=== PATIENT | female | born 1940 | race Caucasian/White ===

== ENCOUNTER 2020-01-31 17:51 | Outpatient (CLI) | payer MEDICARE, MEDICAID, SELFPAY ==
[2020-01-31 18:25] LABS: Basophils % 0.4 %; Eosinophils # 0.1 10^3/uL (0.0-0.8); Eosinophils % 1.1 %; Hematocrit 34.4 % (37.0-47.0); Hemoglobin 10.5 g/dL (11.5-15.3); Lymphocytes # 0.8 10^3/uL (0.8-4.8); Lymphocytes % 15.4 %; Mean Corpuscular HGB Conc 30.5 g/dL (30.0-36.0); Mean Corpuscular Hemoglobin 33.2 pg (28.0-34.0); Mean Corpuscular Volume 108.9 fL (81-99); Mean Platelet Volume 10.6 fL (7.4-10.4); Monocytes # 0.9 10^3/uL (0.2-0.9); Monocytes % 16.1 %; Neutrophils # 3.49 10^3/uL (1.8-7.7); Neutrophils % 66.2 %; Nucleated Red Blood Cells % 0 %; Platelet Count 209 10^3/cmm (130-400); Red Blood Count 3.16 10^6/uL (4.1-5.3); Red Cell Distribution Width 13.1 % (12.1-15.1); White Blood Count 5.3 10^3/uL (4.0-10.0)
[2020-01-31 18:48] LABS: Alanine Aminotransferase 17 U/L (0-33); Albumin Level 4.1 g/dL (3.5-5.2); Alkaline Phosphatase 104 IU/L (35-105); Anion Gap 18.9 (5-19); Aspartate Amino Transferase 21 U/L (0-32); Blood Urea Nitrogen 69 mg/dL (8-23); Carbon Dioxide 23 mmol/L (22-29); Chloride 103 mmol/L (98-107); Globulin 2.7 g/dL (1.3-4.6); Glucose 166 mg/dL (65-115); Osmolality Calculated 293 mOsm/kg (285-295); Potassium 4.9 mmol/L (3.5-5.1); Sodium 140 mmol/L (136-145); Total Bilirubin 0.2 mg/dL (0.15-1.2); Total Protein 6.8 g/dL (6.6-8.7)
== END 2020-01-31 17:52 | disposition home or self-care (01) ==
LOC: LAB 17:58
PROVIDERS: Visit Provider Internal Medicine
DX: N18.9 Chronic kidney disease, unspecified (principal)
CPT/HCPCS: 80053; 85025

== ENCOUNTER 2020-08-19 06:00 | Outpatient (RCR) | payer MEDICARE, MEDICAID, SELFPAY | END 2020-08-27 23:59 | disposition home or self-care (01) | LOC: SOT 06:00 | PROVIDERS: Referring Provider Family Medicine; Visit Provider Family Medicine | DX: R53.1 Weakness (principal); W19.XXXD Unspecified fall, subsequent encounter | CPT/HCPCS: 97167; 97530 ==

== ENCOUNTER → 2020-09-19 10:50 | Outpatient (BNVA) | payer MEDICARE, MEDICAID, SELFPAY | PROVIDERS: Visit Provider Surgery | DX: Z01.812 Encounter for preprocedural laboratory examination (principal); Z20.822 Contact with and (suspected) exposure to COVID-19 | CPT/HCPCS: 87635 ==

== ENCOUNTER 2020-09-24 09:23 | Day surgery (SDC) | payer MEDICARE, MEDICAID, SELFPAY ==
[2020-09-24] VITALS (12 sets, daily range): BP systolic 132–171; BP diastolic 63–98; PULSE 79–88; RESP 12–88; TEMP 36.1–36.5; O2SAT 93–99; BMI 31.6
--- NOTE | 2020-09-24 10:03 | W.PM.OPSUD ---
Surgery/Procedure H&P Update DATE OF PROCEDURE: September 24, 2020 DATE H&P PERFORMED: 09/09/20 H&P UPDATE INFORMATION: I have reviewed H&P completed within last 30 days, I have examined patient prior to procedure and No changes to prior documentation PREOP DIAGNOSIS: ckd PLANNED PROCEDURE: Operation Date: 09/24/20 11:10 Proposed Procedures p Lap Possible Open Peritoneal Dialysis Catheter Placement 78020 n18.9(Not Applicable) - Jad Rausch MD
--- NOTE | 2020-09-24 10:06 | ANES.PREANE2 ---
Pre-Anesthetic Assessment Pre-Anesthetic Assessment: Height/Weight: Height 1.65 m Weight 86.183 kg Temp Pulse Resp BP Pulse Ox 96.9 F L 79 18 171/98 99 09/24/20 09:40 09/24/20 09:40 09/24/20 09:40 09/24/20 09:40 09/24/20 09:40 Preop Diagnosis: ckd Proposed Procedure: Operation Date: 09/24/20 11:10 Proposed Procedures p Lap Possible Open Peritoneal Dialysis Catheter Placement 52810 n18.9(Not Applicable) - Jad Rausch MD Familial anesthetic complications: None Was Beta Susy taken within 24 hours: Yes Was Clonidine taken within 24 hours: N/A Last intake: Intake Last Liquid Date 09/23/20 Last Liquid Time 22:30 Last Solid Date 09/23/20 Last Solid Time 22:30 Social: Social History: No alcohol and No tobacco Exam: Pre-Anes Outpt Exam: alert, oriented x 3, clear to auscultation bilaterally and regular rate & rhythm Airway: Cervical ROM: WNL MP: 4 Dentition: Chipped Pulmonary: Comments: Hx pneumonia now requires breathing treatments CV/HEM: CV/HEM: CAD (CABG and 2 stents (> 1 year ago)) and HTN : : Chronic renal Insufficiency GI: GI: GERD Metabolic: Metabolic: DM and Hyperlipidemia Musc/skel: Comments: unable to walk - uses wheelchair, denies any neurologic issues or injuries. States she became weak after her open heart surgery and was unable to bear her weight Anesthetic Plan: ASA status: 4 Anesthesia: General Risk of > 500 ml blood loss (7ml/kg in children): No PFSH Anesthesia PFSH: Medical History (Updated 09/09/20 @ 15:28 by Jad Rausch MD) Anemia Atrial fibrillation CAD (coronary artery disease) Chronic kidney disease Diabetes mellitus Hyperlipidemia Surgical History (Updated 09/09/20 @ 15:26 by Jad Rausch MD) Hx of tonsillectomy S/P CABG x 4 S/P coronary artery stent placement Status post colonoscopy Status post right breast lumpectomy Social History Smoking and tobacco status: former smoker Data Anesthesia Cardiac Studies: No Data to Display
[2020-09-24] MEDS: sodium chloride 0.9% 1,000 ML 30 ML IV (10:13)
[2020-09-24 10:19] LABS: Glucose Point of Care 143 mg/dL (70-110)
[2020-09-24] MEDS: heparin, porcine 1,000 unit/mL INJ 10 mL 10000 UNIT IRRIGATION (10:50)
--- NOTE | 2020-09-24 11:15 | PM.OP ---
Operative Report Date of procedure: September 24, 2020 Pre-op Diagnosis: CKD requiring dialysis Post-op diagnosis: same Procedure Done: Laparoscopic placement of peritoneal dialysis catheter Pathology: none sent Surgeon: Jad Rausch Anesthesia: General Condition: stable Disposition: PACU Procedure: The patient was taken to the operating room and intubated under general anesthesia after IV antibiotic had been administered. The abdomen was prepped and draped in a sterile manner. Using 15 blade a 1 cm incision was made in the left upper quadrant and a Veress needle introduced to create 15 mm of pneumoperitoneum. Using Optiview technique, a 5 mm port was placed and a 5 mm 30? scope was introduced. Another 5 mm port was placed in the left lower quadrant at the level of the umbilicus in the midclavicular line. The pigtail peritoneal dialysis catheter was placed on the abdominal wall and the position marked, an introducer needle was passed through the abdominal wall to the right of the midline inferior to the umbilicus, guidewire passed through the introducer needle, the needle was removed and a dilator sheath was placed over the guidewire and inner dilator and guidewire was removed. The pigtail catheter was introduced as the peel-away sheath was removed with the tip of the catheter in the pelvis and the cuff within the rectus muscle. The catheter was tunneled proximally to exit in the right upper quadrant. A subcutaneous pocket was created. The catheter was attached to a saline bag and there was good inflow and outflow noted. 20 mL of 1:10,000 heparin was injected into the tube. The ports were removed under direct visualization and there was no bleeding from the port sites. The skin at the 5 mm port sites were closed using 4-0 Monocryl and Dermabond. Sterile dressings were applied at the catheter site. The patient was extubated and transferred to recovery room in stable condition.
[2020-09-24] MEDS: ondansetron 2 mg/ML SDV 2 mL 4 MG IVP ×2 (11:19→11:24)
[2020-09-24] MEDS: fentaNYL 50 mcg/mL INJ 2mL IVP ×2 (11:22→11:27)
[2020-09-24] MEDS: HYDROcodone-acetaminophen 5-325 mg Tablet 1 TAB PO (12:36)
--- NOTE | 2020-09-24 13:23 | ANE.PACU2 ---
Inpatient post-anesthesia follow up: Airway intact: Yes Vital signs: Temperature 97.7 F Pulse Rate 86 Respiratory Rate 18 Blood Pressure 167/75 Pulse Oximetry 96 Oxygen Delivery Me thod Room Air Oxygen Flow Rate Fraction of Inspir ed Oxygen Hydration adequate: Yes Nausea and vomiting: No Pain level: 1 Mental status: Baseline
== END 2020-09-24 13:43 | disposition home or self-care (01) ==
PROVIDERS: Visit Provider Surgery
PROC: 0WHG43Z Insertion of Infusion Device into Peritoneal Cavity, Percutaneous Endoscopic Approach (ICD-10-PCS; CPT 49324; principal; 2020-09-24 11:10)
DX: E11.22 Type 2 diabetes mellitus with diabetic chronic kidney disease (principal); I12.0 Hypertensive chronic kidney disease with stage 5 chronic kidney disease or end stage renal disease; N18.6 End stage renal disease; Z99.2 Dependence on renal dialysis; I25.10 Atherosclerotic heart disease of native coronary artery without angina pectoris; Z95.1 Presence of aortocoronary bypass graft; Z95.5 Presence of coronary angioplasty implant and graft; K21.9 Gastro-esophageal reflux disease without esophagitis; E78.5 Hyperlipidemia, unspecified; Z87.891 Personal history of nicotine dependence
CPT/HCPCS: 49324; 36416; 82962; C1750; J0690; J1644; J2405; J2704; J2710; J3010; J3490; J7030

== ENCOUNTER 2020-10-24 22:49 | Emergency (ER) | payer MEDICARE, MEDICAID, SELFPAY ==
[2020-10-24 22:52] VITALS: BP 115/56; PULSE 108; RESP 22; TEMP 37.2; O2SAT 98; BMI 31.8
[2020-10-24 22:56] VITALS: BP 129/63; PULSE 70; RESP 17; TEMP 36.8; O2SAT 99
--- NOTE | 2020-10-24 23:01 | ED_ITS ---
HPI - General Adult General: Chief complaint: Fever Stated complaint: abd pain Time Seen by Provider: 10/24/20 22:58 History of Present Illness: HPI narrative: Patient presents via ambulance with complaint of possible infection to skin the lower abdomen. Patient states that she was seen here by family because they said her skin was infected. Patient recently had dialysis catheter placed Associated symptoms: Deny chest pain, dyspnea, headache(s), nausea, rash or vomiting Review of Systems Const: Denies: fever(s), chills or body aches Eyes: Denies: change in vision or blurry vision ENMT: Denies: throat pain or nasal congestion Card: Denies: chest pain or dyspnea on exertion Resp: Denies: dyspnea, productive cough or non-productive cough GI: Denies: abdominal pain, nausea or vomiting Musc: Denies: extremity pain Skin/Breast: Reports: erythema (Lower abdomen area) and skin tenderness; Denies: rash Neuro: Denies: headache(s) Psych: Denies: anxiety or depression Chito/Lymph: Denies: easy bruising PFSH ED PFSH: Medical History Anemia Atrial fibrillation CAD (coronary artery disease) Chronic kidney disease Diabetes mellitus Hyperlipidemia Surgical History Hx of tonsillectomy Peritoneal dialysis catheter in situ (09/24/20) S/P CABG x 4 S/P coronary artery stent placement Status post colonoscopy Status post right breast lumpectomy Social History Smoking and tobacco status: former smoker Physical Exam Const: COMMON NORMALS: no acute distress Chest: COMMONS NORMALS: normal inspection of the chest Resp: COMMON NORMALS: normal respiratory effort and clear to auscultation bilaterally AUSCULTATION: clear to auscultation bilaterally Cardio: COMMON NORMALS: regular rate RATE: regular rate Skin: WOUNDS: Yes surgical site (Appears normal. Below the wound there is superficial redness to the skin) Details: other (Redness extends across lower abdomen probably 4 to 5 inches and 3 inches vertically) Course Vital Signs: Vital signs: Vital Signs Temperature 98.2 F 10/24/20 22:56 Pulse Rate 70 10/24/20 22:56 Respiratory Rate 17 10/24/20 22:56 Blood Pressure 129/63 10/24/20 22:56 Pulse Oximetry 99 10/24/20 22:56 MDM - General Adult MDM Narrative: Medical decision making narrative: Discussed presentation patient signs symptoms with Dr. Cortez- went over the labs. Patient is not started peritoneal dialysis get that scheduled in 2 weeks. Gregg seems to have a mild cellulitis to the upper fat layer that extends out both sides of the abdomen nontender very superficial. Lines been drawn to marked major how the redness is extended. Patient family member will observe and watch that. Lab Data: Labs: Lab Results 10/24/20 10/24/20 10/24/20 Range/Units 22:56 22:56 23:52 WBC 18.0 H (4.0-10.0) 10^3/ uL RBC 2.94 L (4.1-5.3) 10^6/u L Hgb 9.6 L (11.5-15.3) g/dL Hct 29.7 L (37.0-47.0) % MCV 101.0 H (81-99) fL MCH 32.7 (28.0-34.0) pg MCHC 32.3 (30.0-36.0) g/dL RDW 13.2 (12.1-15.1) % Plt Count 177 (130-400) 10^3/c mm MPV 10.5 H (7.4-10.4) fL Neut % (Auto) 96.0 % Lymph % (Auto) 1.0 % Meade % (Auto) 2.0 % Eos % (Auto) 0.0 % Baso % (Auto) 0.2 % Neut # (Auto) 17.28 H (1.8-7.7) 10^3/u L Lymph # (Auto) 0.2 L (0.8-4.8) 10^3/u L Meade # (Auto) 0.4 (0.2-0.9) 10^3/u L Eos # (Auto) 0.0 (0.0-0.8) 10^3/u L Baso # (Auto) 0.0 (0.0-0.1) 10^3/u L Nucleated RBC % (a uto) 0 % Nucleated RBCs # 0.0 /100WBC Sodium 135 L (136-145) mmol/L Potassium 4.0 (3.5-5.1) mmol/L Chloride 96 L (98-107) mmol/L Carbon Dioxide 20 L (22-29) mmol/L Anion Gap 23.0 H (5-19) BUN 87 H* (8-23) mg/dL Creatinine 3.8 H (0.5-0.9) mg/dL GFR Calculation Not Reportable Glucose 160 H (65-115) mg/dL Calculated Osmolal ity 310 H (285-295) mOsm/k g Lactic Acid 1.1 (0.5-2.2) mmol/L Calcium 9.8 (8.5-10.5) mg/dL Urine Color (Yellow) Urine Appearance (CLEAR) Urine pH (5-7) Ur Specific Gravit y (1.005-1.030) Urine Protein (Negative) Urine Glucose (UA) (Normal) Urine Ketones (Negative) Urine Blood (Negative) Urine Nitrate (Negative) Urine Bilirubin (Negative) Urine Urobilinogen (Negative) mg/dL Ur Leukocyte Bernadette ase (Negative) Urine RBC (0-2) /hpf Urine WBC (0-5) /hpf Ur Squamous Epith Cells (0-5) /hpf Amorphous Sediment Urine Bacteria (NONE) /hpf 10/24/20 Range/Units 23:52 WBC (4.0-10.0) 10^3/ uL RBC (4.1-5.3) 10^6/u L Hgb (11.5-15.3) g/dL Hct (37.0-47.0) % MCV (81-99) fL MCH (28.0-34.0) pg MCHC (30.0-36.0) g/dL RDW (12.1-15.1) % Plt Count (130-400) 10^3/c mm MPV (7.4-10.4) fL Neut % (Auto) % Lymph % (Auto) % Meade % (Auto) % Eos % (Auto) % Baso % (Auto) % Neut # (Auto) (1.8-7.7) 10^3/u L Lymph # (Auto) (0.8-4.8) 10^3/u L Meade # (Auto) (0.2-0.9) 10^3/u L Eos # (Auto) (0.0-0.8) 10^3/u L Baso # (Auto) (0.0-0.1) 10^3/u L Nucleated RBC % (a uto) % Nucleated RBCs # /100WBC Sodium (136-145) mmol/L Potassium (3.5-5.1) mmol/L Chloride (98-107) mmol/L Carbon Dioxide (22-29) mmol/L Anion Gap (5-19) BUN (8-23) mg/dL Creatinine (0.5-0.9) mg/dL GFR Calculation Glucose (65-115) mg/dL Calculated Osmolal ity (285-295) mOsm/k g Lactic Acid (0.5-2.2) mmol/L Calcium (8.5-10.5) mg/dL Urine Color Yellow (Yellow) Urine Appearance Clear (CLEAR) Urine pH 5 (5-7) Ur Specific Gravit y 1.010 (1.005-1.030) Urine Protein 1+ H (Negative) Urine Glucose (UA) Norm (Normal) Urine Ketones Negative (Negative) Urine Blood Neg (Negative) Urine Nitrate Negative (Negative) Urine Bilirubin Neg (Negative) Urine Urobilinogen Norm (Negative) mg/dL Ur Leukocyte Bernadette ase Negative (Negative) Urine RBC 0-4 H (0-2) /hpf Urine WBC 0-4 H (0-5) /hpf Ur Squamous Epith Cells 0-4 H (0-5) /hpf Amorphous Sediment Not Reportable Urine Bacteria Trace (NONE) /hpf Discharge Plan Discharge Patient Disposition: Home Clinical Impression: Cellulitis Qualifiers: Site of cellulitis: other site Qualified Code(s): L03.818 - Cellulitis of other sites Chronic kidney disease Qualifiers: Chronic kidney disease stage: stage 4 (severe) Qualified Code(s): N18.4 - Chronic kidney disease, stage 4 (severe) Condition: Stable Prescriptions: New cephalexin 250 mg capsule 250 mg PO TID 7 Days Qty: 21 RF: 0 No Action albuterol sulfate 0.63 mg/3 mL solution for nebulization 0.63 mg inhalation Q6H RF: 0 amiodarone 200 mg tablet 200 mg PO DAILY RF: 0 apixaban 2.5 mg tablet 2.5 mg PO BID RF: 0 Hold Instructions: Resume on 09/27/20. cholecalciferol (vitamin D3) 25 mcg (1,000 unit) capsule 25 mcg PO DAILY RF: 0 docusate sodium 50 mg/5 mL liquid 50 mg PO DAILY RF: 0 ferrous sulfate 325 mg (65 mg iron) tablet 325 mg PO DAILY RF: 0 furosemide 40 mg tablet 80 mg PO BID RF: 0 insulin lispro 100 unit/mL insulin pen 3 unit SUBCUT TID RF: 0 metoprolol succinate 25 mg tablet extended release 24 hr 12.5 mg PO DAILY RF: 0 mirtazapine 30 mg tablet 30 mg PO DAILY RF: 0 pantoprazole 20 mg tablet,delayed release (DR/EC) 20 mg PO DAILY RF: 0 potassium chloride 10 mEq capsule, extended release 10 meq PO DAILY RF: 0 sertraline 25 mg tablet 12.5 mg PO DAILY RF: 0 tramadol 50 mg tablet 50 mg PO Q6H PRN (Reason: Pain) RF: 0 simvastatin 20 mg tablet 20 mg PO DAILY RF: 0 calcium acetate 667 mg Tablet 667 mg PO TID RF: 0 Discharge Orders: Discharge ED (Routine); Ordered 10/25/20 Ordered By: Amado Church Discharge Diet: Usual diet Discharge Activity: Resume usual activity Patient Instructions: Cellulitis (ED) Activity Restrictions/Additional Instructions: Follow-up with medical provider as directed. Take medications as prescribed. Return to the ER or your medical provider if condition worsens. Please read and understand discharge instructions. If any questions ask please. Discussed patient's condition with Dr. Aburto's nurse tomorrow. Coding Level of Care Code ED Instructional Support Technician for Yulia Fwd Exam Detailed
[2020-10-24 23:11] LABS: Basophils % 0.2 %; Hematocrit 29.7 % (37.0-47.0); Hemoglobin 9.6 g/dL (11.5-15.3); Lymphocytes # 0.2 10^3/uL (0.8-4.8); Mean Corpuscular HGB Conc 32.3 g/dL (30.0-36.0); Mean Corpuscular Hemoglobin 32.7 pg (28.0-34.0); Mean Platelet Volume 10.5 fL (7.4-10.4); Monocytes # 0.4 10^3/uL (0.2-0.9); Neutrophils # 17.28 10^3/uL (1.8-7.7); Nucleated Red Blood Cells % 0 %; Platelet Count 177 10^3/cmm (130-400); Red Blood Count 2.94 10^6/uL (4.1-5.3); Red Cell Distribution Width 13.2 % (12.1-15.1)
[2020-10-24 23:25] LABS: Calcium 9.8 mg/dL (8.5-10.5); Carbon Dioxide 20 mmol/L (22-29); Chloride 96 mmol/L (98-107); Glucose 160 mg/dL (65-115); Osmolality Calculated 310 mOsm/kg (285-295); Sodium 135 mmol/L (136-145)
[2020-10-24 23:26] VITALS: BP 134/72; PULSE 72; RESP 16; TEMP 36.6; O2SAT 98
[2020-10-24 23:30] LABS: Blood Urea Nitrogen 87 mg/dL (8-23)
--- NOTE | 2020-10-24 23:32 | ECG_ITS ---
[facility] Test Date: 2020-10-24 Pat Name: Marie Bryant Department: Room: Gender: Female [employer] Operator: : 1940 Requested By: Amado Church Order Number: [id number] Daljit MD: Eusebio Rojo M.D. Measurements Intervals [place] Rate: 86 P: DC: QRS: -19 QRSD: 121 T: -4 QT: 289 QTc: 346 Interpretive Statements ATRIAL FIBRILLATION MODERATE VOLTAGE CRITERIA FOR LVH, CONSIDER NORMAL VARIANT [MEETS CRITERIA IN ONE OF: R(aVL), S(V1), R(V5), R(V5/V6)+S(V1)] POSSIBLE ANTERIOR MYOCARDIAL INFARCTION , OF INDETERMINATE AGE [30 ms Q WAVE IN V3/V4, OR R < 0.2 mV IN V4] INFERIOR MYOCARDIAL INFARCTION , OF INDETERMINATE AGE [40+ ms Q WAVE AND/OR ST/T ABNORMALITY IN II/aVF] Compared to ECG 10/04/2017 15:04:16 Indeterminate axis now present Myocardial infarct finding now present Sinus rhythm no longer present Electronically Signed On 10-26-2020 16:03:48 CDT by Eusebio Rojo M.D. [email or web address]
--- NOTE | 2020-10-24 23:33 | XRR_ITS ---
PROCEDURE INFORMATION: Exam: XR Chest Exam date and time: 10/24/2020 11:34 PM Age: 79 years old Clinical indication: Fever; Prior surgery TECHNIQUE: Imaging protocol: XR of the chest. Views: 1 view. COMPARISON: CR Chest 1 view [id number] 10/06/2017 5:05 AM FINDINGS: Lungs: Unremarkable. No consolidation. Pleural spaces: Unremarkable. No pleural effusion. No pneumothorax. Heart/Mediastinum: Changes of coronary artery bypass are noted. Bones/joints: No acute findings. XR/XR chest 1V portable [id number] IMPRESSION: No acute findings.
[2020-10-25 00:18] LABS: Lactic Sepsis W/Reflex 1.1 mmol/L (0.5-2.2)
[2020-10-25 00:23] LABS: Add Urine Microscopic? YES; Bilirubin Urine Neg (Negative); Blood Urine Neg (Negative); Glucose Urine UA Norm (Normal); Ketones Urine Negative (Negative); Leukocyte Esterase Urine Negative (Negative); Nitrate Urine Negative (Negative); Protein Urine 1+ (Negative); Urine Appearance Clear (CLEAR); Urine Color Yellow (Yellow); Urobilinogen Urine Norm (Negative); pH Urine 5 (5-7)
[2020-10-25 00:24] LABS: Bacteria Urine TRACE /hpf; RBC Urine 0-4 /hpf (0-2); Squamous Epithelial Cell Urine 0-4 /hpf (0-5); WBC Urine 0-4 /hpf (0-5)
[2020-10-25] MEDS: acetaminophen 500 mg Tablet PO (00:43)
== END 2020-10-25 01:26 | disposition home or self-care (01) ==
PROVIDERS: Emergency Provider Nurse Practitioner Family
DX: L03.818 Cellulitis of other sites (principal); E11.22 Type 2 diabetes mellitus with diabetic chronic kidney disease; N18.4 Chronic kidney disease, stage 4 (severe); Z79.4 Long term (current) use of insulin; I48.91 Unspecified atrial fibrillation; I25.10 Atherosclerotic heart disease of native coronary artery without angina pectoris; E78.5 Hyperlipidemia, unspecified; Z95.1 Presence of aortocoronary bypass graft; Z87.891 Personal history of nicotine dependence
CPT/HCPCS: 71045; 80048; 81001; 83605; 85025; 87040; 87077; 87186; 93005; 96365; 99284; J0696

== ENCOUNTER 2021-03-23 10:51 | Outpatient (CLI) | payer MEDICARE, MEDICAID, SELFPAY ==
--- NOTE | 2021-03-23 11:01 | XR_ITS ---
WS: [id number] Exam: XR cervical spine 3V* [id number] Date/Time of Exam: 03/23/2021 11:01 AM Reason For Exam: ACUTE TORTICOLLIS No acute fracture or dislocation. The odontoid is intact. Degenerative disc changes and facet DJD at all levels. Paraspinal soft tissues are unremarkable. XR/XR cervical spine 3V* [id number] IMPRESSION: 1. Degenerative changes. No fracture or malalignment.
== END 2021-03-23 10:52 | disposition home or self-care (01) ==
LOC: RAD 10:56
PROVIDERS: PCP Family Medicine; Visit Provider Family Medicine
DX: M43.6 Torticollis (principal)
CPT/HCPCS: 72040

== ENCOUNTER 2021-05-29 12:49 | Inpatient (IN) | payer MEDICARE, MEDICAID, SELFPAY ==
[2021-05-29] VITALS (16 sets, daily range): BP systolic 74–113; BP diastolic 39–57; PULSE 66–105; RESP 15–27; TEMP 36.6; O2SAT 88–100; BMI 33.3; BMI 31.3
--- NOTE | 2021-05-29 12:54 | XR_ITS ---
WS: [id number] CHEST XRAY TECHNIQUE: Portable chest. CLINICAL INFORMATION: dyspnea/cough COMPARISON: October 24, 2020 FINDINGS: Heart: Cardiomegaly. Sternotomy. CABG. Aortic calcification. Lungs:Shallow inspiration. Moderate to advanced chronic emphysematous changes. Fibrosis in the lung a pices. No acute-appearing pulmonary infiltrates. Bones: Osteopenia. XR/XR chest 1V portable [id number] IMPRESSION: 1. Cardiomegaly with prior CABG. 2. Moderate to advanced chronic emphysematous changes. No acute pulmonary infi ltrates.
--- NOTE | 2021-05-29 12:54 | CT_ITS ---
WS: [id number] CT HEAD TECHNIQUE: Noncontrast CT of the head obtained from the skullbase to the vertex. CLINICAL INFORMATION: AMS COMPARISON: CT 4 DLP: 1022.[address] scans at [facility] use at least one of these dose optimization techniques: automated e xposure control; mA and/or kV adjustment per patient size (includes targeted exams where dose is matc hed to clinical indication); or iterative reconstruction. FINDINGS: Low-attenuation change in the right posterior temporal lobe extending to the cortex in the right DOG TRAINER territory measuring 3.5 x 3.5 cm compatible with subacute DOG TRAINER territory infarct. No evidence of intr acranial hemorrhage. Incidental dystrophic calcification left frontal white matter unchanged. Intracr anial vascular calcification. Mild small vessel changes. Moderate parenchymal volume loss. A few tiny chronic lacunar infarcts in the left basal ganglia. Tiny chronic lacunar infarct right cerebellum. M astoid air cells and paranasal sinuses are well aerated. CT/CT head wo con* [id number] IMPRESSION: 1. No evidence of intracranial hemorrhage 2. Low-attenuation change in the right DOG TRAINER territory extending to the cortex i nvolves the posterior right temporal lobe measuring 3.5 x 3.5 cm compatible wit h subacute DOG TRAINER territory infarct. 3. Mild small vessel changes with moderate parenchymal volume loss. Notified Tera Lemons DO at 05/29/2021 1:41 PM.
--- NOTE | 2021-05-29 12:54 | W.ED.GENADLT ---
HPI - General Adult General: Chief complaint: Weakness Stated complaint: DECREASED RESPONSIVENESS/ DECREASED BP Time Seen by Provider: 05/29/21 12:54 History of Present Illness: HPI narrative: 80-year-old female presents emergency room via EMS with complaints of generalized weakness and decreased responsiveness. She barely speaks both whisper but she does answer all questions appropriately she just seems very lethargic. Extremely weak. Her only complaint seems to have some mild abdominal discomfort denies any chest pain. Patient is on peritoneal dialysis. Currently she does have a little treatment of peritoneal dialysis fluid in her abdomen. She has not had any fever sweats or chills. She denies any shortness of breath. No vomiting or diarrhea. Abdominally this began through the night and progressively worsened through the day. She has history of diabetes mellitus atrial fibrillation is on Eliquis she also has a history of hypertension. She is on amlodipine amiodarone diuretics and metoprolol. Onset (ago): hour(s) Location: abdomen Radiation: non-radiation Severity: mild Quality: aching Pain Consistency: constant Relieving factors: none Exacerbating factors: other (Palpation) Associated symptoms: Reports malaise and weakness; Deny chest pain, confusion, cough, diaphoresis, decreased appetite, dyspnea, fevers/chills, headache(s), nausea, rash, palpitations, seizures, short of breath, syncope or vomiting Treatments prior to arrival: none Review of Systems Const: Reports: malaise; Denies: diaphoresis ENMT: Denies: throat pain, ear or mastoid pain, nasal discharge or nasal congestion Card: Denies: chest pain, palpitations or syncope Resp: Denies: dyspnea GI: Denies: nausea or vomiting : Denies: flank pain, difficulty voiding, dysuria, urinary frequency or urinary urgency Skin/Breast: Denies: rash Neuro: Denies: headache(s) or confusion PFS ED PFSH: Medical History (Updated 05/30/21 @ 14:18 by Tera Lemons DO) Anemia Atrial fibrillation CAD (coronary artery disease) Chronic kidney disease Diabetes mellitus GERD (gastroesophageal reflux disease) HTN (hypertension) Hyperlipidemia Sepsis Surgical History Hx of tonsillectomy Peritoneal dialysis catheter in situ (09/24/20) S/P CABG x 4 S/P coronary artery stent placement Status post colonoscopy Status post right breast lumpectomy Family History (Updated 05/30/21 @ 12:20 by Nancy Malave MD) Other Medical history non-contributory Social History Smoking and tobacco status: former smoker Physical Exam Const: COMMON NORMALS: no acute distress GENERAL APPEARANCE: cooperative and comfortable HENMT: COMMON NORMALS: normocephalic, atraumatic and hearing grossly normal bilaterally HEAD & SCALP: normocephalic and atraumatic Neck/C-Spine: COMMON NORMALS: no JVD Resp: COMMON NORMALS: normal respiratory effort, No retractions, No use of accessory muscles and clear to auscultation bilaterally AUSCULTATION: clear to auscultation bilaterally Cardio: COMMON NORMALS: no JVD, regular rate, regular rhythm and No murmurs present (Cardio) RATE: regular rate RHYTHM: regular rhythm GI: COMMON NORMALS: Soft to palpation and No hepatosplenomegaly present AUSCULTATION: Yes normoactive bowel sounds PALPATION: Yes Soft to palpation, No Tenderness to palpation present (GI), No Guarding due to palpation present (GI) and Yes No hepatosplenomegaly present Extremity: COMMON NORMALS: normal to inspection, capillary refill normal, no clubbing, cyanosis or edema, no calf tenderness and no pedal edema Skin: COMMON NORMALS: no rashes or lesions noted GENERAL SKIN EXAM: no rashes or lesions noted Course Vital Signs: Vital signs: Vital Signs Temperature 97.8 F 05/29/21 19:09 Pulse Rate 82 05/30/21 11:00 Respiratory Rate 24 H 05/30/21 11:00 Blood Pressure 97/50 05/30/21 11:00 Pulse Oximetry 96 05/30/21 11:00 MDM - General Adult MDM Narrative: Medical decision making narrative: Patient significantly hypokalemic. She also has a new subacute stroke on plain CT. Her last known well time is well outside of the frame of treatment. In addition to that she is on anticoagulation. Her stroke score is 4. I drilled down to the family it would seem that her last known well time was sometime around 530 or 6:00 last evening nearing 24 hours. I did contact Dr. Richards presented the case to her she agreed that she really is not a candidate for any kind of intervention. Will admit for stroke as well as severe hypokalemia discussed with hospitalist orders written Lab Data: Labs: Lab Results 05/29/21 05/29/21 05/29/21 12:22 12:22 12:22 WBC 16.7 10^3/uL H 10 ^3/uL (4.0-10.0) RBC 3.42 10^6/uL L 10 ^6/uL (4.1-5.3) Hgb 12.0 g/dL g/dL (11.5-15.3) Hct 35.8 % L % (37.0-47.0) MCV 104.7 fl H fl (81-99) MCH 35.1 pg H pg (28.0-34.0) MCHC 33.5 g/dL g/dL (30.0-36.0) RDW 21.1 % H % (12.1-15.1) Plt Count 160 10^3/cmm 10^3 /cmm (130-400) MPV 11.5 fL H fL (7.4-10.4) Lymph % (Auto) Not Reportable [place] % (Auto) Not Reportable Lymph # (Auto) Not Reportable [place] # (Auto) Not Reportable Total Counted Atypical Lymphs % Segmented Neutroph ils Band Neutrophils Lymphocytes (Manua l) Monocytes (Manual) Eosinophils (Manua l) Basophils (Manual) Nucleated RBCs Platelet Estimate Polychromasia Poikilocytosis Anisocytosis Ovalocytes Specimen Type Sample Site ABG pH ABG pCO2 ABG pO2 ABG HCO3 ABG O2 Saturation ABG Base Excess Dayne Test A-a O2 Gradient Hematocrit Hgb O2 Saturation Carboxyhemoglobin Methemoglobin Total Hemoglobin Ionized Calcium O2 Delivery Device O2 Liters/Min FiO2 Core Blower Operator ID Sodium 133 mmol/L L mmol /L (136-145) Potassium 1.5 mmol/L L* mmo l/L (3.5-5.1) Chloride 89 mmol/L L mmol/ L (98-107) Carbon Dioxide 25 mmol/L mmol/L (22-29) Anion Gap 20.5 H (5-19) BUN 36 mg/dL H mg/dL (8-23) Creatinine 4.2 mg/dL H mg/dL (0.5-0.9) GFR Calculation Not Reportable Glucose 111 mg/dL mg/dL (65-115) Calculated Osmolal ity 285 mOsm/kg mOsm/ kg (285-295) Lactic Acid Calcium 9.8 mg/dL mg/dL (8.5-10.5) Magnesium 1.5 mg/dL L mg/dL (1.7-2.3) Total Bilirubin 0.4 mg/dL mg/dL (0.15-1.2) AST 20 U/L U/L (0-32) ALT 21 U/L U/L (0-33) Alkaline Phosphata se 143 IU/L H IU/L (35-105) Creatine Kinase 50 U/L U/L (26-192) Troponin T Baselin e Troponin T 120 Min [place] Troponin T C-Reactive Protein 50.8 mg/L H mg/L (0.0-4.9) Total Protein 5.5 g/dL L g/dL (6.6-8.7) Albumin 2.9 g/dL L g/dL (3.5-5.2) Globulin 2.6 g/dL g/dL (1.3-4.6) Triglycerides Cholesterol LDL Cholesterol, C alc Total VLDL Cholest golden HDL Cholesterol Cholesterol/HDL Ra rob Lipase 24 U/L U/L (13-60) Procalcitonin 1.22 ng/mL H ng/m L (0-0.5) Serum Ketones Negative (Negative) 05/29/21 05/29/21 05/29/21 12:22 12:22 12:22 WBC RBC Hgb Hct MCV MCH MCHC RDW Plt Count MPV Lymph % (Auto) [place] % (Auto) Lymph # (Auto) [place] # (Auto) Total Counted 100 (0-100) Atypical Lymphs % 1.0 % % (0-5) Segmented Neutroph ils 89 % % Band Neutrophils 2.0 % % Lymphocytes (Manua l) 3 % % Monocytes (Manual) 5.0 % % Eosinophils (Manua l) 0 % % Basophils (Manual) 0.0 % % Nucleated RBCs 6.0 /100WBC H /10 0WBC (0-1) Platelet Estimate Normal (Normal) Polychromasia 1+ H Poikilocytosis Trace Anisocytosis Trace Ovalocytes Trace Specimen Type Sample Site ABG pH ABG pCO2 ABG pO2 ABG HCO3 ABG O2 Saturation ABG Base Excess Dayne Test A-a O2 Gradient Hematocrit Hgb O2 Saturation Carboxyhemoglobin Methemoglobin Total Hemoglobin Ionized Calcium O2 Delivery Device O2 Liters/Min FiO2 Core Blower Operator ID Sodium Potassium Chloride Carbon Dioxide Anion Gap BUN Creatinine GFR Calculation Glucose Calculated Osmolal ity Lactic Acid Calcium Magnesium Total Bilirubin AST ALT Alkaline Phosphata se Creatine Kinase Troponin T Baselin e 257 ng/L H* ng/L (0-10) Troponin T 120 Min [place] Troponin T C-Reactive Protein Total Protein Albumin Globulin Triglycerides 155 mg/dL H mg/dL (0-150) Cholesterol 126 mg/dL mg/dL (0-200) LDL Cholesterol, C alc 45 mg/dL L mg/dL (50-129) Total VLDL Cholest golden 31 mg/dL H mg/dL (0-30) HDL Cholesterol 50 mg/dL L mg/dL (60-100) Cholesterol/HDL Ra rob 2.52 mg/dL mg/dL (0.0-4.40) Lipase Procalcitonin Serum Ketones 05/29/21 05/29/21 05/29/21 13:12 14:00 14:32 WBC RBC Hgb Hct MCV MCH MCHC RDW Plt Count MPV Lymph % (Auto) [place] % (Auto) Lymph # (Auto) [place] # (Auto) Total Counted Atypical Lymphs % Segmented Neutroph ils Band Neutrophils Lymphocytes (Manua l) Monocytes (Manual) Eosinophils (Manua l) Basophils (Manual) Nucleated RBCs Platelet Estimate Polychromasia Poikilocytosis Anisocytosis Ovalocytes Specimen Type Arterial Sample Site Brachial, left ABG pH 7.49 H (7.35-7.45) ABG pCO2 36.5 mmHg mmHg (35-45) ABG pO2 59.5 mmHg L mmHg (80.0-100.0) ABG HCO3 27.5 mmol/L H mmo l/L (22-26) ABG O2 Saturation 93.1 ABG Base Excess 4.0 mmol/L H mmol /L (-2.0-2.0) Dayne Test N/a A-a O2 Gradient 15.6 mmHg H mmHg (5-10) Hematocrit 34.3 % L % (37-47) Hgb O2 Saturation 91.9 % L % (95-100) Carboxyhemoglobin 0.6 %THgb %THgb (0.4-20.1) Methemoglobin 0.7 % % (0.4-1.5) Total Hemoglobin 11.2 g/dL L g/dL (12-16) Ionized Calcium 1.4 mmol/L mmol/L (1.1-1.4) O2 Delivery Device Nc O2 Liters/Min 3.0 % % FiO2 32.0 % % Core Blower Operator ID Gd Sodium 132.0 mmol/L mmol /L (131-143) Potassium 1.7 mmol/L L mmol /L (3.5-5.0) Chloride Carbon Dioxide Anion Gap BUN Creatinine GFR Calculation Glucose 84.0 mg/dL mg/dL (70-115) Calculated Osmolal ity Lactic Acid 4.2 mmol/L H* mmo l/L (0.5-2.2) Calcium Magnesium Total Bilirubin AST ALT Alkaline Phosphata se Creatine Kinase Troponin T Baselin e Troponin T 120 Min [place] 238.2 ng/L H ng/L (0-10) Delta Troponin T -18.8 ABS# L ABS# (0-10) C-Reactive Protein Total Protein Albumin Globulin Triglycerides Cholesterol LDL Cholesterol, C alc Total VLDL Cholest golden HDL Cholesterol Cholesterol/HDL Ra rob Lipase Procalcitonin Serum Ketones Discharge Plan Discharge Patient Disposition: Admitted As Inpatient Admit Provider: Nancy Malave Clinical Impression: CVA (cerebral vascular accident), Chronic anticoagulation, End stage renal failure on dialysis, GERD (gastroesophageal reflux disease), HTN (hypertension), Acute hypokalemia Condition: Stable Coding Level of Care Code ED Hydro Mechanic for g Fwd Exam Comprehensive NIH stroke score NIHSS Level Of Consciousness - 1a: 1 Level Of Consciousness Questions - 1b: Both Correct Level Of Consciousness Commands - 1c: Both Correct Best Gaze - 2: Normal Visual Espinoza - 3: No Visual Loss Facial Palsy - 4: Normal Motor Arm Right - 5: No Drift Motor Arm Left - 5: Drift Motor Leg Right - 6: No Drift Motor Leg Left - 6: Drift Limb Ataxia - 7: Absent Sensory - 8: Normal Best Language - 9: No Aphasia Dysarthia - 10: Mild/Moderate Dysarthia Extinction And Inattention - 11: 0 Score Total Score: 4
--- NOTE | 2021-05-29 12:55 | ECG_ITS ---
[facility] Test Date: 2021-05-29 Pat Name: Marie Bryant Department: Room: ICU04 Gender: Female Motor And Generator Assembler: : 1940 Requested By: Tera Platt Order Number: [id number] Reading MD: Eusebio Rojo M.D. Measurements Intervals [place] Rate: 80 P: [place]: QRS: -24 QRSD: 141 T: 0 QT: 241 QTc: 279 Interpretive Statements ATRIAL FIBRILLATION INDETERMINATE AXIS INTRAVENTRICULAR CONDUCTION DELAY [130+ ms QRS DURATION] POSSIBLE ANTERIOR MYOCARDIAL INFARCTION , PROBABLY OLD [30 ms Q WAVE IN V3/V4, OR R < 0.2 mV IN V4] INFERIOR MYOCARDIAL INFARCTION , PROBABLY OLD [40+ ms Q WAVE AND/OR ST/T ABNORMALITY IN II/aVF] Compared to ECG 10/24/2020 23:47:20 Indeterminate axis now present Intraventricular conduction delay now present Myocardial infarct finding still present Electronically Signed On 05-30-2021 4:48:19 RN CLINICAL RESEARCH by Eusebio Rojo M.D. [id number] f
--- NOTE | 2021-05-29 13:04 | PC.NURSE ---
PT PLACED ON CONTINUOUS SPO2, NIBP, AND CM.
[2021-05-29 13:09] LABS: Hematocrit 35.8 % (37.0-47.0); Mean Corpuscular HGB Conc 33.5 g/dL (30.0-36.0); Mean Corpuscular Hemoglobin 35.1 pg (28.0-34.0); Mean Corpuscular Volume 104.7 fl (81-99); Mean Platelet Volume 11.5 fL (7.4-10.4); Platelet Count 160 10^3/cmm (130-400); Red Blood Count 3.42 10^6/uL (4.1-5.3); Red Cell Distribution Width 21.1 % (12.1-15.1); White Blood Count 16.7 10^3/uL (4.0-10.0)
--- NOTE | 2021-05-29 13:22 | PC.NURSE ---
TO CT VIA STRETCHER MECHANICAL SHOP LABORER NURSE AND MONITOR.
[2021-05-29 13:26] LABS: Ketone (Acetest) Serum Negative (Negative)
[2021-05-29 13:31] LABS: Alanine Aminotransferase 21 U/L (0-33); Albumin Level 2.9 g/dL (3.5-5.2); Alkaline Phosphatase 143 IU/L (35-105); Anion Gap 20.5 (5-19); Aspartate Amino Transferase 20 U/L (0-32); Blood Urea Nitrogen 36 mg/dL (8-23); C Reactive Protein 50.8 mg/L (0.0-4.9); Calcium 9.8 mg/dL (8.5-10.5); Carbon Dioxide 25 mmol/L (22-29); Chloride 89 mmol/L (98-107); Creatine Phosphokinase 50 U/L (26-192); Globulin 2.6 g/dL (1.3-4.6); Glucose 111 mg/dL (65-115); Lipase 24 U/L (13-60); Magnesium 1.5 mg/dL (1.7-2.3); Osmolality Calculated 285 mOsm/kg (285-295); Sodium 133 mmol/L (136-145); Total Bilirubin 0.4 mg/dL (0.15-1.2); Total Protein 5.5 g/dL (6.6-8.7)
[2021-05-29 13:38] LABS: Procalcitonin 1.22 ng/mL (0-0.5)
[2021-05-29 13:45] LABS: Troponin(5th) Baseline 257 ng/L (0-10)
--- NOTE | 2021-05-29 13:45 | PC.NURSE ---
Critical K+ 1.5, Lactic 4.2, Troponin [address] Lemons.
[2021-05-29 13:46] LABS: Potassium 1.5 mmol/L (3.5-5.1)
[2021-05-29 13:47] LABS: Lactic Sepsis W/Reflex 4.2 mmol/L (0.5-2.2)
[2021-05-29 14:05] LABS: Eosinophils 0 %; Lymphocytes 3 %; Segmented Neutrophils 89 %; Total Cells Counted 100 (0-100)
[2021-05-29 14:06] LABS: Anisocytosis Trace; Platelet Estimate Normal (Normal); Poikilocytosis Trace; Polychromasia 1+
[2021-05-29 14:07] LABS: Ovalocytes Trace
--- NOTE | 2021-05-29 14:15 | PC.PHAR ---
PTS DAUGHTER VERIFIED PTS MEDICATIONS-PTS DAUGHTER STATES THE AMLODIPINE 5MG DAILY LAST FILLED 04/17/21,BUMETANIDE 4MG BID LAST FILLED 03/31/21 30D/S,IRON 325MG DAILY,LASIX 80MG BID LAST FILLED 04/20/21 ,METOLAZONE 5MG DAILY LAST FILLED 04/01/21 30D/S, KCL 10MEQ DAILY FILLED ON 04/16/21 90D/S, SERTRALING 25MG 12.5MG DAILY LAST FILLED 04/16/21 90D/S AND TRAZODONE 50MG HS PRN LAST FILLED ON 03/13/21 90D/S WERE ALL DCED-NOTES ARE MADE IN THE PHARMACY COMMENTS
[2021-05-29 14:17] LABS: ABG PCO2 36.5 mmHg (35-45); ABG PH Result 7.49 (7.35-7.45); Alveolar-Arterial Oxygen Gradi 15.6 mmHg (5-10); Arterial Blood Gas Hematocrit 34.3 % (37-47); Blood Gas Operator Identificat GD; Blood Gas Sample Site Brachial, left; Blood Gas Sample Type Arterial; Carboxyhemoglobin 0.6 %THgb (0.4-20.1); HCO3 ABG 27.5 mmol/L (22-26); HGB O2 Sat 91.9 % (95-100); Ionized Calcium Level - ABG 1.4 mmol/L (1.1-1.4); Methemoglobin 0.7 % (0.4-1.5); Oxygen Device NC; Oxygen Saturation ABG 93.1; PO2 ABG 59.5 mmHg (80.0-100.0); Potassium Level - ABG 1.7 mmol/L (3.5-5.0); Total Hemoglobin 11.2 g/dL (12-16)
[2021-05-29] MEDS: cefTRIAXone 2,000 MG in sodium chloride 0.9% (plus) 50 ML 100 MG IV (14:37)
[2021-05-29] MEDS: lidocaine 1% 5 ML in potassium chloride premix 100 ML 25 ML IV ×2 (14:53→18:24)
--- NOTE | 2021-05-29 14:55 | ECG_ITS ---
[facility] Test Date: 2021-05-29 Pat Name: Marie Bryant Department: Room: ICU04 Gender: Female Emergency Management Consultant: : 1940 Requested By: Tera Platt Order Number: [id number] Daljit MD: Eusebio Rojo M.D. Measurements Intervals [place] Rate: 91 P: [place]: QRS: -62 QRSD: 122 T: 157 QT: 263 QTc: 324 Interpretive Statements ATRIAL FIBRILLATION WITH ABERRANT CONDUCTION OR VENTRICULAR PREMATURE COMPLEXES INDETERMINATE AXIS INFERIOR MYOCARDIAL INFARCTION , PROBABLY OLD [40+ ms Q WAVE AND/OR ST/T ABNORMALITY IN II/aVF] ST DEPRESSION, CONSIDER SUBENDOCARDIAL INJURY [0.1+ mV ST DEPRESSION] Compared to ECG 05/29/2021 13:02:59 Ventricular premature complex(es) now present Aberrant conduction of supraventricular beat(s) now present ST (T wave) deviation now present Intraventricular conduction delay no longer present Myocardial infarct finding still present Electronically Signed On 05-30-2021 4:51:37 GLAZE CARRIER by Eusebio Rojo M.D. [id number]
[2021-05-29 15:02] LABS: Reflex Lactate Order REFLEX LACTIC ORDERD
[2021-05-29 15:11] LABS: Troponin 5 2HR 238.2 ng/L (0-10); Troponin 5 2HR Delta -18.8 ABS# (0-10)
--- NOTE | 2021-05-29 16:09 | P.HP_ITS ---
Providers/Chief Complaint Primary Care Provider: Karuna Curtis MD Chief Complaint: DECREASED RESPONSIVENESS/ DECREASED BP History of Present Illness Marie Bryant is a 80 year old female with past medical history of CABG x4, atrial fibrillation on Eliquis, peritoneal dialysis, diabetes mellitus, COPD, chronic congestive heart failure, former smoker who presented to the hospital today via EMS for complaint of low blood pressure. Patient's daughter and are present at bedside. They state patient lives at home with and the daughter. She is on home dialysis. Over the last 1 month her blood pressure has been running on the lower side. She has been taking to the ER at [place] 3 to 4 weeks ago at which time she was also complaining of calf pain. Ultrasound ruled out DVT. At baseline she is wheelchair-bound. She also has a Yaquelin lift and hospital bed. The daughter states that 4 years ago ramila arboleda had pneumonia and ended up on the ventilator and after that she was extubated and sent to a custodial. She had severe deconditioning and ever since then has been wheelchair-bound. When she went to [place] 3 to 4 weeks ago for low blood pressure midodrine was added at 5 3 times daily. Recently they were asked to increase to 10 3 times daily as per dialysis nurse but did not increase the dose yet. Prior to that blood pressures have been fine. Patient's daughter states that she has been running 80s over 50s despite midodrine. She does have an appointment upcoming with Dr. Srivastava who is her brokerage coordinator on June 17 and they were going to have records requested from [facility] to be sent to her. Patient follows with Dr. Aburto in [place] for nephrology. Patient's daughter also states that lately patient has been eating much and has loss of appetite. She is completely anuric. She denies any chest pain, shortness of breath, abdominal pain, constipation, diarrhea. Has been afebrile. Today when her routine blood pressure was being checked the monitor was unable to read and read the word low. Later they were able to get a value which was 65 systolic. Then they had the patient lay in bed. And patient was staring at her daughter but was still able to talk. Speech was not garbled. When seen patient talks in a very soft voice and is alert oriented x3 and knows what is going on. She does appear quite weak however. Patient does have left upper extremity weakness which the daughter says they have noticed about 2 weeks ago. Patient used to be on furosemide, amlodipine, metolazone in the past but they were discontinued since she was not making any urine and blood pressure was on lower side. She is also on amiodarone and Eliquis as per the daughter she was fatal her medications this morning and she was able to swallow them okay. Patient is at her home medications are 5 units of insulin twice a day, Lexapro 20, metoprolol tartrate 12.5 twice daily, MiraLAX, pantoprazole 20, simvastatin, tizanidine, tramadol, trazodone, midodrine 5 mg 3 times daily. ED course: On arrival to ED blood pressure 74/40, respiratory 26, pulse rate 66, temperature 97.8, pulse ox 100%. Patient did talk in him muffled whispering voice but able to answer all questions appropriately. CT head was done on arrival which showed low-attenuation change in right FINANCIAL EXAMINER territory expanding to cortex involves posterior right temporal lobe measuring 3.5 x 3.5 cm compatible with subacute FINANCIAL EXAMINER territory infarct, mild small vessel changes moderate parenchymal volume loss also appreciated. Chest x-ray shows cardiomegaly with prior CABG, moderate to advanced chronic emphysematous changes. No acute pulmonary infiltrates. Review of Systems General: Reports: 10 or more systems reviewed and unremarkable except in HPI and below Medications/Allergies Home Medications Medication Instructions Recorded Confirmed Last Taken Type amiodarone 200 mg tablet 200 mg PO QAM 09/09/20 05/29/21 05/29/21 10:00 History apixaban 2.5 mg tablet 2.5 mg PO BID 09/09/20 05/29/21 05/29/21 10:00 History cholecalciferol (vitamin D3) 25 25 mcg PO DAILY 09/09/20 05/29/21 09/23/20 History mcg (1,000 unit) capsule mirtazapine 30 mg tablet 30 mg PO BEDTIME 09/09/20 05/29/21 Unknown History pantoprazole 20 mg tablet,delayed 20 mg PO DAILY@12 09/09/20 05/29/21 05/28/21 History release simvastatin 20 mg tablet 20 mg PO BEDTIME 09/09/20 05/29/21 09/23/20 History tramadol 50 mg tablet 50 mg PO Q6H PRN 09/09/20 05/29/21 09/23/20 History calcium acetate 667 mg PO TID 10/24/20 05/29/21 05/29/21 10:00 History docusate sodium 100 mg tablet 100 - 200 mg PO BEDTIME tab 04/14/21 05/29/21 Unknown History escitalopram oxalate 20 mg tablet 20 mg PO DAILY 04/14/21 05/29/21 Unknown History tizanidine 2 mg capsule 2 mg PO DAILY PRN cap 04/14/21 05/29/21 Unknown History vit B,C-folic ac 800 mcg-zinc 12.5 1 tab PO DAILY@12 04/14/21 05/29/21 05/28/21 History mg-selen-D3 2,000 unit-vit E tablet gentamicin See Rx Instructions .ROUTE .COMPLEX 05/29/21 05/29/21 Unknown History insulin aspart U-100 [Novolog See Rx Instructions .ROUTE .COMPLEX 05/29/21 05/29/21 05/29/21 History Flexpen U-100 Insulin] 9 UNITS ipratropium-albuterol 3 ml INHALATION .2-4 TIMES A DAY 05/29/21 05/29/21 Unknown History metoprolol tartrate 12.5 mg PO BID 05/29/21 05/29/21 05/29/21 10:00 History midodrine 5 mg PO TID 05/29/21 05/29/21 05/29/21 10:00 History 10 MG olopatadine [Pataday Twice Daily 1 drp OPHTHALMIC (EYE) BID 05/29/21 05/29/21 Unknown History Relief] polyethylene glycol 3350 [Miralax] 17 g PO DAILY PRN 05/29/21 05/29/21 Unknown History Allergies Allergy/AdvReac Type Severity Reaction Status Date / Time No Known Allergies Allergy Verified 05/29/21 14:10 PFSH Acute PFSH: Medical History Anemia Atrial fibrillation CAD (coronary artery disease) Chronic kidney disease Diabetes mellitus GERD (gastroesophageal reflux disease) HTN (hypertension) Hyperlipidemia Surgical History Hx of tonsillectomy Peritoneal dialysis catheter in situ (09/24/20) S/P CABG x 4 S/P coronary artery stent placement Status post colonoscopy Status post right breast lumpectomy Family History (Updated 05/30/21 @ 12:20 by Nancy Malave MD) Other Medical history non-contributory Social History Smoking and tobacco status: former smoker Vitals/I&O/Wt Last Vital Signs Temp 97.8 F 05/29/21 12:54 Pulse 66 05/29/21 12:54 Resp 26 H 05/29/21 12:54 BP 74/40 05/29/21 12:54 Pulse Ox 100 05/29/21 12:54 Weight last 48 hrs Weight 90.718 kg Physical Exam Narrative: EXAM NARRATIVE: General: Alert oriented x3, patient seen laying in bed with daughter and present bedside, appearing very weak. She whispers but does not have garbled speech. HEENT: Normocephalic, atraumatic, EOMI, breathing 2 L nasal cannula saturating 100%. Cardio: Irregularly irregular rhythm, normal S1-S2, no murmurs rubs gallops, unable to assess JVD due to patient's position. Blood pressure 101/47, on Levophed right now 6 mics. Respiratory: Clear to auscultation bilaterally, no wheezes no rhonchi appreciated, overall lung sounds diminished. GI: Abdomen soft, nontender, nondistended, bowel sounds + Behavior: Appropriate and cooperative Extremities: no edema, no cyanosis, does have a bruise on right garces. Neuro: Right pupil dilated, left pupil appearing normal. Both pupils do accommodate, right pupil does not react to light. Extraocular eye movements intact. Cranial nerve XII okay. Able to shrug shoulders and move head side to side, peripheral vision loss superior quadrantanopsia present on right and left. Left upper extremity strength 3 out of 5, right upper extremity strength 5 out of 5, sensation intact upper and lower extremity equally 5 out of 5. Able to wiggle toes. Unable to lift both legs off the bed. Strength 1-5 bilateral lower extremities. Apart from right pupil dilation daughter states rest of her neuro exam is consistent with baseline. Patient unable to walk at baseline and is a Yaquelin lift and wheelchair bound. Gait not assessed. [id number] not done. Data : 05/30/21 02:47 05/30/21 02:47 Micro: Microbiology 05/29/21 14:32 Blood Culture - Preliminary Blood SPECIMEN COLLECTED 05/29/21 13:12 Blood Culture - Preliminary Blood SPECIMEN COLLECTED A&P Assessment and plan (1) CVA (cerebral vascular accident): Status: Acute (2) Bedbound: Status: Acute (3) Hypotension: Status: Acute (4) End stage renal failure on dialysis: Status: Acute (5) GERD (gastroesophageal reflux disease): Status: Acute Qualifiers: Esophagitis presence: esophagitis presence not specified Qualified Code(s): K21.9 - Gastro-esophageal reflux disease without esophagitis (6) Chronic kidney disease: Status: Acute Qualifiers: Chronic kidney disease stage: stage 4 (severe) Qualified Code(s): N18.4 - Chronic kidney disease, stage 4 (severe) Additional A&P Information Subacute CVA Pupil asymmetrical Requested CT head and neck CT head consistent with FINANCIAL EXAMINER territory stroke Patient is bedbound, family has a Yaquelin lift She is able to swallow pills, Monotonous voice resting tremors History of Parkinson's? Family at the bedside Not a candidate TPA as per my discussion with the ER physician who discussed this case with Dr. Richards at the time of admission Last well-known time unknown Hypotension: Start albumin regimen Check cortisol and TSH Started vasopressors Check echo Troponin leak: No active chest pain, troponin trended down Echo requested Follow-up on serial troponin EKG NSTEMI versus type II DC secondary to underlying chronic kidney disease Patient is bedbound, Peritoneal dialysis dependent, nephro consulted Renal dialysis diet Full code DVT prophylaxis covered with Eliquis Attestations Medical Necessity Statement*: More than 2 midnights anticipated Time Spent in Patient Care: Greater than 35 minutes Coding Level of Care Code Acute Travel Information Center Supervisor for Chg Fwd Diagnoses CVA (cerebral vascular accident) I63.9 Bedbound Z74.01 Hypotension I95.9 End stage renal failure on dialysis N18.6; Z99.2 GERD (gastroesophageal reflux disease) K21.9 Esophagitis presence: esophagitis presence not specified Chronic kidney disease N18.4 Chronic kidney disease stage: stage 4 (severe)
[2021-05-29 16:14] LABS: Lactic Acid level (Lactate) 2.9 mmol/L (0.5-2.2)
--- NOTE | 2021-05-29 17:00 | PC.NURSE ---
ATTEMPTED REPORT NURSE UNAVAILABLE.
[2021-05-29] MEDS: magnesium sulfate premix 2 GM/50 ML PIGGYBACK IV (17:06)
--- NOTE | 2021-05-29 17:27 | PC.NURSE ---
VS LABELED AND PLACED IN CHART FROM 1300 TO 1745
--- NOTE | 2021-05-29 17:40 | P.CONIM_ITS ---
Providers/Reason For Consult Consulting Physician/Specialty*: Nephro Reason for Consult*: ESRD eval Attending Physician: Nancy Malave MD Primary Care Provider: Karuna Curtis MD History of Present Illness History of Present Illness Thank you for consultation, today had the pleasure reviewing this 80-year-old female for evaluation and management of end-stage kidney disease. She is currently on PD. Daughter reports that she is on PD for 10 hours at night, 4 exchanges of 1950 mL with a day dwell. She was using a combination of green/red bags, switching to green/green as her blood pressure came down. She now presents with low blood pressure and altered mental status. She was also found to have leukocytosis. PD fluid was sent for analysis with white blood cells. No other obvious infectious source at this time. Concern for stroke is noted. Admission CT scan of the head demonstrated subacute ACCOUNTS PAYABLE COORDINATOR territory infarction. CTA of the head neck demonstrated right internal carotid artery with severe stenosis. She currently remains on Levophed at 8 mics per minute also receiving intravenous fluid overnight. Currently no indication of fluid overload or uremia. She did have critically low potassium on admission. Review of Systems General: Reports: ROS unobtainable due to mental status Meds/Allergies Home Medications and Allergies Home Medications Medication Instructions Recorded Confirmed Last Taken Type amiodarone 200 mg tablet 200 mg PO QAM 09/09/20 05/29/21 05/29/21 10:00 History apixaban 2.5 mg tablet 2.5 mg PO BID 09/09/20 05/29/21 05/29/21 10:00 History cholecalciferol (vitamin D3) 25 25 mcg PO DAILY 09/09/20 05/29/21 09/23/20 History mcg (1,000 unit) capsule mirtazapine 30 mg tablet 30 mg PO BEDTIME 09/09/20 05/29/21 Unknown History pantoprazole 20 mg tablet,delayed 20 mg PO DAILY@12 09/09/20 05/29/21 05/28/21 History release simvastatin 20 mg tablet 20 mg PO BEDTIME 09/09/20 05/29/21 09/23/20 History tramadol 50 mg tablet 50 mg PO Q6H PRN 09/09/20 05/29/21 09/23/20 History calcium acetate 667 mg PO TID 10/24/20 05/29/21 05/29/21 10:00 History docusate sodium 100 mg tablet 100 - 200 mg PO BEDTIME tab 04/14/21 05/29/21 Unknown History escitalopram oxalate 20 mg tablet 20 mg PO DAILY 04/14/21 05/29/21 Unknown History tizanidine 2 mg capsule 2 mg PO DAILY PRN cap 04/14/21 05/29/21 Unknown History vit B,C-folic ac 800 mcg-zinc 12.5 1 tab PO DAILY@12 04/14/21 05/29/21 05/28/21 History mg-selen-D3 2,000 unit-vit E tablet gentamicin See Rx Instructions .ROUTE .COMPLEX 05/29/21 05/29/21 Unknown History insulin aspart U-100 [Novolog See Rx Instructions .ROUTE .COMPLEX 05/29/21 05/29/21 05/29/21 History Flexpen U-100 Insulin] 9 UNITS ipratropium-albuterol 3 ml INHALATION .2-4 TIMES A DAY 05/29/21 05/29/21 Unknown History metoprolol tartrate 12.5 mg PO BID 05/29/21 05/29/21 05/29/21 10:00 History midodrine 5 mg PO TID 05/29/21 05/29/21 05/29/21 10:00 History 10 MG olopatadine [Pataday Twice Daily 1 drp OPHTHALMIC (EYE) BID 05/29/21 05/29/21 Unknown History Relief] polyethylene glycol 3350 [Miralax] 17 g PO DAILY PRN 05/29/21 05/29/21 Unknown History Allergies Allergy/AdvReac Type Severity Reaction Status Date / Time No Known Allergies Allergy Verified 05/29/21 14:10 Current Medications Current Medications Generic Name Dose Route Start Last Admin Trade Name Freq PRN Reason Stop Dose Admin Apixaban 2.5 mg 05/29/21 18:00 05/30/21 09:36 Apixaban 5 Mg Tablet PO 2.5 mg BID BLADIMIR Administration Atorvastatin Calcium 20 mg 05/29/21 21:00 05/29/21 21:56 Atorvastatin 40 Mg Tablet PO Not Given BEDTIME BLADIIMR Calcium Acetate 667 mg 05/29/21 21:00 05/30/21 09:36 Calcium Acetate 667 Mg Capsule PO 667 mg TID BLADIMIR Administration Clopidogrel Bisulfate 75 mg 05/30/21 09:00 05/30/21 09:36 Clopidogrel 75 Mg Tablet PO 75 mg DAILY BLADIMIR Administration Norepinephrine Bitartrate 4 mg 254 mls @ 0 mls/hr 05/29/21 14:15 05/30/21 06:06 / Dextrose IV 6 mcg/min .Q0M BLADIMIR 22.86 mls/hr Titration Protocol Per Protocol Potassium Chloride/Dextrose/Sod Cl 40 meq in 1,000 mls @ 100 mls/hr 05/29/21 18:45 05/30/21 06:35 Dextrose 5%-Ns + Kcl 40 IV Infused .Q10H BLADIMIR Infusion Insulin Human Lispro 0 unit 05/29/21 18:00 05/30/21 07:56 Insulin Lispro 100 Unit/1 Ml SUBCUT 8 unit TIDWM BLADIMIR Administration Protocol Midodrine 5 mg 05/29/21 21:00 05/30/21 09:36 Midodrine 5 Mg Tablet PO 5 mg TID BLADIMIR Administration Vitamin D 1,000 unit 05/30/21 09:00 05/30/21 09:37 Cholecalciferol (Vitamin D3) 1,000 Unit Tablet PO 1,000 unit DAILY BLADIMIR Administration PFSH Acute PFSH: Medical History Anemia Atrial fibrillation CAD (coronary artery disease) Chronic kidney disease Diabetes mellitus GERD (gastroesophageal reflux disease) HTN (hypertension) Hyperlipidemia Surgical History Hx of tonsillectomy Peritoneal dialysis catheter in situ (09/24/20) S/P CABG x 4 S/P coronary artery stent placement Status post colonoscopy Status post right breast lumpectomy Social History Smoking and tobacco status: former smoker Vitals/I&O/Wt Last Vital Signs Temp 97.8 F 05/29/21 19:09 Pulse 96 05/30/21 07:00 Resp 24 H 05/30/21 07:00 BP 98/41 05/30/21 07:00 Pulse Ox 96 05/30/21 07:00 05/29/21 05/30/21 05/30/21 22:59 06:59 14:59 Intake Total 601.299 / 148.780 0438.241 / 2078.540 100 / 100 Output Total 0 / 0 0 / 0 Balance 601.299 / 169.592 9766.241 / 2078.540 100 / 100 Weight last 48 hrs Weight 85.457 kg Weight 90.718 kg Data Micro: Micro: Microbiology 05/29/21 15:26 Gram Stain - Final Ankle - Abdominal 05/29/21 14:32 Blood Culture - Pr eliminary Blood SPECIMEN [facility] 05/29/21 13:12 Blood Culture - Pr eliminary Blood SPECIMEN [facility] A&P Additional A&P Information 1. ESRD To continue peritoneal dialysis Discussed with family, tomorrow will initiate PD with 10 on the cycler with 4 exchanges of 1.5% (yellow back), 1950 mL per exchange. Empty during the day. Dose medication for GFR less than 15 on PD Strict I's and O's 2. Altered mental status CT with findings of subacute ACCOUNTS PAYABLE COORDINATOR territory CVA Leukocytosis noted with unclear source of infection, will rule out UTI Hemodynamic lability also noted I doubt uremia is playing a role. 3. Chemistry Severe hypokalemia on admission being replaced. Magnesium being replaced other chemistry looks mildly aberrant but noncritical. 4. Hemodynamics Currently requiring Levophed, continue IV hydration. Work-up for sepsis noted. Cardiology with echocardiogram appreciated. Thank you for consultation, it is a pleasure to follow these cases with you Exam and interview performed with aid of bedside RN using telemedicine Time spent 20 min inc > 50% of time in face to face counseling Gregory Bear MD [facility] [phone] Coding Level of Care Code Acute Club Car Attendant for Yulia Vicente
[2021-05-29 18:01] LABS: Chol HDL Ratio 2.52 mg/dL (0.0-4.40); Cholesterol 126 mg/dL (0-200); HDL Cholesterol 50 mg/dL (60-100); LDL Cholesterol Calculated 45 mg/dL (50-129); Triglycerides 155 mg/dL (0-150); VLDL Cholestrol Calculation 31 mg/dL (0-30)
[2021-05-29] MEDS: albumin 12.5 GM/250 ML VIAL IV (18:23)
--- NOTE | 2021-05-29 18:47 | CTR_ITS ---
PROCEDURE INFORMATION: Exam: CT Angiography Head With Contrast, Arteriography Exam date and time: 05/29/2021 6:47 PM Age: 80 years old Clinical indication: Patient HX: Patient found to have subacute RT temporal county records management officer infarct earlier today. Best positioning due to PT habitus. Seperate reformations of head sent due to severe rotation of patient's head. ; Additional info: Dilated pupil, subacute atroke TECHNIQUE: Imaging protocol: Computed tomography angiography of the head with contrast. Exam focused on the arteries. 3D rendering (Not supervised by radiologist): MIP and/or 3D reconstructed images were created by the technologist. Radiation optimization: All CT scans at this facility use at least one of these dose optimization techniques: automated exposure control; mA and/or kV adjustment per patient size (includes targeted exams where dose is matched to clinical indication); or iterative reconstruction. Contrast material: VISI 320; Contrast volume: 95 ml; Contrast route: INTRAVENOUS (IV); COMPARISON: CT head wo con* [id number] 05/29/2021 1:24 PM RADIATION DOSE METRICS: Total DLP (mGy-cm): 1787.97 FINDINGS: ANTERIOR CIRCULATION: Right internal carotid artery: There is calcified plaque in the right carotid siphon with moderate stenosis. No aneurysm. Right middle cerebral artery: Unremarkable. No occlusion or significant stenosis. No aneurysm. Right anterior cerebral artery: Unremarkable. No occlusion or significant stenosis. No aneurysm. Left internal carotid artery: There is calcified plaque in the left carotid siphon with moderate stenosis. No aneurysm. Left middle cerebral artery: Unremarkable. No occlusion or significant stenosis. No aneurysm. Left anterior cerebral artery: Unremarkable. No occlusion or significant stenosis. No aneurysm. POSTERIOR CIRCULATION: Right vertebral artery: Unremarkable. No occlusion or significant stenosis. No aneurysm. Left vertebral artery: Unremarkable. No occlusion or significant stenosis. No aneurysm. Basilar artery: Unremarkable. No occlusion or significant stenosis. No aneurysm. Right posterior cerebral artery: Unremarkable. No occlusion or significant stenosis. No aneurysm. No occlusion seen to correspond to right occipital infarct on CT. Left posterior cerebral artery: Unremarkable. No occlusion or significant stenosis. No aneurysm. Brain: Series 202, image 74, small left frontal calcification with adjacent enhancement. This measures 5 mm. PROCEDURE INFORMATION: Exam: CT Angiography Neck With Contrast Exam date and time: 05/29/2021 6:47 PM Age: 80 years old Clinical indication: Patient HX: Patient found to have subacute RT temporal county records management officer infarct earlier today. Best positioning due to PT habitus. Seperate reformations of head sent due to severe rotation of patient's head. ; Additional info: Dilated pupil, subacute atroke TECHNIQUE: Imaging protocol: Computed tomography angiography of the neck with contrast. 3D rendering (Not supervised by radiologist): MIP and/or 3D reconstructed images were created by the technologist. Radiation optimization: All CT scans at this facility use at least one of these dose optimization techniques: automated exposure control; mA and/or kV adjustment per patient size (includes targeted exams where dose is matched to clinical indication); or iterative reconstruction. Contrast material: VISI 320; Contrast volume: 95 ml; Contrast route: INTRAVENOUS (IV); COMPARISON: CT head wo con* [id number] 05/29/2021 1:24 PM RADIATION DOSE METRICS: Total DLP (mGy-cm): 1787.97 FINDINGS: Right common carotid artery: No stenosis. No dissection or occlusion. Right internal carotid artery: There is calcified plaque in the proximal right internal carotid artery resulting in severe, greater than 80 %, stenosis. Right external carotid artery: No occlusion or stenosis of the origin. Left common carotid artery: There is calcified plaque in the proximal left common carotid artery with mild, less than 40%, stenosis. Left internal carotid artery: There is calcified plaque in the proximal left internal carotid artery resulting in mild, less than 50%, stenosis. Left external carotid artery: No occlusion or stenosis of the origin. Right vertebral artery: There is calcified plaque in the proximal V1 segment of the right vertebral artery resulting in severe stenosis. Left vertebral artery: There is calcified plaque at the origin of the left vertebral artery with mild stenosis. No distal stenosis. No dissection Soft tissues: Normal. No significant soft tissue swelling. Bones/joints: No acute fracture. Pleural spaces: Partly visible right pleural effusion. CT/CT angio headneck* [id number] IMPRESSION: 1. Calcified atherosclerotic plaque the carotid siphons with moderate stenosis bilaterally. 2. No intracranial large vessel occlusion. Specifically, no right WAD BLANKING PRESS ADJUSTER occlusion. 3. 5 mm focus of enhancement associated with left frontal calcification. This could represent a cavernous malformation. Recommend non emergent brain MRI. IMPRESSION: 1. 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 Mild left carotid stenosis. 2. Severe proximal right vertebral artery stenosis. Mild proximal left vertebral artery stenosis. REFERENCES: NASCET CRITERIA. The degree of internal carotid artery stenosis is based on NASCET criteria. Normal is no stenosis. Mild is less than 50% stenosis. Moderate is 50-69% stenosis. Severe is 70% to 99% stenosis. Total occlusion is no detectable patent lumen.
--- NOTE | 2021-05-29 18:55 | ECG_ITS ---
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 Measurements Intervals [place] Rate: 91 P: [place]: QRS: 116 QRSD: 121 T: 120 QT: 380 QTc: 469 Interpretive Statements ATRIAL FIBRILLATION WITH ABERRANT CONDUCTION OR VENTRICULAR PREMATURE COMPLEXES POSSIBLE RIGHT VENTRICULAR HYPERTROPHY [SOME/ALL OF: PROMINENT R IN V1, LATE TRANSITION, RAD, PAU, SSS] ST DEVIATION AND MODERATE T-WAVE ABNORMALITY, CONSIDER ANTERIOR ISCHEMIA [-0.1+ mV T-WAVE IN V3/V4] Compared to ECG 05/29/2021 17:53:45 T-wave abnormality now present Possible ischemia now present Indeterminate axis no longer present Myocardial infarct finding no longer present ST (T wave) deviation no longer present Electronically Signed On 05-30-2021 4:50:53 REHAB SPECIALIST by Eusebio Rojo M.D. [id number]
[2021-05-29 19:06] LABS: Troponin 5 6HR Delta -19.2 ng/L (0-12)
[2021-05-29 19:08] LABS: Troponin 5 6HR 237.8 ng/L (0-10)
[2021-05-29] MEDS: dextrose 5%-ns + KCl 40 40 MEQ/1,000 ML BAG 100 MEQ IV (19:54)
[2021-05-29] MEDS: cefepime 2,000 MG in sodium chloride 0.9% (plus) 50 ML 100 MG IV (20:19)
[2021-05-29 20:36] LABS: Glucose Point of Care 161 mg/dL (70-110)
[2021-05-29] MEDS: iodixanol 320 mg/mL 100mL Btl IV (21:29)
[2021-05-29 22:17] LABS: Glucose Point of Care 195 mg/dL (70-110)
[2021-05-29] MEDS: insulin lispro 100 unit/1 mL SUBCUT (23:02)
[2021-05-29] MEDS: potassium chloride premix 100 ML 25 MEQ IV (23:03)
[2021-05-30] VITALS (48 sets, daily range): BP systolic 78–120; BP diastolic 41–97; PULSE 76–143; RESP 15–37; O2SAT 92–99
[2021-05-30 04:00] LABS: Basophils # 0.1 10^3/uL (0.0-0.1); Basophils % 0.3 %; Eosinophils # 0.1 10^3/uL (0.0-0.8); Eosinophils % 0.6 %; Hematocrit 31.5 % (37.0-47.0); Hemoglobin 10.5 g/dL (11.5-15.3); Lymphocytes # 1.2 10^3/uL (0.8-4.8); Lymphocytes % 8.3 %; Mean Corpuscular HGB Conc 33.3 g/dL (30.0-36.0); Mean Platelet Volume 10.7 fL (7.4-10.4); Monocytes % 6.9 %; Neutrophils # 11.17 10^3/uL (1.8-7.7); Neutrophils % 76.8 %; Nucleated Red Blood Cells # 0.3 /100WBC; Platelet Count 140 10^3/cmm (130-400); White Blood Count 14.5 10^3/uL (4.0-10.0)
[2021-05-30 04:27] LABS: Alanine Aminotransferase 18 U/L (0-33); Albumin Level 3.2 g/dL (3.5-5.2); Alkaline Phosphatase 124 IU/L (35-105); Anion Gap 19.4 (5-19); Aspartate Amino Transferase 23 U/L (0-32); Blood Urea Nitrogen 37 mg/dL (8-23); C Reactive Protein 46.8 mg/L (0.0-4.9); Calcium 9.4 mg/dL (8.5-10.5); Carbon Dioxide 24 mmol/L (22-29); Chloride 94 mmol/L (98-107); Globulin 2.2 g/dL (1.3-4.6); Glucose 171 mg/dL (65-115); Magnesium 1.7 mg/dL (1.7-2.3); Osmolality Calculated 291 mOsm/kg (285-295); Potassium 3.4 mmol/L (3.5-5.1); Sodium 134 mmol/L (136-145); Total Bilirubin 0.4 mg/dL (0.15-1.2); Total Protein 5.4 g/dL (6.6-8.7)
[2021-05-30 05:40] LABS: Slide Review Slide Review Perform
[2021-05-30 07:24] LABS: Glucose Point of Care 247 mg/dL (70-110)
[2021-05-30] MEDS: insulin lispro 100 unit/1 mL SUBCUT ×2 (07:56→17:42)
[2021-05-30 08:50] LABS: Thyroid Stimulating Hormone 0.72 uIU/mL (0.27-4.20)
[2021-05-30 09:27] LABS: Cortisol Random 25.46 ug/dL (2.47-19.5)
[2021-05-30] MEDS: apixaban 5 mg Tablet 2.5 MG PO (09:36)
[2021-05-30] MEDS: midodrine 5 mg TABLET PO ×3 (09:36→20:40)
[2021-05-30] MEDS: calcium acetate 667 mg Capsule PO ×3 (09:36→20:39)
[2021-05-30] MEDS: clopidogrel 75 mg Tablet PO (09:36)
[2021-05-30] MEDS: cholecalciferol (vitamin D3) 1,000 unit Tablet 1000 UNIT PO (09:37)
--- NOTE | 2021-05-30 10:39 | PM.CONSULT ---
Providers/Reason For Consult Consulting Physician/Specialty*: Nephrology Reason for Consult*: ESRD mgmt Attending Physician: Nancy Malave MD Primary Care Provider: Karuna Curtis MD History of Present Illness History of Present Illness Thank you for consultation, today had the pleasure reviewing this 80-year-old female for evaluation and management of end-stage kidney disease. She is currently on PD. Daughter reports that she is on PD for 10 hours at night, 4 exchanges of 1950 mL with a day dwell. She was using a combination of green/red bags, switching to green/green as her blood pressure came down. She now presents with low blood pressure and altered mental status. She was also found to have leukocytosis. PD fluid was sent for analysis with white blood cells. No other obvious infectious source at this time. Concern for stroke is noted. Admission CT scan of the head demonstrated subacute RECIPROCATING DRILL OPERATOR territory infarction. CTA of the head neck demonstrated right internal carotid artery with severe stenosis. She currently remains on Levophed at 8 mics per minute also receiving intravenous fluid overnight. Currently no indication of fluid overload or uremia. She did have critically low potassium on admission. Review of Systems General: Reports: ROS unobtainable due to mental status Meds/Allergies Home Medications and Allergies Home Medications Medication Instructions Recorded Confirmed Last Taken Type amiodarone 200 mg tablet 200 mg PO QAM 09/09/20 05/29/21 05/29/21 10:00 History apixaban 2.5 mg tablet 2.5 mg PO BID 09/09/20 05/29/21 05/29/21 10:00 History cholecalciferol (vitamin D3) 25 25 mcg PO DAILY 09/09/20 05/29/21 09/23/20 History mcg (1,000 unit) capsule mirtazapine 30 mg tablet 30 mg PO BEDTIME 09/09/20 05/29/21 Unknown History pantoprazole 20 mg tablet,delayed 20 mg PO DAILY@12 09/09/20 05/29/21 05/28/21 History release simvastatin 20 mg tablet 20 mg PO BEDTIME 09/09/20 05/29/21 09/23/20 History tramadol 50 mg tablet 50 mg PO Q6H PRN 09/09/20 05/29/21 09/23/20 History calcium acetate 667 mg PO TID 10/24/20 05/29/21 05/29/21 10:00 History docusate sodium 100 mg tablet 100 - 200 mg PO BEDTIME tab 04/14/21 05/29/21 Unknown History escitalopram oxalate 20 mg tablet 20 mg PO DAILY 04/14/21 05/29/21 Unknown History tizanidine 2 mg capsule 2 mg PO DAILY PRN cap 04/14/21 05/29/21 Unknown History vit B,C-folic ac 800 mcg-zinc 12.5 1 tab PO DAILY@12 04/14/21 05/29/21 05/28/21 History mg-selen-D3 2,000 unit-vit E tablet gentamicin See Rx Instructions .ROUTE .COMPLEX 05/29/21 05/29/21 Unknown History insulin aspart U-100 [Novolog See Rx Instructions .ROUTE .COMPLEX 05/29/21 05/29/21 05/29/21 History Flexpen U-100 Insulin] 9 UNITS ipratropium-albuterol 3 ml INHALATION .2-4 TIMES A DAY 05/29/21 05/29/21 Unknown History metoprolol tartrate 12.5 mg PO BID 05/29/21 05/29/21 05/29/21 10:00 History midodrine 5 mg PO TID 05/29/21 05/29/21 05/29/21 10:00 History 10 MG olopatadine [Pataday Twice Daily 1 drp OPHTHALMIC (EYE) BID 05/29/21 05/29/21 Unknown History Relief] polyethylene glycol 3350 [Miralax] 17 g PO DAILY PRN 05/29/21 05/29/21 Unknown History Allergies Allergy/AdvReac Type Severity Reaction Status Date / Time No Known Allergies Allergy Verified 05/29/21 14:10 Current Medications Current Medications Generic Name Dose Route Start Last Admin Trade Name Freq PRN Reason Stop Dose Admin Apixaban 2.5 mg 05/29/21 18:00 05/30/21 09:36 Apixaban 5 Mg Tablet PO 2.5 mg BID BLADIMIR Administration Atorvastatin Calcium 20 mg 05/29/21 21:00 05/29/21 21:56 Atorvastatin 40 Mg Tablet PO Not Given BEDTIME BLADIMIR Calcium Acetate 667 mg 05/29/21 21:00 05/30/21 09:36 Calcium Acetate 667 Mg Capsule PO 667 mg TID BLADIMIR Administration Clopidogrel Bisulfate 75 mg 05/30/21 09:00 05/30/21 09:36 Clopidogrel 75 Mg Tablet PO 75 mg DAILY BLADIMIR Administration Norepinephrine Bitartrate 4 mg 254 mls @ 0 mls/hr 05/29/21 14:15 05/30/21 06:06 / Dextrose IV 6 mcg/min .Q0M BLADIMIR 22.86 mls/hr Titration Protocol Per Protocol Potassium Chloride/Dextrose/Sod Cl 40 meq in 1,000 mls @ 100 mls/hr 05/29/21 18:45 05/30/21 06:35 Dextrose 5%-Ns + Kcl 40 IV Infused .Q10H BLADIMIR Infusion Insulin Human Lispro 0 unit 05/29/21 18:00 05/30/21 07:56 Insulin Lispro 100 Unit/1 Ml SUBCUT 8 unit TIDWM BLADIMIR Administration Protocol Midodrine 5 mg 05/29/21 21:00 05/30/21 09:36 Midodrine 5 Mg Tablet PO 5 mg TID BLADIMIR Administration Vitamin D 1,000 unit 05/30/21 09:00 05/30/21 09:37 Cholecalciferol (Vitamin D3) 1,000 Unit Tablet PO 1,000 unit DAILY BLADIMIR Administration PFSH Acute PFSH: Medical History Anemia Atrial fibrillation CAD (coronary artery disease) Chronic kidney disease Diabetes mellitus GERD (gastroesophageal reflux disease) HTN (hypertension) Hyperlipidemia Surgical History Hx of tonsillectomy Peritoneal dialysis catheter in situ (09/24/20) S/P CABG x 4 S/P coronary artery stent placement Status post colonoscopy Status post right breast lumpectomy Social History Smoking and tobacco status: former smoker Vitals/I&O/Wt Last Vital Signs Temp 97.8 F 05/29/21 19:09 Pulse 96 05/30/21 07:00 Resp 24 H 05/30/21 07:00 BP 98/41 05/30/21 07:00 Pulse Ox 96 05/30/21 07:00 05/29/21 05/30/21 05/30/21 22:59 06:59 14:59 Intake Total 601.299 / 820.310 5839.241 / 2078.540 100 / 100 Output Total 0 / 0 0 / 0 Balance 601.299 / 095.481 4299.241 / 8.540 100 / 100 Weight last 48 hrs Weight 85.457 kg Weight 90.718 kg Physical Exam Narrative: EXAM NARRATIVE: Constitutional: Drowsy HEENT: Wet mucosa, no jvp, non icteric Lungs: Bilaterally clear without discernible wheeze or rales in all lung zones CVS: S1 S2, no murmurs Abdo: Soft, BS ok, PD exit site looks good Ext 4: Minimal edema, peripheral perfusion with no cyanosis Neurological: Grossly non-focal Data Micro: Micro: Microbiology 05/29/21 15:26 Gram Stain - Final Ankle - Abdominal 05/29/21 14:32 Blood Culture - Pr eliminary Blood SPECIMEN [facility] 05/29/21 13:12 Blood Culture - Pr eliminary Blood SPECIMEN [facility] A&P Additional A&P Information 1. ESRD To continue peritoneal dialysis Discussed with family, tomorrow will initiate PD with 10 on the cycler with 4 exchanges of 1.5% (yellow back), 1950 mL per exchange. Empty during the day. Dose medication for GFR less than 15 on PD Strict I's and O's 2. Altered mental status CT with findings of subacute RECIPROCATING DRILL OPERATOR territory CVA Leukocytosis noted with unclear source of infection, will rule out UTI Hemodynamic lability also noted I doubt uremia is playing a role. 3. Chemistry Severe hypokalemia on admission being replaced. Magnesium being replaced other chemistry looks mildly aberrant but noncritical. 4. Hemodynamics Currently requiring Levophed, continue IV hydration. Work-up for sepsis noted. Cardiology with echocardiogram appreciated. Thank you for consultation, it is a pleasure to follow these cases with you Exam and interview performed with aid of bedside RN using telemedicine Time spent 20 min inc > 50% of time in face to face counseling Gregory Bear MD [facility] [place] [phone] Consult Attestations Medical Necessity Statement: Eval for ESRD Coding Level of Care Code Acute Clinical Manager Home Care for Yulia Vicente
[2021-05-30 11:49] LABS: Glucose Point of Care 113 mg/dL (70-110)
[2021-05-30] MEDS: dextrose 5%-ns + KCl 40 40 MEQ/1,000 ML BAG 100 MEQ IV ×2 (11:52→21:52)
[2021-05-30] MEDS: pantoprazole DR 40 mg Tablet PO ×2 (12:12→16:22)
--- NOTE | 2021-05-30 12:32 | P.PN_ITS ---
Subjective Subjective: Interval history: Multiple ecchymosis of right carotid, change Eliquis to Lovenox daily regimen We'll request stress test for Tuesday She will need cardiac clearance if family decides to go with carotid intervention, Dr. Mendoza will be available on Tuesday Patient is requiring vasopressors She meets sepsis criteria Vitals/I&O/Wt Last Vital Signs Temp 97.8 F 05/29/21 19:09 Pulse 82 05/30/21 11:00 Resp 24 H 05/30/21 11:00 BP 97/50 05/30/21 11:00 Pulse Ox 96 05/30/21 11:00 05/29/21 05/30/21 05/30/21 22:59 06:59 14:59 Intake Total 601.299 / 627.821 8219.241 / 2078.540 150 / 150 Output Total 0 / 0 0 / 0 Balance 601.299 / 714.876 7923.241 / 2078.540 150 / 150 Weight last 48 hrs Weight 85.457 kg Weight 90.718 kg Physical Exam Narrative: EXAM NARRATIVE: Patient tends to lay left side, has torticollis Asymmetrical pupil Able to answer my question appropriately Able to lift her arms bilaterally against gravity, weak handgrip bilaterally Sacral area 5 x 5 cm pressure ulcer present on admission Left heel 4 x 4 cm present on admission Patient is awake alert however very drowsy Oriented to time place and person Doing well on room air Has resting tremors Risk obesity, abdomen soft No stridor or wheezing Data : 05/30/21 02:47 05/30/21 02:47 Micro: Microbiology 05/29/21 15:26 Gram Stain - Final Ankle - Abdominal Body Fluid Culture - Preliminary 05/29/21 14:32 Blood Culture - Preliminary Blood SPECIMEN COLLECTED 05/29/21 13:12 Blood Culture - Preliminary Blood SPECIMEN COLLECTED A&P Assessment and plan (1) Hypotension: Status: Acute (2) Bedbound: Status: Acute (3) CVA (cerebral vascular accident): Status: Acute (4) End stage renal failure on dialysis: Status: Acute (5) Chronic kidney disease: Status: Acute Qualifiers: Chronic kidney disease stage: stage 4 (severe) Qualified Code(s): N18.4 - Chronic kidney disease, stage 4 (severe) (6) Carotid artery disease: Status: Acute Additional A&P Information Sepsis Likely related to sacral ulcers, left heel ulcer Peritoneal fluid culture unremarkable No signs of pneumonia Escalate antibiotics to renally dosed vancomycin and Zosyn Febrile, leukocytosis trending down Hypotension likely related to sepsis Currently requiring vasopressors at 6mics Blood pressure slightly improved with albumin and small fluid bolus Judicious use of fluids considering history of dialysis Normal cortisol level and TSH Subacute CVA Pupillary asymmetry Patient is bedbound, Right carotid 80% stenosis Discussed with the family if they would proceed with carotid intervention, they would like to think about it over the weekend, will touch base with Dr. Mendoza on Tuesday Type II VT left related to sepsis Echo 50 to 55% EF, septal hypokinesia like related to A. fib Discontinue Eliquis we'll keep her on Lovenox renally dosed regimen Continue Plavix, statins Peritoneal dialysis dependent Hypokalemia, hypomagnesemia, repleted Further replenishment as per nephro Full code Renal dialysis diet DVT prophylaxis: Covered with Lovenox Daughter stating that Parkinson medication were stopped by her neurologist, this diagnosis was ruled out, she does have resting tremors Attestations Medical Necessity Statement*: Continue medical management Time Spent in Patient Care: 16 - 35 minutes Coding Level of Care Code Acute Explosive Ordnance Specialist for g Fwd Diagnoses Hypotension I95.9 Bedbound Z74.01 CVA (cerebral vascular accident) I63.9 End stage renal failure on dialysis N18.6; Z99.2 Chronic kidney disease N18.4 Chronic kidney disease stage: stage 4 (severe) Carotid artery disease I77.9
--- NOTE | 2021-05-30 13:11 | CTR_ITS ---
PROCEDURE INFORMATION: Exam: CT Abdomen And Pelvis Without Contrast Exam date and time: 05/30/2021 1:11 PM Age: 80 years old Clinical indication: Abdominal pain; Generalized; Additional info: Sacral ulcer TECHNIQUE: Imaging protocol: Computed tomography of the abdomen and pelvis without contrast. Radiation optimization: All CT scans at this facility use at least one of these dose optimization techniques: automated exposure control; mA and/or kV adjustment per patient size (includes targeted exams where dose is matched to clinical indication); or iterative reconstruction. COMPARISON: US Abdomen* [id number] 09/25/2017 8:26 AM RADIATION DOSE METRICS: Total DLP (mGy-cm): 2051. FINDINGS: Tubes, catheters and devices: There is a peritoneal dialysis catheter whose tip is in the pelvis. Pleural spaces: There is a moderate right pleural effusion. There is right lower lobe lung consolidation. Cardiomegaly is identified. Liver: Normal. No mass. Gallbladder and bile ducts: Gallstones are identified although there are no CT findings to suggest cholecystitis. Gallstones are identified although there are no CT findings to suggest cholecystitis. Pancreas: Normal. No ductal dilation. Spleen: Normal. No splenomegaly. Adrenal glands: There is a 2.3 cm left adrenal adenoma with a Hounsfield unit measurement of 10. Kidneys and ureters: There are bilateral renal cysts. No hydronephrosis. Stomach and bowel: There is fecal impaction in the rectosigmoid colon. No bowel obstruction or wall thickening.Colonic diverticula are present although there are no CT findings to suggest diverticulitis. Appendix: No evidence of appendicitis. Intraperitoneal space: No abscess or free air. There is a small amount of free fluid in the abdomen and pelvis. Vasculature: Unremarkable. No abdominal aortic aneurysm. Lymph nodes: Unremarkable. No enlarged lymph nodes. Urinary bladder: Unremarkable as visualized. Reproductive: Unremarkable as visualized. Bones/joints: Degenerative change is identified in the spine. There is no evidence for acute fracture or malalignment. Soft tissues: There is soft tissue anasarca. CT/CT abdomen pelvis wo con [id number] IMPRESSION: There is a moderate right pleural effusion. There is right lower lobe lung consolidation consistent with atelectasis and/or pneumonia. There is fecal impaction in the rectosigmoid colon. COMMENTS: 1. Consistent with the [employer]'s Incidental Findings Committee white paper (J Am Nina Radiol 2017): For any incidental adrenal lesion greater than 1 cm but less than 4 cm classified in this report as benign, likely benign, or containing fat (including classification as an adenoma or myelolipoma), no follow-up imaging is recommended per consensus recommendations based on imaging criteria. Further lab evaluation could be pursued if warranted based on clinical findings. 2. Consistent with the [employer]'s Incidental Findings Committee white paper (J Am Nina Radiol 2018): Any incidental renal lesion less than 1 cm or classified as too small to characterize, or any incidental cystic renal lesion characterized as simple-appearing, is likely benign. No follow-up imaging is recommended for these lesions per consensus recommendations based on imaging criteria.
--- NOTE | 2021-05-30 13:11 | CTR_ITS ---
PROCEDURE INFORMATION: Exam: CT Left Lower Extremity Without Contrast, Ankle Exam date and time: 05/30/2021 1:11 PM Age: 80 years old Clinical indication: Pain; Ankle; Left; Additional info: Heel ulcer TECHNIQUE: Imaging protocol: CT of the Left lower extremity without contrast was performed. Exam focused on the ankle. Radiation optimization: All CT scans at this facility use at least one of these dose optimization techniques: automated exposure control; mA and/or kV adjustment per patient size (includes targeted exams where dose is matched to clinical indication); or iterative reconstruction. COMPARISON: No relevant prior studies available. RADIATION DOSE METRICS: Total DLP (mGy-cm): 86.66 FINDINGS: Bones/joints: No CT evidence for osteomyelitis. There is osteopenia. No acute fracture or dislocation. Soft tissues: There is soft tissue ulceration along the posterior and lateral calcaneus. No soft tissue gas or abscess.No concerning radioopaque foreign bodies are identified. CT/CT ankle LT wo con* [id number] IMPRESSION: There is soft tissue cellulitis along the calcaneus. No CT evidence for osteomyelitis.
[2021-05-30] MEDS: vancomycin 750 MG in sodium chloride 0.9% 250 ML 250 MG IV (14:10)
[2021-05-30 15:04] LABS: Erythrocyte Sedimentation Rate 8 mm/hr (0-15)
[2021-05-30 15:52] LABS: Lactate (Lactic Acid level) 1.4 mmol/L (0.5-2.2)
[2021-05-30] MEDS: piperacillin-tazobactam 3.375 GM in sodium chloride 0.9% (plus) 50 ML IV (16:23)
--- NOTE | 2021-05-30 16:48 | PC.NURSE ---
in and out cath done only scant amt of urine obtained sent to lab unable to do any type of test on the amt.
--- NOTE | 2021-05-30 17:35 | USCV_ITS ---
Marie Bryant Age: 80 Gender: F : 1940 Exam Date: 05/30/2021 06:44 Ordering Phys: Nancy Malave MD Technologist: BERNICE Exam Location: [facility] [place] Indication: Troponin > 200, subacute stroke, history of CAD BP: 112 / 97 HR: 92 Rhythm: Atrial fibrillation Technical Quality: Fair MEASUREMENTS (Male / Female) Normal Values 2D ECHO LV Diastolic Diameter PLAX 4.0 cm 4.2 - 5.9 / 3.9 - 5.3 cm LV Systolic Diameter PLAX 2.7 cm IVS Diastolic Thickness 1.7 cm 0.6 - 1.0 / 0.6 - 0.9 cm IVS Systolic Thickness 1.9 cm LVPW Diastolic Thickness 1.0 cm 0.6 - 1.0 / 0.6 - 0.9 cm LVPW Systolic Thickness 1.5 cm RV Chamber Size 2.1 cm LVOT Diameter 2.0 cm LV Ejection Fraction 2D Teich 62.4 % LV Ejection Fraction MOD 2C 37.0 % LV Ejection Fraction 2C AL 41.8 % LA Diameter 4.9 cm LA Width 4.5 cm LA Height 6.3 cm RA Width 3.8 cm RA Height 4.6 cm Aorta at Sinotubular Diameter 2.5 cm M-MODE Aortic Annulus Diameter 3.9 cm LA Ao Ratio MM 1.4 MV E Point Septal Separation 0.8 cm DOPPLER AV Peak Velocity 248.0 cm/s LVOT Peak Velocity 101.0 cm/s AV Area Cont Eq vti 1.3 cm squared AV Area Cont Eq pk 1.3 cm squared MV Area PHT 5.0 cm squared MV E' Velocity 103.0 cm/s TR Peak Velocity 254.5 cm/s TR Peak Gradient 25.9 mmHg TR Mean Velocity 195.2 cm/s TR Mean Gradient 15.8 mmHg TR Velocity Time Integral 74.8 cm TV Peak E Velocity 66.0 cm/s Right Atrial Pressure 15.0 mmHg Pulmonary Artery Systolic Pressu 40.9 mmHg RV Acceleration Time 0.1 s RV Ejection Time 0.3 s RV AcT/ET 0.2 FINDINGS Left Ventricle Normal left ventricular size borderline low LV ejection fraction of 50 to 55%. Mild diffuse hypokinesia of the septum Right Ventricle RV size with a slightly diminished ejection fraction Right Atrium Mildly increased right atrial size. Left Atrium Moderately increased left atrial size. Mitral Valve Moderate mitral valve regurgitation. Aortic Valve Thickened and stenotic aortic valve.urlp-uh-nfrlkuzg aortic valve regurgitation. Moderate aortic valve stenosis, mean gradient 13.3 mmHg, BO 1.3 cm squared. The peak velocity was 2.56 m/s Tricuspid Valve Saub-[id number]-[id number] tricuspid valve regurgitation. Pulmonic Valve No gross abnormalities noted Pericardium Normal pericardium without effusion. Aorta Normal aortic annulus size. CONCLUSIONS Normal left ventricular size borderline low LV ejection fraction of 50 to 55%. Mild diffuse hypokinesia of the septum. Moderate aortic valve stenosis, mean gradient 13.3 mmHg, BO 1.3 cm squared. The peak velocity was 2.56 m/s. Moderate mitral valve regurgitation. Biatrial enlargement -moderately dilated left atrium with mildly dilated right atrium Yqpy-vy-trssvwui aortic and tricuspid valve regurgitation. Mild pulmonary hypertension with an estimated pulmonary artery peak systolic pressure of 41 mmHg. There is no pericardial effusion. There are no intracardiac masses. Compared to the study from 09/20/2017, there is development of aortic valve stenosis and slight drop in the LV ejection fraction. Dr Kasie Oliver MD FACC (Electronically Signed) Final Date: 30 May 2021 09:48 S
[2021-05-30 17:40] LABS: Glucose Point of Care 155 mg/dL (70-110)
--- NOTE | 2021-05-30 18:13 | NUR.SHIFT ---
Shift Note Frequent safety and comfort rounds continue. Orders and/or nursing care completed as indicated. Patient monitored for response to intervention and treatment(s). Education provided includes[]. Patient and/or credit and collections representative [ResponseToTeaching]. Will continue to monitor. speciall dialysis fluid per home med and her home therapy scanned in for doctor Bear to see in morning to reevaluate in am has had small amt po intake at this time daughter at bedside
[2021-05-30] MEDS: atorvastatin 40 mg Tablet 20 MG PO (20:39)
[2021-05-30] MEDS: acetaminophen 325 mg Tablet 650 MG PO (20:40)
[2021-05-31] VITALS (48 sets, daily range): BP systolic 67–127; BP diastolic 37–73; PULSE 86–128; RESP 21–36; TEMP 36.6; O2SAT 89–95
[2021-05-31] MEDS: piperacillin-tazobactam 3.375 GM in sodium chloride 0.9% (plus) 50 ML IV ×2 (03:18→15:04)
[2021-05-31 03:50] LABS: Basophils % 0.2 %; Eosinophils # 0.1 10^3/uL (0.0-0.8); Eosinophils % 0.4 %; Hematocrit 28.7 % (37.0-47.0); Hemoglobin 9.5 g/dL (11.5-15.3); Lymphocytes # 1.1 10^3/uL (0.8-4.8); Lymphocytes % 8.1 %; Mean Corpuscular HGB Conc 33.1 g/dL (30.0-36.0); Mean Corpuscular Hemoglobin 35.3 pg (28.0-34.0); Mean Corpuscular Volume 106.7 fl (81-99); Mean Platelet Volume 10.5 fL (7.4-10.4); Monocytes % 7.4 %; Neutrophils # 10.35 10^3/uL (1.8-7.7); Neutrophils % 75.3 %; Nucleated Red Blood Cells # 0.1 /100WBC; Platelet Count 142 10^3/cmm (130-400); Red Blood Count 2.69 10^6/uL (4.1-5.3); Red Cell Distribution Width 22.1 % (12.1-15.1); White Blood Count 13.8 10^3/uL (4.0-10.0)
[2021-05-31 04:10] LABS: Anion Gap 19.2 (5-19); Blood Urea Nitrogen 33 mg/dL (8-23); Calcium 9.1 mg/dL (8.5-10.5); Carbon Dioxide 19 mmol/L (22-29); Chloride 98 mmol/L (98-107); Glucose 235 mg/dL (65-115); Osmolality Calculated 289 mOsm/kg (285-295); Potassium 4.2 mmol/L (3.5-5.1); Sodium 132 mmol/L (136-145)
[2021-05-31 04:15] LABS: Slide Review Slide Review Perform
--- NOTE | 2021-05-31 06:11 | PC.NURSE ---
No acute changes overnight. Family stayed bedside overnight to assist with peritoneal dialysis.
[2021-05-31 07:56] LABS: Glucose Point of Care 258 mg/dL (70-110)
[2021-05-31] MEDS: insulin lispro 100 unit/1 mL SUBCUT ×3 (08:30→18:16)
[2021-05-31] MEDS: dextrose 5%-ns + KCl 40 40 MEQ/1,000 ML BAG 100 MEQ IV ×2 (09:47→20:16)
[2021-05-31] MEDS: cholecalciferol (vitamin D3) 1,000 unit Tablet 1000 UNIT PO (09:48)
[2021-05-31] MEDS: clopidogrel 75 mg Tablet PO (09:48)
[2021-05-31] MEDS: calcium acetate 667 mg Capsule PO ×3 (09:48→20:19)
[2021-05-31] MEDS: enoxaparin 100 mg/mL Syringe 90 MG SUBCUT (09:48)
[2021-05-31] MEDS: midodrine 5 mg TABLET PO ×2 (09:49→14:11)
[2021-05-31 11:08] LABS: Mononuclear #, Pertinoneal Fl 0.004 10^3/uL; Polynuclear # Cells, Perit 0.003 10^3/uL
[2021-05-31 11:31] LABS: Appearance, Peritoneal Fluid Clear (Clear); Color, Peritoneal Fluid Colorless (Pale Yellow); Pathology Referral Yes; RBC Pertioneal Fluid 1 10^3/uL; WBC Peritoneal Fluid 7 /uL
--- NOTE | 2021-05-31 11:51 | P.PN_ITS ---
Subjective Subjective: Interval history: remains sick in the ICU with increasing need for vasopressor agents. PD uneventful but bag does have some cloudiness and bloodiness. No edema and no other hypervolemic/uremic Sx. Vitals/I&O/Wt Last Vital Signs Temp 97.8 F 05/31/21 08:00 Pulse 95 05/31/21 10:00 Resp 30 H 05/31/21 10:00 BP 98/51 05/31/21 10:00 Pulse Ox 95 05/31/21 10:00 05/30/21 05/31/21 05/31/21 22:59 06:59 14:59 Intake Total 1460 / 1794.404 293.934 / 2088.338 1375.463 / 1375.463 Output Total 0 / 0 Balance 1460 / 1794.404 293.934 / 2088.338 1375.463 / 1375.463 Weight last 48 hrs Weight 85.457 kg Weight 90.718 kg Physical Exam Narrative: EXAM NARRATIVE: Constitutional: Drowsy HEENT: Wet mucosa, no jvp, non icteric Lungs: Bilaterally clear without discernible wheeze or rales in all lung zones CVS: S1 S2, no murmurs Abdo: Soft, BS ok, PD exit site looks good Ext 4: Minimal edema, peripheral perfusion with no cyanosis Neurological: Grossly non-focal Data : 05/31/21 03:28 05/31/21 03:28 Micro: Microbiology 05/29/21 14:32 Blood Culture - Preliminary Blood NEGATIVE TO DATE 05/29/21 13:12 Blood Culture - Preliminary Blood NEGATIVE TO DATE 05/29/21 15:26 Gram Stain - Final Ankle - Abdominal Body Fluid Culture - Preliminary A&P Additional A&P Information 1. ESRD To continue peritoneal dialysis Discussed with family, tomorrow will initiate PD with 10 on the cycler with 4 exchanges of 1.5% (yellow back), 1950 mL per exchange. Empty during the day. Dose medication for GFR less than 15 on PD Strict I's and O's 2. Altered mental status CT with findings of subacute FINISHING RANGE FEEDER territory CVA Leukocytosis noted with unclear source of infection, unclear infectious source Hemodynamic lability also noted 3. Chemistry More balanced after replacement 4. Hemodynamics Currently requiring Levophed, continue IV hydration. Work-up for sepsis noted. Cardiology with echocardiogram appreciated. Thank you for consultation, it is a pleasure to follow these cases with you D/w family at bedside Exam and interview performed with aid of bedside RN using telemedicine Time spent 20 min inc > 50% of time in face to face counseling Gregory Bear MD [facility] [phone] Attestations Medical Necessity Statement*: eval for ESRD on PD Coding Level of Care Code Acute Dry House Worker for Chg Fwbel
--- NOTE | 2021-05-31 11:55 | PC.NURSE ---
family here at bedside aware of pt status ect... all very tearful and anxoius Dr Hong to come talk with them
[2021-05-31 12:27] LABS: Glucose Point of Care 176 mg/dL (70-110)
[2021-05-31] MEDS: collagenase oint 30 gm 1 APPLIC TOPICAL (13:37)
[2021-05-31] MEDS: pantoprazole DR 40 mg Tablet PO (14:11)
--- NOTE | 2021-05-31 15:54 | PM.PN ---
Subjective Subjective: Interval history: Had 3-4 meetings today with the patient, her daughter, Sister & metal polisher patient is stating that she would like to give herself a chance and would like to go for the stress test and possibly carotid intervention if stress test is negative I told her that she carries high risk of complications considering the fact that she is still septic and requiring vasopressors, today ALbumin has been added along stress dose steroids in order to weanoff levophed. If remains in RVR and on vasopressors stress test might not be possible Daughter is leaning towards bringing her home w palliative care if she stays on vasopressors and not suitable for surgery and stress test, They would like to discuss their options after stress test with DR Todd Grullon running at [facility]mics albumin started overnight PD done : 275positive balance overall w PD labile BP Vitals/I&O/Wt Last Vital Signs Temp 97.8 F 05/31/21 08:00 Pulse 128 H 05/31/21 14:00 Resp 31 H 05/31/21 14:00 BP 104/57 05/31/21 14:00 Pulse Ox 93 05/31/21 14:00 05/31/21 05/31/21 05/31/21 06:59 14:59 22:59 Intake Total 293.934 / 2088.338 1485.463 / 1485.463 Output Total 0 / 0 Balance 293.934 / 2088.338 1485.463 / 1485.463 Weight last 48 hrs Weight 85.457 kg Physical Exam Narrative: EXAM NARRATIVE: Pt very lethargic and tired leaning towards left side She keeps eyes closed and open when light are tuned off in the room Asymmetrcial pupil Following commands Awake and alert oriented x3 ABle to move her upper extremities to some extent against gravity no strength at all legs Bruises and petechaie of legs Left heel ulcer with moistened open central area , no signs of ischemia , macerated skin around the wound sacral ulcer without necrosis S1. S2 variable Sat well on RA Data : 05/31/21 03:28 05/31/21 03:28 Micro: Microbiology 05/29/21 15:26 Gram Stain - Final Ankle - Abdominal Body Fluid Culture - Preliminary 05/31/21 08:50 Gram Stain - Final Peritoneal Fluid 05/29/21 14:32 Blood Culture - Preliminary Blood NEGATIVE TO DATE 05/29/21 13:12 Blood Culture - Preliminary Blood NEGATIVE TO DATE A&P Assessment and plan (1) Acute hypokalemia: Status: Acute (2) Carotid artery disease: Status: Acute (3) Hypotension: Status: Acute (4) Bedbound: Status: Acute (5) CVA (cerebral vascular accident): Status: Acute (6) GERD (gastroesophageal reflux disease): Status: Acute (7) End stage renal failure on dialysis: Status: Acute (8) Chronic anticoagulation: Status: Acute (9) Atrial fibrillation with RVR: Status: Acute (10) CAP (community acquired pneumonia): Status: Acute (11) Sacral ulcer: Status: Acute (12) Ulcer of left heel: Status: Acute Additional A&P Information SUBACUTE CVA Evident on CT head on admit not a candidate of TPA Pupillary asymmetry Carotid rt 80% stenosis Will need pre op clearance with stress test on Tuesday if we are able to wean vasopressors off today Pt and family both aware that she carries high risk of perioperative complications and would like to discuss with Dr Brooks on Tuesday Added plavix to her anticogulant regimen ( eliquis) Changed eliquis to lovenox inpatient only renally dosed AFib RVR Continue her AV wilman blocking agnets for now It will get better when we turn off levophed on Lovenox renally dosed Septic shock related to left heel ulcer and CAP Continue VANC and zosyn peritoneal fluid sent twice : - no signs of infection on levo at 7 today added albumin and stress dose steroids normal tsh and cortisol HYpokalmeia :- improved hypomagnesemia:- improved TYpe 2 MT STress test on Tuesday Guarded prognosis bed bound full code renal Diet npo after MN Attestations Medical Necessity Statement*: continue iCU care Time Spent in Patient Care: Greater than 35 minutes Critical Care Time: patient evaluation, family meeting , talked with nephro , nurses Critical Care Time (min): 60 Coding Level of Care Code Acute Technical Sales Support Specialist for Lilliang Fwd Diagnoses Acute hypokalemia E87.6 Carotid artery disease I77.9 Hypotension I95.9 Bedbound Z74.01 CVA (cerebral vascular accident) I63.9 GERD (gastroesophageal reflux disease) K21.9 End stage renal failure on dialysis N18.6; Z99.2 Chronic anticoagulation Z79.01 Atrial fibrillation with RVR I48.91 CAP (community acquired pneumonia) J18.9 Sacral ulcer L98.429 Ulcer of left heel L97.429
--- NOTE | 2021-05-31 16:59 | PC.SLP ---
Family requests COW TESTER hold off on treatment at present.
--- NOTE | 2021-05-31 17:50 | NUR.SHIFT ---
Shift Note Frequent safety and comfort rounds continue. Orders and/or nursing care completed as indicated. Patient monitored for response to intervention and treatment(s). Education provided includes[ stress test and carotid surgery]. Patient and/or inside account representative aware of status. Will continue to monitor. had discussion with family at length about status and resucitation status at this time will remain full code and attempt stress test am ...
[2021-05-31] MEDS: hydrocortisone 100 mg/2 mL SDV IVP (18:04)
[2021-05-31] MEDS: sodium chloride 0.9% 250 ML IV (18:05)
[2021-05-31] MEDS: amiodarone 200 mg Tablet PO (18:05)
[2021-05-31 18:15] LABS: Glucose Point of Care 239 mg/dL (70-110)
[2021-05-31] MEDS: atorvastatin 40 mg Tablet 20 MG PO (20:19)
[2021-05-31] MEDS: midodrine 5 mg TABLET 10 MG PO (20:19)
[2021-05-31] MEDS: acetaminophen 325 mg Tablet 650 MG PO (20:20)
[2021-06-01] VITALS (48 sets, daily range): BP systolic 98–135; BP diastolic 58–101; PULSE 48–119; RESP 17–42; TEMP 36.6–37.2; O2SAT 87–99
[2021-06-01 04:08] LABS: Basophils # 0.1 10^3/uL (0.0-0.1); Basophils % 0.5 %; Hematocrit 27.7 % (37.0-47.0); Lymphocytes # 0.4 10^3/uL (0.8-4.8); Lymphocytes % 3.9 %; Mean Corpuscular HGB Conc 32.5 g/dL (30.0-36.0); Mean Corpuscular Hemoglobin 35.2 pg (28.0-34.0); Mean Corpuscular Volume 108.2 fl (81-99); Mean Platelet Volume 10.9 fL (7.4-10.4); Monocytes # 0.3 10^3/uL (0.2-0.9); Monocytes % 2.6 %; Neutrophils # 9.02 10^3/uL (1.8-7.7); Nucleated Red Blood Cells % 0.3 %; Platelet Count 118 10^3/cmm (130-400); Red Blood Count 2.56 10^6/uL (4.1-5.3); Red Cell Distribution Width 22.3 % (12.1-15.1)
[2021-06-01 04:27] LABS: Alanine Aminotransferase 15 U/L (0-33); Albumin Level 3.2 g/dL (3.5-5.2); Alkaline Phosphatase 93 IU/L (35-105); Anion Gap 20.2 (5-19); Aspartate Amino Transferase 18 U/L (0-32); Blood Urea Nitrogen 27 mg/dL (8-23); C Reactive Protein 103.2 mg/L (0.0-4.9); Calcium 8.8 mg/dL (8.5-10.5); Carbon Dioxide 16 mmol/L (22-29); Chloride 101 mmol/L (98-107); Globulin 1.8 g/dL (1.3-4.6); Glucose 300 mg/dL (65-115); Osmolality Calculated 290 mOsm/kg (285-295); Potassium 5.2 mmol/L (3.5-5.1); Sodium 132 mmol/L (136-145); Total Bilirubin 0.5 mg/dL (0.15-1.2)
[2021-06-01 04:31] LABS: Procalcitonin 0.86 ng/mL (0-0.5)
[2021-06-01 04:45] LABS: Slide Review Slide Review Perform
[2021-06-01] MEDS: amiodarone 200 mg Tablet PO (05:41)
[2021-06-01] MEDS: hydrocortisone 100 mg/2 mL SDV IVP ×2 (05:41→16:12)
[2021-06-01] MEDS: piperacillin-tazobactam 3.375 GM in sodium chloride 0.9% (plus) 50 ML IV ×2 (05:42→16:12)
--- NOTE | 2021-06-01 07:13 | PC.NURSE ---
Shift Note Frequent safety and comfort rounds continue. Orders and/or nursing care completed as indicated. Patient monitored for response to intervention and treatment(s). Education provided includes wound care and Levophed. Patient family verbalized understanding of teaching. Patient had an uneventful night, Levophed weaned down to 2 mcg/min and patient is alert/oriented x4. Wound on coccyx redressed with Optifoam dressing, wound on left heel dry and intact. Skin tear on right arm covered with a Telfa. Patient produced no urine and had one liquid bowel movement overnight. Patient daughter at bedside. Will continue to monitor.
--- NOTE | 2021-06-01 07:24 | P.CONIM_ITS ---
Providers/Reason For Consult Consulting Physician/Specialty*: Dr. Mendoza/cardiothoracic surgery Reason for Consult*: Right internal carotid artery stenosis Attending Physician: Nancy Malave MD Primary Care Provider: Karuna Curtis MD History of Present Illness History of Present Illness Marie Bryant is an 80 year old female with numerous medical problems including chronic renal failure on peritoneal dialysis. She was admitted through the emergency department after presenting with hypotension and altered mental status. CT scan revealed evidence for an acute infarction of the posterior communicating artery distribution also involving the posterior portion of the right temporal lobe. She also had established criteria for sepsis. She was initiated on judicious fluid boluses along with vasopressors. Initial troponin was elevated. Consideration for non-STEMI has been entertained. Fairly, she is scheduled for stress test when appropriate. She does have chronic A. fib and is on Eliquis. She has not ambulated in at least 3 years. She resides at home with her daughter. She was last in a chair 4 days ago, prior to admission. Her daughter transfers her with the use of a Yaquelin lift. She has been on PD dialysis since September of this year. She currently is still on vasopressin though this is being weaned and hopefully will be off later today. Significant past history includes renal failure, CABG, coronary stents, and essentially bedbound for the past few years. Reviewed Ms. Bryant and examined her in ICU bed 4 with daughter at bedside. Head CT of May 29 reveals: 1. No evidence of intracranial hemorrhage 2. Low-attenuation change in the right PUBLIC RELATIONS ANALYST territory extending to the cortex involves the posterior right temporal lobe measuring 3.5 x 3.5 cm compatible with subacute PUBLIC RELATIONS ANALYST territory infarct. 3. Mild small vessel changes with moderate parenchymal volume loss. Head/neck CTA of 31: 1. Calcified atherosclerotic plaque the carotid siphons with moderate stenosis bilaterally. 2. No intracranial large vessel occlusion. Specifically, no right PUBLIC RELATIONS ANALYST occlusion. 3. 5 mm focus of enhancement associated with left frontal calcification. This could represent a cavernous malformation. Recommend non emergent brain MRI. Note what is described as a greater than 80% stenosis of the proximal right ICA. Presently, She is on weaning doses of Levophed. She is also on Zosyn and vancomycin. Review of Systems Narrative: Generalized weakness with limited mobility related to numerous chronic medical problems. Does not ambulate. Utilizes a wheelchair for the past 2 to 3 years according to the daughter. Transfers with the use of a Yaquelin lift. Const: Reports: fatigue and malaise Card: Reports: palpitations, irregular heart rhythm, edema and pre-syncope; Denies: chest pain Resp: Reports: dyspnea; Denies: hemoptysis Musc: Reports: neck pain, back pain and joint pain Neuro: Reports: dizziness Psych: Denies: anxiety or depression Meds/Allergies Home Medications and Allergies Home Medications Medication Instructions Recorded Confirmed Last Taken Type amiodarone 200 mg tablet 200 mg PO QAM 09/09/20 05/29/21 05/29/21 10:00 History apixaban 2.5 mg tablet 2.5 mg PO BID 09/09/20 05/29/21 05/29/21 10:00 History cholecalciferol (vitamin D3) 25 25 mcg PO DAILY 09/09/20 05/29/21 09/23/20 History mcg (1,000 unit) capsule mirtazapine 30 mg tablet 30 mg PO BEDTIME 09/09/20 05/29/21 Unknown History pantoprazole 20 mg tablet,delayed 20 mg PO DAILY@12 09/09/20 05/29/21 05/28/21 History release simvastatin 20 mg tablet 20 mg PO BEDTIME 09/09/20 05/29/21 09/23/20 History tramadol 50 mg tablet 50 mg PO Q6H PRN 09/09/20 05/29/21 09/23/20 History calcium acetate 667 mg PO TID 10/24/20 05/29/21 05/29/21 10:00 History docusate sodium 100 mg tablet 100 - 200 mg PO BEDTIME tab 04/14/21 05/29/21 Unknown History escitalopram oxalate 20 mg tablet 20 mg PO DAILY 04/14/21 05/29/21 Unknown History tizanidine 2 mg capsule 2 mg PO DAILY PRN cap 04/14/21 05/29/21 Unknown History vit B,C-folic ac 800 mcg-zinc 12.5 1 tab PO DAILY@12 04/14/21 05/29/21 05/28/21 History mg-selen-D3 2,000 unit-vit E tablet gentamicin See Rx Instructions .ROUTE .COMPLEX 05/29/21 05/29/21 Unknown History insulin aspart U-100 [Novolog See Rx Instructions .ROUTE .COMPLEX 05/29/21 05/29/21 05/29/21 History Flexpen U-100 Insulin] 9 UNITS ipratropium-albuterol 3 ml INHALATION .2-4 TIMES A DAY 05/29/21 05/29/21 Unknown History metoprolol tartrate 12.5 mg PO BID 05/29/21 05/29/21 05/29/21 10:00 History midodrine 5 mg PO TID 05/29/21 05/29/21 05/29/21 10:00 History 10 MG olopatadine [Pataday Twice Daily 1 drp OPHTHALMIC (EYE) BID 05/29/21 05/29/21 Unknown History Relief] polyethylene glycol 3350 [Miralax] 17 g PO DAILY PRN 05/29/21 05/29/21 Unknown History Allergies Allergy/AdvReac Type Severity Reaction Status Date / Time No Known Allergies Allergy Verified 05/29/21 14:10 Current Medications Current Medications Generic Name Dose Route Start Last Admin Trade Name Freq PRN Reason Stop Dose Admin Acetaminophen 650 mg 05/29/21 17:35 05/31/21 20:20 Acetaminophen 325 Mg Tablet PO 650 mg Q6H PRN Administration Mild/Mod Pain Or Temp >/= 101 Amiodarone HCl 200 mg 05/31/21 16:20 06/01/21 05:41 Amiodarone 200 Mg Tablet PO 200 mg QAM BLADIMIR Administration Atorvastatin Calcium 20 mg 05/29/21 21:00 05/31/21 20:19 Atorvastatin 40 Mg Tablet PO 20 mg BEDTIME BLADIMIR Administration Calcium Acetate 667 mg 05/29/21 21:00 05/31/21 20:19 Calcium Acetate 667 Mg Capsule PO 667 mg TID BLADIMIR Administration Clopidogrel Bisulfate 75 mg 05/30/21 09:00 05/31/21 09:48 Clopidogrel 75 Mg Tablet PO 75 mg DAILY BLADIMIR Administration Collagenase 1 applic 05/31/21 09:00 05/31/21 13:37 Collagenase Oint 30 Gm TOPICAL 1 applic DAILY BLADIMIR Administration Enoxaparin Sodium 90 mg 05/31/21 09:00 05/31/21 09:48 Enoxaparin 100 Mg/Ml Syringe 1 mg/kg (90 mg) 90 mg SUBCUT Administration DAILY [facility] Hydrocortisone Sodium Succinate 100 mg 05/31/21 16:20 06/01/21 05:41 Hydrocortisone 100 Mg/2 Ml Sdv IVP 100 mg Q12H BLADIMIR Administration Norepinephrine Bitartrate 4 mg 254 mls @ 0 mls/hr 05/29/21 14:15 06/01/21 06:49 / Dextrose IV 2 mcg/min .Q0M BLADIMIR 7.62 mls/hr Titration Protocol Per Protocol Potassium Chloride/Dextrose/Sod Cl 40 meq in 1,000 mls @ 100 mls/hr 05/29/21 18:45 05/31/21 20:16 Dextrose 5%-Ns + Kcl 40 IV 100 mls/hr .Q10H BLADIMIR Administration Vancomycin HCl 750 mg/ Sodium 250 mls @ 250 mls/hr 05/30/21 14:00 05/30/21 17:17 Chloride IV Infused Q60H BLADIMIR Infusion Piperacillin Sod/Tazobactam 50 mls @ 12.5 mls/hr 05/30/21 16:00 06/01/21 05:42 Sod 3.375 gm/ Sodium Chloride IV 12.5 mls/hr Q12H BLADIMIR Administration Albumin Human 25 gm in 100 mls @ 60 mls/hr 05/31/21 08:00 05/31/21 21:59 Albumin IV Infused Q12H BLADIMIR Infusion Insulin Human Lispro 0 unit 05/29/21 18:00 05/31/21 18:16 Insulin Lispro 100 Unit/1 Ml SUBCUT 8 unit TIDWM BLADIMIR Administration Protocol Midodrine 10 mg 05/31/21 21:00 05/31/21 20:19 Midodrine 5 Mg Tablet PO 10 mg TID BLADIMIR Administration Non-Formulary Medication 1 tab 05/30/21 12:00 05/31/21 13:07 Vit B,B-Ri-Jdxk-Selen-Vit D3-E [Renaplex-D] PO Not Given DAILY@12 [facility] Pantoprazole Sodium 40 mg 05/30/21 12:00 05/31/21 14:[address] 40 Mg Tablet PO 40 mg DAILY@12 BLADIMIR Administration Vitamin D 1,000 unit 05/30/21 09:00 05/31/21 09:48 Cholecalciferol (Vitamin D3) 1,000 Unit Tablet PO 1,000 unit DAILY BLADIMIR Administration PFSH Acute PFSH: Medical History Anemia Atrial fibrillation CAD (coronary artery disease) Chronic kidney disease Diabetes mellitus GERD (gastroesophageal reflux disease) HTN (hypertension) Hyperlipidemia Sepsis Surgical History Hx of tonsillectomy Peritoneal dialysis catheter in situ (09/24/20) S/P CABG x 4 S/P coronary artery stent placement Status post colonoscopy Status post right breast lumpectomy Family History Other Medical history non-contributory Social History Smoking and tobacco status: former smoker Vitals/I&O/Wt Last Vital Signs Temp 98.5 F 06/01/21 04:00 Pulse 106 H 06/01/21 06:30 Resp 28 H 06/01/21 06:30 BP 119/83 06/01/21 06:30 Pulse Ox 94 06/01/21 06:30 05/31/21 06/01/21 06/01/21 22:59 06:59 14:59 Intake Total 1681.521 / 3166.984 159.512 / 3326.496 Output Total 0 / 0 Balance 1681.521 / 3166.984 159.512 / 3326.496 Physical Exam HENMT: COMMON NORMALS: normocephalic, atraumatic and hearing grossly normal bilaterally HEAD & SCALP: normocephalic and atraumatic Neck/C-Spine: COMMON NORMALS: negative for full ROM GENERAL: Yes trachea midline and No lymphadenopathy CAROTIDS: No bruit and No Carotid tenderness present CERVICAL SPINE: No cervical ROM normal, Yes loss of normal cervical lordosis and Yes collar present Chest: COMMONS NORMALS: normal palpation of entire chest wall CHEST: Yes Symmetrical chest wall rise Resp: COMMON NORMALS: normal respiratory effort and No use of accessory muscles EFFORT & INSPECTION: Yes symmetric chest movement, No tracheal deviation and No prolonged expiratory phase AUSCULTATION: diminished lung sounds on the right Cardio: COMMON NORMALS: regular rate; negative for regular rhythm JUGULAR VENOUS DISTENTION: no JVD RATE: regular rate RHYTHM: abnormal rhythm and abnormal rhythm irregularly irregular BRUITS: no carotid bruits GI: COMMON NORMALS: Soft to palpation and non-tender PALPATION: Yes Soft to palpation Extremity: COMMON NORMALS: no calf tenderness Skin: COMMON NORMALS: negative for turgor normal GENERAL SKIN EXAM: decreased turgor, atrophy, dry skin, petechiae, purpura and turgor decreased TRAUMA: abrasion (Right pretibial region) Data Micro: Micro: Microbiology 05/29/21 15:26 Gram Stain - Final Ankle - Abdominal Body Fluid Culture - Preliminary 05/31/21 08:50 Gram Stain - Final Peritoneal Fluid A&P Assessment and plan (1) Carotid artery disease: Pleasant 80-year-old female with numerous medical problems currently recovering from sepsis with Levophed still in place no being decreased. CTA of the neck suggested 80% or greater right ICA stenosis proximally. Heavy calcifications. Right PUBLIC RELATIONS ANALYST territory infarct. Chronic A. fib with heart rate under good control. Troponin leak concerning for possible non-STEMI with stress test being considered. Requires full support for transfer with the use of a Yaquelin lift at home. Recommendation: I would not recommend proceeding with carotid intervention at this time given the numerous comorbidities which are currently in place. I discussed this very frankly with Ms. Guerrero and her daughter who was at bedside. Option to consider intervention for this carotid lesion could be reassessed in the future as she recovers from her current problems. Both Ms. Bryant and her daughter appear to be in agreement with our current recommendations. I will be available as needed. Status: Acute Consult Attestations Medical Necessity Statement: Right ICA stenosis with recent right PUBLIC RELATIONS ANALYST territory infarct Time Spent in Patient Care: Greater than 35 minutes Coding Level of Care Code Acute Sensitometrist for Yulia Vicente Diagnoses Carotid artery disease I77.9
[2021-06-01 07:51] LABS: Glucose Point of Care 294 mg/dL (70-110)
[2021-06-01] MEDS: sennosides-docusate Tablet 1 TAB PO (08:20)
[2021-06-01] MEDS: calcium acetate 667 mg Capsule PO ×3 (08:20→20:12)
[2021-06-01] MEDS: cholecalciferol (vitamin D3) 1,000 unit Tablet 1000 UNIT PO (08:21)
[2021-06-01] MEDS: clopidogrel 75 mg Tablet PO (08:21)
[2021-06-01] MEDS: midodrine 5 mg TABLET 10 MG PO ×3 (08:21→20:12)
[2021-06-01] MEDS: enoxaparin 100 mg/mL Syringe 90 MG SUBCUT (08:21)
[2021-06-01] MEDS: insulin lispro 100 unit/1 mL SUBCUT ×2 (08:21→13:22)
--- NOTE | 2021-06-01 09:43 | PC.SOCIAL ---
IMM Update Pg. 2 of IMM updated and reviewed with patient's daughter Sadie at bedside, verbalized understanding. Copy provided.
--- NOTE | 2021-06-01 09:50 | CTR_ITS ---
PROCEDURE INFORMATION: Exam: CT Right Lower Extremity Without Contrast, Ankle Exam date and time: 06/01/2021 9:50 AM Age: 80 years old Clinical indication: Other: Wound draining; Additional info: Draining wound TECHNIQUE: Imaging protocol: CT of the Right lower extremity without contrast was performed. Exam focused on the ankle. Axial, coronal and sagittal reformatted images were created and reviewed. Radiation optimization: All CT scans at this facility use at least one of these dose optimization techniques: automated exposure control; mA and/or kV adjustment per patient size (includes targeted exams where dose is matched to clinical indication); or iterative reconstruction. COMPARISON: No relevant prior studies available. RADIATION DOSE METRICS: Total DLP (mGy-cm): 111.88 FINDINGS: Bones/joints: Osteopenia. Chronic deformity of the distal fibula and tibia. No CT evidence of acute fracture or dislocation. Severe degenerative changes. Soft tissues: Soft tissue ulceration overlying the lateral malleolus. Diffuse subcutaneous edema. No definite organized collection. No soft tissue gas. Diffuse muscle atrophy. CT/CT ankle RT wo con* [id number] IMPRESSION: 1. Limited noncontrast examination. 2. Cellulitis with a soft tissue ulceration overlying the lateral malleolus. No definite organized collection. 3. Additional findings, as above.
--- NOTE | 2021-06-01 10:06 | PC.CHAP ---
Pastoral Care Encounter/Spiritual Assessment Type of Contact [] Declined framing manager visit [] Patient/Family/Request visit [] Outpatient visit [] Follow-up visit [] Physician referral [] Code/Alert [x] Routine visit [] Staff referral [] Actively dying [] Patient sleeping [x] Family support [] [] Out of room [] Palliative care [] [] Receiving care in room [] Pre-surgical visit [] Trauma [] Long length of stay [x] ICU visit [] Other: Relational/Emotional Strength [] Patient feels connected with others/family/visitors/staff [] Distress [] Loneliness/isolation [] Abandonment Spirituality of Patient [x] Person of Roselyn [] Attends Confucianist of their Roselyn [] Believes in Prayer [] Reads Bible or Jewish materials [] There are Spiritual issues to be addressed Rn Transitional Care Interventions [x] Prayer [x] Active listening [x] Non-anxious presence [x] Spiritual/emotional support [] Crisis/trauma care [] Spiritual counseling [] Bereavement support [] Provided bereavement packet [] Provided Bible/devotional materials [] Provided toy/stuffed animal, coloring book to patient or family member [] Provided Communion [] Anointing/[place] [] Salvation [x] Completed spiritual assessment [] Other: Impact on Illness or Injury [] Angry [] Fearful [] Anxious [] Often cries [] Exhaustion [] Unable to work [] Unable to attend yarsani [] Unable to walk/stand [] Unable to read [] Unable to drive [] Unable to eat/drink [] Unable to sleep [] Unable to be with family [] Patient intubated [] Other: Summary patient weak, but able to ask questions of the framing manager which were answered... daughter stayed the night with patient... resting well.. Time spent with patient 15 min
--- NOTE | 2021-06-01 10:16 | P.PN_ITS ---
Subjective Subjective: Interval history: Feels very weak, minimally interactive, very weak. PD going well. PD effluent is slightly yellow and pink-tinged. Analysis demonstrates very few white blood cells though, somewhat reassuring. She does have some extremity edema in her arms, not in her legs. Vitals/I&O/Wt Last Vital Signs Temp 97.8 F 06/01/21 07:30 Pulse 106 H 06/01/21 08:30 Resp 23 H 06/01/21 08:30 BP 126/84 06/01/21 08:30 Pulse Ox 96 06/01/21 08:30 05/31/21 06/01/21 06/01/21 22:59 06:59 14:59 Intake Total 1681.521 / 3166.984 159.512 / 3326.496 73.495 / 73.495 Output Total 0 / 0 Balance 1681.521 / 3166.984 159.512 / 3326.496 73.495 / 73.495 Physical Exam Narrative: EXAM NARRATIVE: Constitutional: Drowsy HEENT: Wet mucosa, no jvp, non icteric Lungs: Bilaterally clear without discernible wheeze or rales in all lung zones CVS: S1 S2, no murmurs Abdo: Soft, BS ok, PD exit site looks good Ext 4: Minimal edema, peripheral perfusion with no cyanosis Neurological: Grossly non-focal Data : 06/01/21 03:22 06/01/21 03:22 Micro: Microbiology 05/29/21 15:26 Gram Stain - Final Ankle - Abdominal Body Fluid Culture - Preliminary 05/31/21 08:50 Gram Stain - Final Peritoneal Fluid A&P Additional A&P Information 1. ESRD To continue peritoneal dialysis CCPD with 10 on the cycler with 4 exchanges of 1.5% (yellow back), 1950 mL per exchange. Empty during the day. Being managed by her daughter Dose medication for GFR less than 15 on PD Strict I's and O's 2. Altered mental status CT with findings of subacute ACOUSTIC WARFARE ANALYST territory CVA Leukocytosis noted with unclear source of infection, unclear infectious source Hemodynamic lability also noted 3. Chemistry Abnormal chemistry, it is suggestive of some contamination from the IV fluid. We will stop the IV fluid at this time. Recheck labs in the a.m. without any other intervention in the meantime as these are noncritical values. 4. Hemodynamics Currently pff Levophed and IV hydration. Work-up for sepsis noted. Cardiology with echocardiogram appreciated. Thank you for consultation, it is a pleasure to follow these cases with you D/w family at bedside Exam and interview performed with aid of bedside RN using telemedicine Time spent 20 min inc > 50% of time in face to face counseling Gregory Bear MD [facility] [phone] Attestations Medical Necessity Statement*: Eval for ESRD mgmt Coding Level of Care Code Acute Windows Systems Administrator for Chg Jules
[2021-06-01] MEDS: collagenase oint 30 gm 1 APPLIC TOPICAL (11:07)
[2021-06-01 11:40] LABS: Glucose Point of Care 188 mg/dL (70-110)
--- NOTE | 2021-06-01 12:36 | P.CONIM_ITS ---
Providers/Reason For Consult Consulting Physician/Specialty*: Dr. Srivastava, Cardiology Reason for Consult*: NSTEMI, h/o CAD Attending Physician: Maverick Omalley MD Primary Care Provider: Karuna Curtis MD History of Present Illness History of Present Illness Marie Bryant is a 80 year old female with PMHx of paroxysmal atrial fibrillation on Eliquis and amiodarone, CAD s/p CABG x4 , DM-2, hypertension, hyperlipidemia, obesity, ESRD-on PD, HLD, anemia of chronic disease, COPD, former smoker and obesity. She was hospitalized on 29 May 2021 with altered mental status and low blood pressure. For the last few weeks she has been having low blood pressure. At baseline she is wheelchair-bound and has a Yaquelin lift in hospital bed. She has been needing help when transferring from bed to chair more so than usual, weakness,fatigue and decreased appetite. Recently, her blood pressure was running 80s over 50s prior to arrival at home. On arrival to ED blood pressure 74/40, respiratory 26, pulse rate 66, temperature 97.8, pulse ox 100%. She was admitted with diagnosis of sepsis with possible source sacral decubitus ulcer and leg ulcer. She was placed on Levophed. CT head was done which showed low-attenuation change in right STUDENT MINISTRY PASTOR territory expanding to cortex involves posterior right temporal lobe measuring 3.5 x 3.5 cm compatible with subacute [employer]UDENT [employer]IST[employer] territory infarct, mild small vessel changes moderate parenchymal volume loss also appreciated. CTA head and neck showed no right STUDENT MINISTRY PASTOR occlusion. Severe, greater than 80%, stenosis of the proximal right internal carotid artery and Severe proximal right vertebral artery stenosis was noted. EKG showed atrial fibrillation, IVCD and ST-T wave abnormality, consider anterior ischemia. Baseline troponin T of 2 5072 hours to 38 and 6R 238. Patient denies having any chest discomfort. Blood cultures negative to date. She is on broad-spectrum antibiotics. She was just able to come off of Levophed earlier this morning. Given her echo findings and elevated troponin, I have been asked to evaluate the patient. Review of Systems Narrative: Generalized weakness with limited mobility Const: Reports: fatigue and malaise Card: Reports: irregular heart rhythm and edema; Denies: chest pain Resp: Reports: dyspnea; Denies: hemoptysis GI: Denies: hematochezia Musc: Reports: neck pain, back pain and joint pain Psych: Denies: anxiety or depression Meds/Allergies Home Medications and Allergies Home Medications Medication Instructions Recorded Confirmed Last Taken Type amiodarone 200 mg tablet 200 mg PO QAM 09/09/20 05/29/21 05/29/21 10:00 History apixaban 2.5 mg tablet 2.5 mg PO BID 09/09/20 05/29/21 05/29/21 10:00 History cholecalciferol (vitamin D3) 25 25 mcg PO DAILY 09/09/20 05/29/21 09/23/20 History mcg (1,000 unit) capsule mirtazapine 30 mg tablet 30 mg PO BEDTIME 09/09/20 05/29/21 Unknown History pantoprazole 20 mg tablet,delayed 20 mg PO DAILY@09/09/20 05/29/21 05/28/21 History release simvastatin 20 mg tablet 20 mg PO BEDTIME 09/09/20 05/29/21 09/23/20 History tramadol 50 mg tablet 50 mg PO Q6H PRN 09/09/20 05/29/21 09/23/20 History calcium acetate 667 mg PO TID 10/24/20 05/29/21 05/29/21 10:00 History docusate sodium 100 mg tablet 100 - 200 mg PO BEDTIME tab 04/14/21 05/29/21 Unknown History escitalopram oxalate 20 mg tablet 20 mg PO DAILY 04/14/21 05/29/21 Unknown History tizanidine 2 mg capsule 2 mg PO DAILY PRN cap 04/14/21 05/29/21 Unknown History vit B,C-folic ac 800 mcg-zinc 12.5 1 tab PO DAILY@12 04/14/21 05/29/21 05/28/21 History mg-selen-D3 2,000 unit-vit E tablet gentamicin See Rx Instructions .ROUTE .COMPLEX 05/29/21 05/29/21 Unknown History insulin aspart U-100 [Novolog See Rx Instructions .ROUTE .COMPLEX 05/29/21 05/29/21 05/29/21 History Flexpen U-100 Insulin] 9 UNITS ipratropium-albuterol 3 ml INHALATION .2-4 TIMES A DAY 05/29/21 05/29/21 Unknown History metoprolol tartrate 12.5 mg PO BID 05/29/21 05/29/21 05/29/21 10:00 History midodrine 5 mg PO TID 05/29/21 05/29/21 05/29/21 10:00 History 10 MG olopatadine [Pataday Twice Daily 1 drp OPHTHALMIC (EYE) BID 05/29/21 05/29/21 Unknown History Relief] polyethylene glycol 3350 [Miralax] 17 g PO DAILY PRN 05/29/21 05/29/21 Unknown History Allergies Allergy/AdvReac Type Severity Reaction Status Date / Time No Known Allergies Allergy Verified 05/29/21 14:10 Current Medications Current Medications Generic Name Dose Route Start Last Admin Trade Name Freq PRN Reason Stop Dose Admin Acetaminophen 650 mg 05/29/21 17:35 05/31/21 20:20 Acetaminophen 325 Mg Tablet PO 650 mg Q6H PRN Administration Mild/Mod Pain Or Temp >/= 101 Amiodarone HCl 200 mg 05/31/21 16:20 06/01/21 05:41 Amiodarone 200 Mg Tablet PO 200 mg QAM BLADIMIR Administration Atorvastatin Calcium 20 mg 05/29/21 21:00 05/31/21 20:19 Atorvastatin 40 Mg Tablet PO 20 mg BEDTIME BLADIMIR Administration Calcium Acetate 667 mg 05/29/21 21:00 06/01/21 08:20 Calcium Acetate 667 Mg Capsule PO 667 mg TID BLADIMIR Administration Clopidogrel Bisulfate 75 mg 05/30/21 09:00 06/01/21 08:21 Clopidogrel 75 Mg Tablet PO 75 mg DAILY BLADIMIR Administration Collagenase 1 applic 05/31/21 09:00 06/01/21 11:07 Collagenase Oint 30 Gm TOPICAL 1 applic DAILY BLADIMIR Administration Enoxaparin Sodium 90 mg 05/31/21 09:00 06/01/21 08:21 Enoxaparin 100 Mg/Ml Syringe 1 mg/kg (90 mg) 90 mg SUBCUT Administration DAILY BLADIMIR Hydrocortisone Sodium Succinate 100 mg 05/31/21 16:20 06/01/21 05:41 Hydrocortisone 100 Mg/2 Ml Sdv IVP 100 mg Q12H BLADIMIR Administration Norepinephrine Bitartrate 4 mg 254 mls @ 0 mls/hr 05/29/21 14:15 06/01/21 09:54 / Dextrose IV 0 mcg/min .Q0M BLADIMIR 0 mls/hr Titration Protocol Per Protocol Vancomycin HCl 750 mg/ Sodium 250 mls @ 250 mls/hr 01/01/22 14:00 05/30/21 17:17 Chloride IV Infused Q60H [facility]AD[facility] Infusion Piperacillin Sod/Tazobactam 50 mls @ 12.5 mls/hr 05/30/21 16:00 06/01/21 09:42 Sod 3.375 gm/ Sodium Chloride IV Infused Q12H [facility] Infusion Insulin Human Lispro 0 unit 05/29/21 18:00 06/01/21 08:21 Insulin Lispro 100 Unit/1 Ml SUBCUT 10 unit TIDWM BLADIMIR Administration Protocol Midodrine 10 mg 05/31/21 21:00 06/01/21 08:21 Midodrine 5 Mg Tablet PO 10 mg TID BLADIMIR Administration Non-Formulary Medication 1 tab 05/30/21 12:00 05/31/21 13:07 Vit B,A-Or-Luoi-Selen-Vit D3-E [Renaplex-D] PO Not Given DAILY@12 BLAD[facility]IR Pantoprazole Sodium 40 mg 05/30/21 12:00 05/31/21 14:[address] 40 Mg Tablet PO 40 mg DAILY@12 BLADIMIR Administration Senna/Docusate Sodium 1 tab 06/01/21 09:00 06/01/21 08:20 Sennosides-Docusate Tablet PO 1 tab DAILY BLADIMIR Administration Vitamin D 1,000 unit 05/30/21 09:00 06/01/21 08:21 Cholecalciferol (Vitamin D3) 1,000 Unit Tablet PO 1,000 unit DAILY BLADIMIR Administration PFSH Acute PFSH: Medical History Anemia Atrial fibrillation CAD (coronary artery disease) Chronic kidney disease Diabetes mellitus GERD (gastroesophageal reflux disease) HTN (hypertension) Hyperlipidemia Sepsis Surgical History Hx of tonsillectomy Peritoneal dialysis catheter in situ (09/24/20) S/P CABG x 4 S/P coronary artery stent placement Status post colonoscopy Status post right breast lumpectomy Family History Other Medical history non-contributory Social History Smoking and tobacco status: former smoker Vitals/I&O/Wt Last Vital Signs Temp 97.8 F 06/01/21 07:30 Pulse 88 06/01/21 11:00 Resp 21 H 06/01/21 11:00 BP 108/63 06/01/21 11:00 Pulse Ox 96 06/01/21 11:00 05/31/21 06/01/21 06/01/21 22:59 06:59 14:59 Intake Total 1681.521 / 3166.984 159.512 / 3326.496 1172.495 / 1172.495 Output Total 0 / 0 Balance 1681.521 / 3166.984 159.512 / 3326.496 1172.495 / 1172.495 Physical Exam Narrative: EXAM NARRATIVE: Gen: laying in bed, drowsy but arousable and answering questions appropriately Neck: No JVD appreciated RS: CTA anteriorly CVS: S1, S2 irregular Ext: Bilateral upper extremity bruising and edema noted. Lower extremity dressing and boot Data Micro: Micro: Microbiology 05/29/21 15:26 Gram Stain - Final Ankle - Abdominal Body Fluid Culture - Final 05/31/21 08:50 Gram Stain - Final Peritoneal Fluid Body Fluid Culture - Preliminary Other Data: Attestation for Other Data: I personally reviewed and interpreted the following: Other data: TTE (05/30/2021) CONCLUSIONS Normal left ventricular size borderline low LV ejection fraction of 50 to 55%. Mild diffuse hypokinesia of the septum. Moderate aortic valve stenosis, mean gradient 13.3 mmHg, BO 1.3 cm squared. The peak velocity was 2.56 m/s. Moderate mitral valve regurgitation. Biatrial enlargement -moderately dilated left atrium with mildly dilated right atrium [id number] aortic and tricuspid valve regurgitation. Mild pulmonary hypertension with an estimated pulmonary artery peak systolic pressure of 41 mmHg. There is no pericardial effusion. There are no intracardiac masses. Compared to the study from 09/20/2017, there is development of aortic valve stenosis and slight drop in the LV ejection fraction. EKG showed atrial fibrillation with RVR with aberrantly conducted beats. ST and T wave abnormality, consider anterior ischemia. Echocardiogram (08/2017) CONCLUSIONS Normal left ventricular cavity size. Mild left ventricular hypertrophy. Normal left ventricular systolic function. No regional wall motion abnormalities. Grade I/IV diastolic dysfunction (abnormal relaxation filling pattern), normal to mildly elevated filling pressures. Left ventricular ejection fraction is estimated at 60 %. Mildly increased right atrial size. Moderately increased left atrial size. There are no prior echocardiogram studies to compare. A&P Assessment and plan (1) CVA (cerebral vascular accident): Subacute CVA Status: Acute Qualifiers: CVA mechanism: unspecified Qualified Code(s): I63.9 - Cerebral infarction, unspecified (2) NSTEMI (non-ST elevated myocardial infarction): Type I versus type II with recent CVA -Patient denies having any symptoms and in my opinion she is too frail at this moment to undergo stress testing. -I do not think she would be able to cooperate and follow instruction adequately for stress test at this time. -I have decided to hold off on stress testing for today and revisit tomorrow. This was discussed with patient's Stoney and her daughter as well. 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 Please feel free to call with questions or concerns. Consult Attestations Medical Necessity Statement: As per primary team Time Spent in Patient Care: Greater than 35 minutes (>than 50% of time spent in counselling and/or direct pt care on unit) . Coding Level of Care Code Acute Geothermal Plant Manager for Chg Fwd Diagnoses CVA (cerebral vascular accident) I63.9 CVA mechanism: unspecified NSTEMI (non-ST elevated myocardial infarction) I21.4 Atrial fibrillation with RVR I48.91 End stage renal failure on dialysis N18.6; Z99.2 Hyperlipidemia E78.2 Hyperlipidemia type: mixed hyperlipidemia
--- NOTE | 2021-06-01 14:29 | PM.PN ---
Subjective Subjective: Interval history: Patient was seen and examined this morning, continues to have significant weakness, Continues to be drowsy, currently she has been off Levophed, left lower extremity ulcer Status post debridement. Heart rate is well controlled. Has remained afebrile overnight. Her other vitals and labs have been reviewed. Medications: Medication Review Details: Generic Name Dose Route Start Last Admin Trade Name Freq PRN Reason Stop Dose Admin Acetaminophen 650 mg 05/29/21 17:35 05/31/21 20:20 Acetaminophen 32 5 Mg Tablet PO 650 mg Q6H PRN Administration Mild/Mod Pain Or Temp >/= 101 Amiodarone HCl 200 mg 05/31/21 16:20 06/01/21 05:41 Amiodarone 200 M g Tablet PO 200 mg QAM BLADIMIR Administration Atorvastatin Calci um 20 mg 05/29/21 21:00 05/31/21 20:19 Atorvastatin 40 Mg Tablet PO 20 mg BEDTIME BLADIMIR Administration Calcium Acetate 667 mg 05/29/21 21:00 06/01/21 08:20 Calcium Acetate 667 Mg Capsule PO 667 mg TID BLADIMIR Administration Clopidogrel Bisulf ate 75 mg 05/30/21 09:00 06/01/21 08:21 Clopidogrel 75 M g Tablet PO 75 mg DAILY BLADIMIR Administration Collagenase 1 applic 05/31/21 09:00 06/01/21 11:07 Collagenase Oint 30 Gm TOPICAL 1 applic DAILY BLADIMIR Administration Enoxaparin Sodium 90 mg 05/31/21 09:00 06/01/21 08:21 Enoxaparin 100 M g/Ml Syringe 1 mg/kg (90 mg) 90 mg SUBCUT Administration DAILY BLADIMIR Hydrocortisone Sod ium Succinate 100 mg 05/31/21 16:20 06/01/21 05:41 Hydrocortisone 1 00 Mg/2 Ml Sdv IVP 100 mg Q12H BLADIMIR Administration Norepinephrine Bit artrate 4 mg 254 mls @ 0 mls/h r 05/29/21 14:15 06/01/21 09:54 / Dextrose IV 0 mcg/min .Q0M BLADIMIR 0 mls/hr Titration Protocol Per Protocol Vancomycin HCl 750 mg/ Sodium 250 mls @ 250 mls /hr 05/30/21 14:00 05/30/21 17:17 Chloride IV Infused Q60H BLADIMIR Infusion Piperacillin Sod/T azobactam 50 mls @ 12.5 mls /hr 05/30/21 16:00 06/01/21 09:42 Sod 3.375 gm/ So dium Chloride IV Infused Q12H [facility] Infusion Insulin Human Lisp ro 0 unit 05/29/21 18:00 06/01/21 13:22 Insulin Lispro 1 00 Unit/1 Ml SUBCUT 6 unit TIDWM [facility] Administration Protocol Midodrine 10 mg 05/31/21 21:00 06/01/21 08:21 Midodrine 5 Mg T ablet PO 10 mg TID [facility] Administration Non-Formulary Medi cation 1 tab 05/30/21 12:00 06/01/21 13:20 Vit B,C-Fa-Zinc- Selen-Vit D3-E [Re naplex-D] PO Not Given DAILY@12 [facility] Pantoprazole Sodiu m 40 mg 05/30/21 12:00 05/31/21 14:[address] 40 Mg Tablet PO 40 mg DAILY@12 [facility] Administration Senna/Docusate Sod ium 1 tab 06/01/21 09:00 06/01/21 08:20 Sennosides-Docus ate Tablet PO 1 tab DAILY [facility] Administration Vitamin D 1,000 unit 05/30/21 09:00 06/01/21 08:21 Cholecalciferol (Vitamin D3) 1,000 Unit Tablet PO 1,000 unit DAILY [facility] Administration Vitals/I&O/Wt Last Vital Signs Temp 97.8 F 06/01/21 07:30 Pulse 87 06/01/21 14:14 Resp 18 06/01/21 14:00 BP 104/74 06/01/21 14:00 Pulse Ox 98 06/01/21 14:00 05/31/21 06/01/21 06/01/21 22:59 06:59 14:59 Intake Total 1681.521 / 3166.984 159.512 / 3326.496 1172.495 / 1172.495 Output Total 0 / 0 Balance 1681.521 / 3166.984 159.512 / 3326.496 1172.495 / 1172.495 Physical Exam Narrative: EXAM NARRATIVE: Alert and Awake HENMT: COMMON NORMALS: normocephalic and atraumatic HEAD & SCALP: normocephalic and atraumatic Resp: COMMON NORMALS: clear to auscultation bilaterally EFFORT & INSPECTION: Yes symmetric chest movement AUSCULTATION: clear to auscultation bilaterally Cardio: COMMON NORMALS: regular rate, regular rhythm, S1 normal heart sound present, S2 normal heart sound present, No gallops present (Cardio), No murmurs present (Cardio), No rub (Cardio) and Peripheral pulses 2+ throughout RATE: regular rate RHYTHM: regular rhythm HEART SOUNDS: S1 normal heart sound present and S2 normal heart sound present PERIPHERAL PULSES: Peripheral pulses 2+ throughout GI: COMMON NORMALS: Normal to inspection, nondistended, normoactive bowel sounds present, Soft to palpation, non-tender, No hepatosplenomegaly present and no masses AUSCULTATION: Yes normoactive bowel sounds PALPATION: Yes Soft to palpation and Yes No hepatosplenomegaly present RECTAL EXAM: deferred Extremity: COMMON NORMALS: no clubbing, cyanosis or edema and no pedal edema Data : 06/01/21 03:22 06/01/21 03:22 Micro: Microbiology 05/29/21 15:26 Gram Stain - Final Ankle - Abdominal Body Fluid Culture - Final 05/31/21 08:50 Gram Stain - Final Peritoneal Fluid Body Fluid Culture - Preliminary A&P Assessment and plan (1) Acute hypokalemia: Status: Acute (2) Carotid artery disease: Status: Acute (3) Hypotension: Status: Acute (4) Bedbound: Status: Acute (5) CVA (cerebral vascular accident): Status: Acute (6) GERD (gastroesophageal reflux disease): Status: Acute (7) End stage renal failure on dialysis: Status: Acute (8) Chronic anticoagulation: Status: Acute (9) Atrial fibrillation with RVR: Status: Acute (10) CAP (community acquired pneumonia): Status: Acute (11) Sacral ulcer: Status: Acute (12) Ulcer of left heel: Status: Acute Additional A&P Information SUBACUTE CVA Evident on CT head on admit not a candidate of TPA Pupillary asymmetry Carotid rt 80% stenosis. Cardiothoracic surgery was on consult: They intend to consider CEA in future once he is more stable. Stress test currently on hold: Continue statin , Plavix, Lovenox, resume Eliquis on discharge AFib RVR Continue her AV wilman blocking agnets for now It will get better when we turn off levophed on Lovenox renally dosed Appreciate cardiology input Septic shock related to B/L heel ulcer. CT bilateral Ankle: Consistent with cellulitis. S/p: Left pressure ulcer debridement. peritoneal fluid sent twice : - no signs of infection TSH and random cortisol normal Continue VANC and zosyn Was on levo. Continue hydrocortisone stress dose. Albumin has been discontinued. HYpokalmeia :- improved hypomagnesemia:- improved TYpe 2 WI STress test on Tuesday Guarded prognosis bed bound full code renal Diet npo after MN Attestations Medical Necessity Statement*: Patient is to be in hospital for management of above defined problems Time Spent in Patient Care: 16 - 35 minutes (>than 50% of time spent in counselling and/or direct pt care on unit). Critical Care Time: Critical Care Time (min): 45 Other Attestations: The high probability of a clinically significant, sudden or life threatening deterioration of the patient's [] system(s) required my full and direct attention, intervention and personal management. The critical care time is as shown. This time is in addition to time spent performing any reported procedures but includes the following: [x] Data and vital sign review and interpretation [x] Patient assessment, examination and intervention [x] Documentation [x] Medication orders and management Coding Level of Care Code Acute E Business Specialist for Chg Fwd Exam Detailed Diagnoses Acute hypokalemia E87.6 Carotid artery disease I77.9 Hypotension I95.9 Bedbound Z74.01 CVA (cerebral vascular accident) I63.9 GERD (gastroesophageal reflux disease) K21.9 End stage renal failure on dialysis N18.6; Z99.2 Chronic anticoagulation Z79.01 Atrial fibrillation with RVR I48.91 CAP (community acquired pneumonia) J18.9 Sacral ulcer L98.429 Ulcer of left heel L97.429
[2021-06-01 17:22] LABS: Glucose Point of Care 140 mg/dL (70-110)
[2021-06-01] MEDS: dronabinol 2.5 mg Capsule PO (17:24)
--- NOTE | 2021-06-01 17:35 | PM.OP ---
Operative Report Date of procedure: June 01, 2021 Pre-op Diagnosis: Pressure ulcer left calcaneus Post-op diagnosis: same Procedure Done: Curette debridement pressure ulcer left calcaneus Wound measurements 2 cm in width x 2 cm in length x 1 cm in depth post debridement Pathology: none sent Surgeon: Shiv Mendoza Anesthesia: None Complications: None Condition: stable Disposition: ICU Brief History: 80-year-old female hospitalized with CVA and generalized deconditioning. Has a pressure ulcer of the left calcaneus. I recommend local debridement to remove a thick exudative layer. Details the risk of the procedure were discussed with Ms. Guerrero and her family who gave verbal consent for bedside debridement. Procedure: 4 mm curette was utilized for local debridement of this exudative ulcer bed of the lateral aspect of the left calcaneus. Periwound callus was also mildly debrided. Extent layer was removed down to a viable bed with only modest bleeding and modest discomfort. She tolerated debridement well. Post debridement measurements are 2 cm and with by 2 cm in length by 1 cm in depth. There was no exposed bone or fascia. I recommend we continue wet-to-dry dressing changes twice daily. Pressure relieving maneuvers were discussed with nursing service and with family and patient.
[2021-06-01] MEDS: acetaminophen 325 mg Tablet 650 MG PO (18:08)
--- NOTE | 2021-06-01 18:24 | PC.NURSE ---
Shift Note Frequent safety and comfort rounds continue. Orders and/or nursing care completed as indicated. Patient monitored for response to intervention and treatment(s). Education provided includes Current disease process, current plan of care, scheduled stress test, CT results, medication education upon administration, and importance of position changes to prevent further progression of pressure ulcers.Patient and family at bedside verbalized understanding. Patent completely off levophed today and blood pressure maintained steadily with a map above 65.
[2021-06-01] MEDS: atorvastatin 40 mg Tablet 20 MG PO (20:12)
[2021-06-02] VITALS (48 sets, daily range): BP systolic 91–141; BP diastolic 53–83; PULSE 83–115; RESP 17–40; TEMP 36.6–37.1; O2SAT 91–100
[2021-06-02] MEDS: vancomycin 750 MG in sodium chloride 0.9% 250 ML 250 MG IV (02:44)
[2021-06-02] MEDS: hydrocortisone 100 mg/2 mL SDV IVP ×2 (04:07→16:22)
[2021-06-02] MEDS: piperacillin-tazobactam 3.375 GM in sodium chloride 0.9% (plus) 50 ML IV ×2 (04:07→16:22)
[2021-06-02 04:35] LABS: Alanine Aminotransferase 17 U/L (0-33); Albumin Level 3.1 g/dL (3.5-5.2); Alkaline Phosphatase 87 IU/L (35-105); Anion Gap 21.3 (5-19); Aspartate Amino Transferase 21 U/L (0-32); Blood Urea Nitrogen 32 mg/dL (8-23); Calcium 9.1 mg/dL (8.5-10.5); Carbon Dioxide 17 mmol/L (22-29); Chloride 100 mmol/L (98-107); Globulin 1.8 g/dL (1.3-4.6); Glucose 154 mg/dL (65-115); Osmolality Calculated 286 mOsm/kg (285-295); Potassium 5.3 mmol/L (3.5-5.1); Sodium 133 mmol/L (136-145); Total Bilirubin 0.4 mg/dL (0.15-1.2); Total Protein 4.9 g/dL (6.6-8.7)
[2021-06-02 04:43] LABS: Hematocrit 28.2 % (37.0-47.0); Mean Corpuscular HGB Conc 31.9 g/dL (30.0-36.0); Mean Corpuscular Hemoglobin 35.9 pg (28.0-34.0); Mean Corpuscular Volume 112.4 fl (81-99); Mean Platelet Volume 11.8 fL (7.4-10.4); Platelet Count 103 10^3/cmm (130-400); Red Blood Count 2.51 10^6/uL (4.1-5.3); Red Cell Distribution Width 22.6 % (12.1-15.1); White Blood Count 13.8 10^3/uL (4.0-10.0)
--- NOTE | 2021-06-02 06:00 | PC.NURSE ---
Shift Note Frequent safety and comfort rounds continue. Orders and/or nursing care completed as indicated. Patient monitored for response to intervention and treatment(s). Education provided includes medication and oxygen requirements. Patient and family verbalize understanding of teaching. Patient had an uneventful shift. She remains in a-fib, on 2LNC, and has several wounds.lease see wound assessment for further detail. Patient slept throughout the night, no complaints of pain. Will continue to monitor.
[2021-06-02] MEDS: amiodarone 200 mg Tablet PO (06:07)
[2021-06-02 07:08] LABS: Slide Review Slide Review Perform
[2021-06-02 07:11] LABS: Lymphocytes 2 %; Segmented Neutrophils 70 %; Total Cells Counted 100 (0-100)
[2021-06-02 07:12] LABS: Eosinophils 0 %; Macrocytosis 1+; Platelet Estimate Decreased (Normal); Poikilocytosis 2+
[2021-06-02 07:38] LABS: Glucose Point of Care 200 mg/dL (70-110)
[2021-06-02] MEDS: insulin lispro 100 unit/1 mL SUBCUT ×2 (07:50→17:14)
[2021-06-02] MEDS: midodrine 5 mg TABLET 10 MG PO ×3 (09:03→20:31)
[2021-06-02] MEDS: calcium acetate 667 mg Capsule PO ×2 (09:03→20:31)
[2021-06-02] MEDS: clopidogrel 75 mg Tablet PO (09:03)
[2021-06-02] MEDS: cholecalciferol (vitamin D3) 1,000 unit Tablet 1000 UNIT PO (09:04)
[2021-06-02] MEDS: enoxaparin 100 mg/mL Syringe 90 MG SUBCUT (09:04)
[2021-06-02] MEDS: collagenase oint 30 gm 1 APPLIC TOPICAL (09:04)
[2021-06-02 11:06] LABS: Glucose Point of Care 109 mg/dL (70-110)
[2021-06-02] MEDS: pantoprazole DR 40 mg Tablet PO (13:12)
[2021-06-02] MEDS: sodium bicarbonate 650 mg Tablet PO ×2 (13:12→17:14)
--- NOTE | 2021-06-02 14:00 | P.PN_ITS ---
Subjective Subjective: Interval history: No acute events overnight, remains off levophed Medications: Reviewed: Yes Vitals/I&O/Wt Last Vital Signs Temp 98.8 F 06/02/21 07:30 Pulse 95 06/02/21 12:30 Resp 23 H 06/02/21 12:30 BP 120/66 06/02/21 12:30 Pulse Ox 97 06/02/21 12:30 06/01/21 06/02/21 06/02/21 22:59 06:59 14:59 Intake Total 393 / 1565.495 350 / 1915.495 50 / 50 Output Total 0 / 0 Balance 393 / 1565.495 350 / 1915.495 50 / 50 Physical Exam Narrative: EXAM NARRATIVE: Gen: laying in bed, No acute distress Neck: No JVD appreciated RS: CTA anteriorly CVS: S1, S2 irregular Ext: Bilateral upper extremity bruising and edema noted. 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 Status: Acute Qualifiers: CVA mechanism: unspecified Qualified Code(s): I63.9 - Cerebral infarction, unspecified (2) NSTEMI (non-ST elevated myocardial infarction): Type I versus type II with recent CVA -Patient denies having any symptoms and in my opinion she is too frail at this moment to undergo stress testing. -I do not think she would be able to cooperate and follow instruction adequately for stress test at this time. -I have decided to hold off on stress testing for now. May consider outpatient stress test based on clinical improvement. -This was discussed with patient's Stoney and her daughter as well. -May stop therapeutic lovenox and restart eliquis and start ASA 81 mg once feasible. 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 Please feel free to call with questions or concerns. Attestations Medical Necessity Statement*: As per primary team Time Spent in Patient Care: 16 - 35 minutes (>than 50% of time spent in counselling and/or direct pt care on unit) . Coding Level of Care Code Acute Refrigerator Cabinetmaker for Yulia Championd Diagnoses CVA (cerebral vascular accident) I63.9 CVA mechanism: unspecified NSTEMI (non-ST elevated myocardial infarction) I21.4 Atrial fibrillation with RVR I48.91 End stage renal failure on dialysis N18.6; Z99.2 Hyperlipidemia E78.2 Hyperlipidemia type: mixed hyperlipidemia
--- NOTE | 2021-06-02 14:17 | PC.NURSE ---
Family at bedside requests to speak with Dr. Omalley about possibility of discharging patent to home. Dr. Omalley notified and plans to speak with family.
--- NOTE | 2021-06-02 14:53 | PM.PN ---
Subjective Subjective: Interval history: She appears very weak, very feeble. Peritoneal dialysis is uneventful and the slight pink tinge is now resolving. No other acute new issues. She is now off the vasopressor agents. Medications: Medication Review Details: Generic Name Dose Route Start Last Admin Trade Name Freq PRN Reason Stop Dose Admin Acetaminophen 650 mg 05/29/21 17:35 05/31/21 20:20 Acetaminophen 32 5 Mg Tablet PO 650 mg Q6H PRN Administration Mild/Mod Pain Or Temp >/= 101 Amiodarone HCl 200 mg 05/31/21 16:20 06/01/21 05:41 Amiodarone 200 M g Tablet PO 200 mg QAM BLADIMIR Administration Atorvastatin Calci um 20 mg 05/29/21 21:00 05/31/21 20:19 Atorvastatin 40 Mg Tablet PO 20 mg BEDTIME BLADIMIR Administration Calcium Acetate 667 mg 05/29/21 21:00 06/01/21 08:20 Calcium Acetate 667 Mg Capsule PO 667 mg TID BLADIMIR Administration Clopidogrel Bisulf ate 75 mg 05/30/21 09:00 06/01/21 08:21 Clopidogrel 75 M g Tablet PO 75 mg DAILY BLADIMIR Administration Collagenase 1 applic 05/31/21 09:00 06/01/21 11:07 Collagenase Oint 30 Gm TOPICAL 1 applic DAILY BLADIMIR Administration Enoxaparin Sodium 90 mg 05/31/21 09:00 06/01/21 08:21 Enoxaparin 100 M g/Ml Syringe 1 mg/kg (90 mg) 90 mg SUBCUT Administration DAILY BLADIMIR Hydrocortisone Sod ium Succinate 100 mg 05/31/21 16:20 06/01/21 05:41 Hydrocortisone 1 00 Mg/2 Ml Sdv IVP 100 mg Q12H BLADIMIR Administration Norepinephrine Bit artrate 4 mg 254 mls @ 0 mls/h r 05/29/21 14:15 06/01/21 09:54 / Dextrose IV 0 mcg/min .Q0M BLADIMIR 0 mls/hr Titration Protocol Per Protocol Vancomycin HCl 750 mg/ Sodium 250 mls @ 250 mls /hr 05/30/21 14:00 05/30/21 17:17 Chloride IV Infused Q60H [facility]AD[facility] Infusion Piperacillin Sod/T azobactam 50 mls @ 12.5 mls /hr 05/30/21 16:00 06/01/21 09:42 Sod 3.375 gm/ So dium Chloride IV Infused Q12H [facility] Infusion Insulin Human Lisp ro 0 unit 05/29/21 18:00 06/01/21 13:22 Insulin Lispro 1 00 Unit/1 Ml SUBCUT 6 unit TIDWM [facility] Administration Protocol Midodrine 10 mg 05/31/21 21:00 06/01/21 08:21 Midodrine 5 Mg T ablet PO 10 mg TID BLADIMIR Administration Non-Formulary Medi cation 1 tab 05/30/21 12:00 06/01/21 13:20 Vit B,C-Fa-Zinc- Selen-Vit D3-E [Re naplex-D] PO Not Given DAILY@12 [facility] Pantoprazole Sodiu m 40 mg 05/30/21 12:00 05/31/21 14:[address] 40 Mg Tablet PO 40 mg DAILY@12 [facility] Administration Senna/Docusate Sod ium 1 tab 06/01/21 09:00 06/01/21 08:20 Sennosides-Docus ate Tablet PO 1 tab DAILY [facility] Administration Vitamin D 1,000 unit 05/30/21 09:00 06/01/21 08:21 Cholecalciferol (Vitamin D3) 1,000 Unit Tablet PO 1,000 unit DAILY [facility] Administration Vitals/I&O/Wt Last Vital Signs Temp 98.8 F 06/02/21 07:30 Pulse 109 H 06/02/21 14:43 Resp 27 H 06/02/21 14:00 BP 124/70 06/02/21 14:00 Pulse Ox 96 06/02/21 14:00 06/01/21 06/02/21 06/02/21 22:59 06:59 14:59 Intake Total 393 / 1565.495 350 / 1915.495 50 / 50 Output Total 0 / 0 Balance 393 / 1565.495 350 / 1915.495 50 / 50 Physical Exam Narrative: EXAM NARRATIVE: Constitutional: Drowsy HEENT: Wet mucosa, no jvp, non icteric Lungs: Bilaterally clear without discernible wheeze or rales in all lung zones CVS: S1 S2, no murmurs Abdo: Soft, BS ok, PD exit site looks good Ext 4: Minimal edema, peripheral perfusion with no cyanosis Neurological: Grossly non-focal Data : 06/02/21 03:30 06/02/21 03:30 Micro: Microbiology 05/31/21 08:50 Gram Stain - Final Peritoneal Fluid Body Fluid Culture - Preliminary 05/29/21 15:26 Gram Stain - Final Ankle - Abdominal Body Fluid Culture - Final A&P Additional A&P Information 1. ESRD To continue peritoneal dialysis CCPD with 10 on the cycler with 4 exchanges of 1.5% (yellow), 1950 mL per exchange. Empty during the day. Being managed by her daughter Dose medication for GFR less than 15 on PD Strict I's and O's 2. Altered mental status CT with findings of subacute TRADE CLERK territory CVA Leukocytosis noted with unclear source of infection, unclear infectious source Hemodynamic lability also noted 3. Chemistry We will add oral sodium bicarbonate tablets to help the acidosis, bring down the potassium a little. 4. Hemodynamics Currently off Levophed and IV hydration. Work-up for sepsis noted. Cardiology with echocardiogram appreciated. Thank you for consultation, it is a pleasure to follow these cases with you D/w family at bedside Exam and interview performed with aid of bedside RN using telemedicine Time spent 20 min inc > 50% of time in face to face counseling Gregory Bear MD [facility] [phone] Attestations Medical Necessity Statement*: Eval for PD mgmt Coding Level of Care Code Acute Horticulture Supervisor for Chg Fwd
[2021-06-02] MEDS: dronabinol 2.5 mg Capsule PO (16:22)
[2021-06-02 17:11] LABS: Glucose Point of Care 147 mg/dL (70-110)
--- NOTE | 2021-06-02 18:27 | P.PN_ITS ---
Subjective Subjective: Interval history: Patient was seen and examined this morning, continue to be off Levophed has maintained a good MAP. Continue to be on midodrine 10 mg p.o. 3 times daily. We will decrease the dose of hydrocortisone to 50 mg every 12 hours from a.m. Continue to be in A. fib: With heart rate in upper 90s to 110s. Her other vitals and labs have been reviewed. Medications: Medication Review Details: Generic Name Dose Route Start Last Admin Trade Name Kelly PRN Reason Stop Dose Admin Acetaminophen 650 mg 05/29/21 17:35 05/31/21 20:20 Acetaminophen 32 5 Mg Tablet PO 650 mg Q6H PRN Administration Mild/Mod Pain Or Temp >/= 101 Amiodarone HCl 200 mg 05/31/21 16:20 06/01/21 05:41 Amiodarone 200 M g Tablet PO 200 mg QAM BLADIMIR Administration Atorvastatin Calci um 20 mg 05/29/21 21:00 05/31/21 20:19 Atorvastatin 40 Mg Tablet PO 20 mg BEDTIME BLADIMIR Administration Calcium Acetate 667 mg 05/29/21 21:00 06/01/21 08:20 Calcium Acetate 667 Mg Capsule PO 667 mg TID BLADIMIR Administration Clopidogrel Bisulf ate 75 mg 05/30/21 09:00 06/01/21 08:21 Clopidogrel 75 M g Tablet PO 75 mg DAILY BLADIMIR Administration Collagenase 1 applic 05/31/21 09:00 06/01/21 11:07 Collagenase Oint 30 Gm TOPICAL 1 applic DAILY BLADIMIR Administration Enoxaparin Sodium 90 mg 05/31/21 09:00 06/01/21 08:21 Enoxaparin 100 M g/Ml Syringe 1 mg/kg (90 mg) 90 mg SUBCUT Administration DAILY BLADIMIR Hydrocortisone Sod ium Succinate 100 mg 05/31/21 16:20 06/01/21 05:41 Hydrocortisone 1 00 Mg/2 Ml Sdv IVP 100 mg Q12H BLADIMIR Administration Norepinephrine Bit artrate 4 mg 254 mls @ 0 mls/h r 05/29/21 14:15 06/01/21 09:54 / Dextrose IV 0 mcg/min .Q0M BLADIMIR 0 mls/hr Titration Protocol Per Protocol Vancomycin HCl 750 mg/ Sodium 250 mls @ 250 mls /hr 05/30/21 14:00 05/30/21 17:17 Chloride IV Infused Q60H [facility]AD[facility] Infusion Piperacillin Sod/T azobactam 50 mls @ 12.5 mls /hr 05/30/21 16:00 06/01/21 09:42 Sod 3.375 gm/ So dium Chloride IV Infused Q12H [facility] Infusion Insulin Human Lisp ro 0 unit 05/29/21 18:00 06/01/21 13:22 Insulin Lispro 1 00 Unit/1 Ml SUBCUT 6 unit TIDWM [facility] Administration Protocol Midodrine 10 mg 05/31/21 21:00 06/01/21 08:21 Midodrine 5 Mg T ablet PO 10 mg TID [facility] Administration Non-Formulary Medi cation 1 tab 05/30/21 12:00 06/01/21 13:20 Vit B,C-Fa-Zinc- Selen-Vit D3-E [Re naplex-D] PO Not Given DAILY@12 [facility] Pantoprazole Sodiu m 40 mg 05/30/21 12:00 05/31/21 14:[address] 40 Mg Tablet PO 40 mg DAILY@12 [facility] Administration Senna/Docusate Sod ium 1 tab 06/01/21 09:00 06/01/21 08:20 Sennosides-Docus ate Tablet PO 1 tab DAILY [facility] Administration Vitamin D 1,000 unit 05/30/21 09:00 06/01/21 08:21 Cholecalciferol (Vitamin D3) 1,000 Unit Tablet PO 1,000 unit DAILY [facility] Administration Vitals/I&O/Wt Last Vital Signs Temp 98.8 F 06/02/21 07:30 Pulse 110 H 06/02/21 16:30 Resp 26 H 06/02/21 16:30 BP 122/74 06/02/21 16:30 Pulse Ox 96 06/02/21 16:30 06/02/21 06/02/21 06/02/21 06:59 14:59 22:59 Intake Total 350 / 5.495 50 / 50 Output Total 0 / 0 Balance 350 / 5.495 50 / 50 Physical Exam Narrative: EXAM NARRATIVE: Alert and Awake HENMT: COMMON NORMALS: normocephalic and atraumatic HEAD & SCALP: normocephalic and atraumatic Resp: COMMON NORMALS: clear to auscultation bilaterally EFFORT & INSPECTION: Yes symmetric chest movement AUSCULTATION: clear to auscultation bilaterally Cardio: COMMON NORMALS: regular rate, regular rhythm, S1 normal heart sound present, S2 normal heart sound present, No gallops present (Cardio), No murmurs present (Cardio), No rub (Cardio) and Peripheral pulses 2+ throughout RATE: regular rate RHYTHM: regular rhythm HEART SOUNDS: S1 normal heart sound present and S2 normal heart sound present PERIPHERAL PULSES: Peripheral pulses 2+ throughout GI: COMMON NORMALS: Normal to inspection, nondistended, normoactive bowel sounds present, Soft to palpation, non-tender, No hepatosplenomegaly present and no masses AUSCULTATION: Yes normoactive bowel sounds PALPATION: Yes Soft to palpation and Yes No hepatosplenomegaly present RECTAL EXAM: deferred Extremity: COMMON NORMALS: no clubbing, cyanosis or edema and no pedal edema Data : 06/02/21 03:30 06/02/21 03:30 Micro: Microbiology 05/31/21 08:50 Gram Stain - Final Peritoneal Fluid Body Fluid Culture - Preliminary A&P Assessment and plan (1) Acute hypokalemia: Status: Acute (2) Carotid artery disease: Status: Acute (3) Hypotension: Status: Acute (4) Bedbound: Status: Acute (5) CVA (cerebral vascular accident): Status: Acute Qualifiers: CVA mechanism: unspecified Qualified Code(s): I63.9 - Cerebral infarction, unspecified (6) GERD (gastroesophageal reflux disease): Status: Acute (7) End stage renal failure on dialysis: Status: Acute (8) Chronic anticoagulation: Status: Acute (9) Atrial fibrillation with RVR: Status: Acute (10) CAP (community acquired pneumonia): Status: Acute (11) Sacral ulcer: Status: Acute (12) Ulcer of left heel: Status: Acute Additional A&P Information SUBACUTE CVA Evident on CT head on admit not a candidate of TPA Pupillary asymmetry Carotid rt 80% stenosis. Cardiothoracic surgery was on consult: They intend to consider CEA in future once he is more stable. Stress test currently on hold: Continue statin , Plavix, Lovenox, resume Eliquis on discharge AFib RVR Continue her AV wilman blocking agnets for now It will get better when we turn off levophed on Lovenox renally dosed Appreciate cardiology input Septic shock related to B/L heel ulcer. CT bilateral Ankle: Consistent with cellulitis. S/p: Left pressure ulcer debridement. peritoneal fluid sent twice : - no signs of infection TSH and random cortisol normal Continue VANC and zosyn Was on levo. Continue hydrocortisone stress dose. Albumin has been discontinued. HYpokalmeia :- improved hypomagnesemia:- improved TYpe 2 CO STress test on Tuesday Guarded prognosis bed bound full code renal Diet npo after MN Attestations Medical Necessity Statement*: Patient is to be in hospital for management of sepsis. Coding Level of Care Code Acute Front End Engineer for [facility] Fwd Diagnoses Acute hypokalemia E87.6 Carotid artery disease I77.9 Hypotension I95.9 Bedbound Z74.01 CVA (cerebral vascular accident) I63.9 CVA mechanism: unspecified GERD (gastroesophageal reflux disease) K21.9 End stage renal failure on dialysis N18.6; Z99.2 Chronic anticoagulation Z79.01 Atrial fibrillation with RVR I48.91 CAP (community acquired pneumonia) J18.9 Sacral ulcer L98.429 Ulcer of left heel L97.429
--- NOTE | 2021-06-02 18:34 | PC.NURSE ---
Shift Note Frequent safety and comfort rounds continue. Orders and/or nursing care completed as indicated. Patient monitored for response to intervention and treatment(s). Education provided includes current plan of care, medication education upon administration, oxygen safety, importance of position changes, and would care. Patient and family at bedside verbalized understanding of teachings. Overall uneventful shift. Patient remains in a-fib.
[2021-06-02] MEDS: atorvastatin 40 mg Tablet 20 MG PO (20:31)
[2021-06-03] VITALS (9 sets, daily range): BP systolic 99–121; BP diastolic 63–75; PULSE 89–112; RESP 16–32; TEMP 36.4–36.9; O2SAT 85–99
--- NOTE | 2021-06-03 01:30 | PC.NURSE ---
Transfer Note Patient transferred to med-surg room 262 from ICU via bed. Handoff report given to ELLE Coats. Patient oriented to environment and equipment. Covering service notified. Orders reviewed and will continue to monitor. Family and/or surgical device sales representative notified.
--- NOTE | 2021-06-03 02:04 | PC.NURSE ---
Transfer report received from Lisa RN/ICU. Patient in bed/resting. No s/s of pain or discomfort. Daughter Leedawn at bedside. PD instilling/daughter manages. Patient non ambulatory /uses w/c at home. Skin tears BUE/ steri strips in place. Weeping present BUE. Right hand extensive black/purplish present. Bandage in place LLE/ post op debridement 06/01/21. Wound on coccyx /dressing in place. Multiple bruising BUE/BLE. O2 2L NC. IV LUE/SL. No needs voiced at this time.
[2021-06-03] MEDS: piperacillin-tazobactam 3.375 GM in sodium chloride 0.9% (plus) 50 ML IV (04:02)
[2021-06-03 06:11] LABS: Basophils # 0.1 10^3/uL (0.0-0.1); Basophils % 0.5 %; Hematocrit 28.8 % (37.0-47.0); Hemoglobin 9.1 g/dL (11.5-15.3); Lymphocytes % 7.2 %; Mean Corpuscular HGB Conc 31.6 g/dL (30.0-36.0); Mean Corpuscular Volume 110.8 fl (81-99); Mean Platelet Volume 11.1 fL (7.4-10.4); Monocytes # 0.7 10^3/uL (0.2-0.9); Monocytes % 5.3 %; Neutrophils # 9.97 10^3/uL (1.8-7.7); Neutrophils % 74.8 %; Nucleated Red Blood Cells % 0.2 %; Platelet Count 140 10^3/cmm (130-400); White Blood Count 13.3 10^3/uL (4.0-10.0)
[2021-06-03 06:28] LABS: Alanine Aminotransferase 18 U/L (0-33); Albumin Level 2.9 g/dL (3.5-5.2); Alkaline Phosphatase 89 IU/L (35-105); Anion Gap 20.6 (5-19); Aspartate Amino Transferase 20 U/L (0-32); Blood Urea Nitrogen 33 mg/dL (8-23); Carbon Dioxide 17 mmol/L (22-29); Chloride 99 mmol/L (98-107); Globulin 1.7 g/dL (1.3-4.6); Glucose 168 mg/dL (65-115); Osmolality Calculated 285 mOsm/kg (285-295); Potassium 4.6 mmol/L (3.5-5.1); Sodium 132 mmol/L (136-145); Total Bilirubin 0.4 mg/dL (0.15-1.2); Total Protein 4.6 g/dL (6.6-8.7)
[2021-06-03 06:43] LABS: Glucose Point of Care 193 mg/dL (70-110)
[2021-06-03] MEDS: dronabinol 2.5 mg Capsule PO (06:44)
[2021-06-03] MEDS: amiodarone 200 mg Tablet PO (06:44)
[2021-06-03] MEDS: hydrocortisone 100 mg/2 mL SDV 50 MG IVP (06:54)
[2021-06-03 07:02] LABS: Slide Review Slide Review Perform
[2021-06-03] MEDS: sodium bicarbonate 650 mg Tablet PO (08:26)
[2021-06-03] MEDS: clopidogrel 75 mg Tablet PO (08:26)
[2021-06-03] MEDS: midodrine 5 mg TABLET 10 MG PO (08:26)
[2021-06-03] MEDS: calcium acetate 667 mg Capsule PO (08:26)
[2021-06-03] MEDS: cholecalciferol (vitamin D3) 1,000 unit Tablet 1000 UNIT PO (08:26)
[2021-06-03] MEDS: insulin lispro 100 unit/1 mL SUBCUT (08:27)
[2021-06-03] MEDS: enoxaparin 100 mg/mL Syringe 90 MG SUBCUT (08:27)
[2021-06-03] MEDS: collagenase oint 30 gm 1 APPLIC TOPICAL (08:28)
--- NOTE | 2021-06-03 11:35 | PM.DCS ---
Discharge Providers Date of Admission: 05/29/21 15:27 Date of Discharge: June 03, 2021 Attending Provider at Admission: Nancy Malave MD Attending Provider at Discharge: Maverick Omalley MD Primary Care Provider: Karuna Curtis MD Diagnoses at Discharge Discharge Diagnosis (1) Acute hypokalemia: (2) Carotid artery disease: (3) Hypotension: (4) Bedbound: (5) CVA (cerebral vascular accident): Qualifiers: CVA mechanism: unspecified Qualified Code(s): I63.9 - Cerebral infarction, unspecified (6) GERD (gastroesophageal reflux disease): (7) End stage renal failure on dialysis: (8) Chronic anticoagulation: (9) Atrial fibrillation with RVR: (10) CAP (community acquired pneumonia): (11) Sacral ulcer: (12) Ulcer of left heel: Reason for Visit Reason for Visit: DECREASED RESPONSIVENESS/ DECREASED BP Hospital Course Hospital Course Marie Bryant is a 80 year old female with past medical history of CABG x4, atrial fibrillation on Eliquis, peritoneal dialysis, diabetes mellitus, COPD, chronic congestive heart failure, former smoker who presented to the hospital today via EMS for complaint of low blood pressure. Further work-up during the hospital stay Showed subacute CVA: CT head wo con: Low-attenuation change in the right PIZZA COOK territory extending to the cortex involves the posterior right temporal lobe measuring 3.5 x 3.5 cm compatible with subacute PIZZA COOK territory infarct.CT angio headneck: Severe, greater than 80%, stenosis of the proximal right internal carotid artery. Mild left carotid stenosis. Severe proximal right vertebral artery stenosis. Mild proximal left vertebral artery stenosis. CV. echo complete: Normal left ventricular size borderline low LV ejection fraction of 50 to 55%. Mild diffuse hypokinesia of the septum. Moderate aortic valve stenosis, mean gradient 13.3 mmHg, BO 1.3 cm squared. The peak velocity was 2.56 m/s. Moderate mitral valve regurgitation. Biatrial enlargement -moderately dilated left atrium with mildly dilated right atrium Indo-kx-yvjoceli aortic and tricuspid valve regurgitation. Mild pulmonary hypertension with an estimated pulmonary artery peak systolic pressure of 41 mmHg. Patient was not a candidate for TPA, she was kept on Eliquis and Plavix. Possibility of CEA was discussed with the family as well as cardiothoracic surgeon, it was decided not to pursue currently, Given the significant comorbid condition of the patient. She was also managed for sepsis, secondary to bilateral lower extremity ulcer as well as sacral ulcer, bilateral ankle CT without contrast: CT ankle RT wo con: Cellulitis with a soft tissue ulceration overlying the lateral malleolus. No definite organized collection. CT ankle LT wo con:soft tissue cellulitis along the calcaneus. No CT evidence for osteomyelitis. CT abdomen pelvis wo con: No acute intra-abdominal pathology,moderate right pleural effusion. There is right lower lobe lung consolidation consistent with atelectasis and/or pneumonia.mild inflammation in the superficial soft tissues along the sacrum. No abscess. No evidence for sacral osteomyelitis. he was kept on broad-spectrum antibiotics, required pressor support for some time during the hospital stay, blood cultures were negative, peritoneal fluid WBC count was normal, left lower extremity wound debridement was done, patient has been advised to do wet-to-dry dressing of the wound, and follow in wound care clinic. Patient was also managed for NSTEMI type II, at one point in time she was scheduled for stress test, even needed for cardiology clearance if CEA was to be done in future, But given the overall poor prognosis of the patient it was not pursued. She was continued on peritoneal dialysis, for A. fib she was continued on amiodarone as well as Eliquis for anticoagulation, at the time of discharge patient was hemodynamically stable, she was afebrile, she was off pressors, she was continued on midodrine dose of which was increased to 10 mg p.o. 3 times daily, from 5 mg p.o. TID, family was inclined to take the patient back home, at the time of discharge was discharged on p.o. levofloxacin as well as Augmentin. Overall prognosis of the patient is poor given her significant underlying comorbid condition and continued progressive decline. She will continue to follow her primary care physician front office manager cardiothoracic surgeon as an outpatient.Patient was discharged in stable condition to home. Physical Exam Narrative: EXAM NARRATIVE: Alert and Awake HENMT: COMMON NORMALS: normocephalic and atraumatic HEAD & SCALP: normocephalic and atraumatic Resp: COMMON NORMALS: clear to auscultation bilaterally EFFORT & INSPECTION: Yes symmetric chest movement AUSCULTATION: clear to auscultation bilaterally Cardio: COMMON NORMALS: regular rate, regular rhythm, S1 normal heart sound present, S2 normal heart sound present, No gallops present (Cardio), No murmurs present (Cardio), No rub (Cardio) and Peripheral pulses 2+ throughout RATE: regular rate RHYTHM: regular rhythm HEART SOUNDS: S1 normal heart sound present and S2 normal heart sound present PERIPHERAL PULSES: Peripheral pulses 2+ throughout GI: COMMON NORMALS: Normal to inspection, nondistended, normoactive bowel sounds present, Soft to palpation, non-tender, No hepatosplenomegaly present and no masses AUSCULTATION: Yes normoactive bowel sounds PALPATION: Yes Soft to palpation and Yes No hepatosplenomegaly present RECTAL EXAM: deferred Extremity: OTHER: Left and rt heel ulcer, sacral ulcer Discharge Data Data Completed and Pending: Completed Studies During Hospitalization Category Date Time Status CT abdomen pelvis wo con [id number] Rout ine Cat Scan 05/30/21 13:[address] angio headneck * [id number] Stat Cat Scan 05/29/21 18:[address] ankle LT wo co n* [id number] Routine Cat Scan 05/30/21 13:[address] ankle RT wo co n* [id number] Routine Cat Scan 06/01/21 09:[address] head wo con* 7 [id number] Stat Cat Scan 05/29/21 12:54 Completed XR chest 1V calin ble [id number] Stat Exams 05/29/21 12:54 Completed CV. echo complete * [id number] Routine Ultrasound 05/30/21 17:35 Completed Pending at discharge Category Date Time Status Sestamibi Stress Test Request Deja ne Exams 06/01/21 07:00 Stop Req Blood Culture Sta t Lab 05/29/21 14:32 Results Complete Blood Co unt w/Auto AM LABS Lab 06/04/21 04:00 Ordered Comprehensive Met abolic Panel AM LA BS Lab 06/04/21 04:00 Ordered Labs from last 24 hours 06/03/21 06/03/21 06/03/21 06:40 05:30 05:30 WBC 13.3 H RBC 2.60 L Hgb 9.1 L Hct 28.8 L MCV 110.8 H MCH 35.0 H MCHC 31.6 RDW 22.0 H Plt Count 140 D MPV 11.1 H Neut % (Auto) 74.8 Lymph % (Auto) 7.2 [place] % (Auto) 5.3 Eos % (Auto) 0.0 Baso % (Auto) 0.5 Neut # (Auto) 9.97 H Lymph # (Auto) 1.0 [place] # (Auto) 0.7 Eos # (Auto) 0.0 Baso # (Auto) 0.1 Nucleated RBC % (a uto) 0.2 Nucleated RBCs # 0.0 Sodium 132 L Potassium 4.6 Chloride 99 Carbon Dioxide 17 L Anion Gap 20.6 H BUN 33 H Creatinine 3.9 H GFR Calculation Not Reportable Glucose 168 H POC Glucose 193 H Calculated Osmolal ity 285 Calcium 9.0 Total Bilirubin 0.4 AST 20 ALT 18 Alkaline Phosphata se 89 Total Protein 4.6 L Albumin 2.9 L Globulin 1.7 06/02/21 17:07 WBC RBC Hgb Hct MCV MCH MCHC RDW Plt Count MPV Neut % (Auto) Lymph % (Auto) [place] % (Auto) Eos % (Auto) Baso % (Auto) Neut # (Auto) Lymph # (Auto) [place] # (Auto) Eos # (Auto) Baso # (Auto) Nucleated RBC % (a uto) Nucleated RBCs # Sodium Potassium Chloride Carbon Dioxide Anion Gap BUN Creatinine GFR Calculation Glucose POC Glucose 147 H Calculated Osmolal ity Calcium Total Bilirubin AST ALT Alkaline Phosphata se Total Protein Albumin Globulin Vitals: Last Vital Signs Temp 98.4 F 06/03/21 07:00 Pulse 90 06/03/21 07:00 Resp 16 06/03/21 07:00 BP 107/63 06/03/21 07:00 Pulse Ox 96 06/03/21 07:00 Discharge Plan Discharge Patient Disposition: Home Condition: Stable Prescriptions: New levofloxacin 500 mg tablet 500 mg PO Q48H 7 Days Qty: 4 RF: 0 Augmentin 500-125 mg tablet 1 tab PO DAILY Qty: 7 RF: 0 Continued amiodarone 200 mg tablet 200 mg PO QAM RF: 0 apixaban 2.5 mg tablet 2.5 mg PO BID RF: 0 Hold Instructions: Resume on 09/27/20. cholecalciferol (vitamin D3) 25 mcg (1,000 unit) capsule 25 mcg PO DAILY RF: 0 mirtazapine 30 mg tablet 30 mg PO BEDTIME RF: 0 pantoprazole 20 mg tablet,delayed release (DR/EC) 20 mg PO DAILY@12 RF: 0 tramadol 50 mg tablet 50 mg PO Q6H PRN (Reason: Pain) RF: 0 simvastatin 20 mg tablet 20 mg PO BEDTIME RF: 0 docusate sodium 100 mg tablet 100 - 200 mg PO BEDTIME RF: 0 escitalopram oxalate [Lexapro] 20 mg tablet 20 mg PO DAILY RF: 0 tizanidine 2 mg capsule 2 mg PO DAILY PRN (Reason: Muscle Spasm) RF: 0 RenaPlex-D 800 mcg-12.5 mg -2,000 unit tablet 1 tab PO DAILY@12 RF: 0 calcium acetate 667 mg Tablet 667 mg PO TID RF: 0 ipratropium-albuterol 0.5 mg-3 mg(2.5 mg base)/3 mL solution for nebulization 3 ml INHALATION .2-4 TIMES A DAY RF: 0 Pataday Twice Daily Relief 0.1 % drops 1 drp ophthalmic (eye) BID RF: 0 Miralax 17 gram/dose Powder 17 g PO DAILY PRN (Reason: Constipation) RF: 0 Novolog Flexpen U-100 Insulin 100 unit/mL (3 mL) insulin pen See Rx Instructions .ROUTE .COMPLEX RF: 0 Changed midodrine 5 mg tablet 10 mg PO TID Qty: 0 RF: 0 Held metoprolol tartrate 25 mg tablet 12.5 mg PO BID RF: 0 Hold Instructions: Resume on 06/06/21. Monitor the B/P at home if SBP > 110 Resume Discontinued gentamicin 0.1 % cream See Rx Instructions .ROUTE .COMPLEX RF: 0 Discharge Orders: Discharge Order (Routine); Ordered 06/03/21 Ordered By: Maverick Omalley Other Ambulatory Orders: DME: Oxygen (Order) Location: None Selected Ordered By: Maverick Omalley DME: Oxygen (Order) Location: None Selected Ordered By: Maverick Omalley Referrals: Karuna Curtis MD [Primary Care Provider] - 06/11/21 11:15 am Shiv Mendoza MD [Physician] - 2 weeks (PLEASE CALL FOR APPOINTMENT [phone]) Selena Srivastava MD [Physician] - 06/17/21 3:30 pm Discharge Diet: Soft Mechanical Patient Instructions: Amoxicillin/Clavulanate Potassium (By mouth), Levofloxacin (By mouth), Heart Attack (GEN), Sepsis (GEN), Acute Wound Care (GEN), Opioid Safety Activity Restrictions/Additional Instructions: WET TO DRY DAILY DRESSING, CALL THE WOUND CARE CLINIC FOR MORE ASSISTANCE IF NEEDED. Discharge Attestations Time Spent in Discharge Care*: less than 30 min Specific Discharge Activities: educating patient, educating and/or supporting family/caregiver, discussing with pcp/other providers, discussing with family independence case manager/social workers/dc planners, documenting/other paperwork and evaluating patient/reviewing data Status at Discharge: Cognitive status at discharge: cognitively intact, Behavioral status at discharge: cooperative, Functional status at discharge: other assisted ambulation Overall status at discharge: patient is progressing back to baseline Quality Metrics Clinical Quality Measures During this hospital stay, did patient experience: None Coding Level of Care Code Acute Chg FW DC note Diagnoses Acute hypokalemia E87.6 Carotid artery disease I77.9 Hypotension I95.9 Bedbound Z74.01 CVA (cerebral vascular accident) I63.9 CVA mechanism: unspecified GERD (gastroesophageal reflux disease) K21.9 End stage renal failure on dialysis N18.6; Z99.2 Chronic anticoagulation Z79.01 Atrial fibrillation with RVR I48.91 CAP (community acquired pneumonia) J18.9 Sacral ulcer L98.429 Ulcer of left heel L97.429
[2021-06-03 12:10] LABS: Glucose Point of Care 112 mg/dL (70-110)
[2021-06-03] MEDS: pantoprazole DR 40 mg Tablet PO (12:17)
--- NOTE | 2021-06-03 12:27 | PM.PN ---
Subjective Subjective: Interval history: She appears very weak, very feeble. Peritoneal dialysis is uneventful. Hemodynamics remains stable. Medications: Medication Review Details: Generic Name Dose Route Start Last Admin Trade Name Kelly PRN Reason Stop Dose Admin Acetaminophen 650 mg 05/29/21 17:35 05/31/21 20:20 Acetaminophen 32 5 Mg Tablet PO 650 mg Q6H PRN Administration Mild/Mod Pain Or Temp >/= 101 Amiodarone HCl 200 mg 05/31/21 16:20 06/01/21 05:41 Amiodarone 200 M g Tablet PO 200 mg QAM BLADIMIR Administration Atorvastatin Calci um 20 mg 05/29/21 21:00 05/31/21 20:19 Atorvastatin 40 Mg Tablet PO 20 mg BEDTIME BLADIMIR Administration Calcium Acetate 667 mg 05/29/21 21:00 06/01/21 08:20 Calcium Acetate 667 Mg Capsule PO 667 mg TID BLADIMIR Administration Clopidogrel Bisulf ate 75 mg 05/30/21 09:00 06/01/21 08:21 Clopidogrel 75 M g Tablet PO 75 mg DAILY BLADIMIR Administration Collagenase 1 applic 05/31/21 09:00 06/01/21 11:07 Collagenase Oint 30 Gm TOPICAL 1 applic DAILY BLADIMIR Administration Enoxaparin Sodium 90 mg 05/31/21 09:00 06/01/21 08:21 Enoxaparin 100 M g/Ml Syringe 1 mg/kg (90 mg) 90 mg SUBCUT Administration DAILY BLADIMIR Hydrocortisone Sod ium Succinate 100 mg 05/31/21 16:20 06/01/21 05:41 Hydrocortisone 1 00 Mg/2 Ml Sdv IVP 100 mg Q12H BLADIMIR Administration Norepinephrine Bit artrate 4 mg 254 mls @ 0 mls/h r 05/29/21 14:15 06/01/21 09:54 / Dextrose IV 0 mcg/min .Q0M BLADIMIR 0 mls/hr Titration Protocol Per Protocol Vancomycin HCl 750 mg/ Sodium 250 mls @ 250 mls /hr 05/30/21 14:00 05/30/21 17:17 Chloride IV Infused Q60H BLADIMIR Infusion Piperacillin Sod/T azobactam 50 mls @ 12.5 mls /hr 05/30/21 16:00 06/01/21 09:42 Sod 3.375 gm/ So dium Chloride IV Infused Q12H BLADIMIR Infusion Insulin Human Lisp ro 0 unit 05/29/21 18:00 06/01/21 13:22 Insulin Lispro 1 00 Unit/1 Ml SUBCUT 6 unit TIDWM [facility] Administration Protocol Midodrine 10 mg 05/31/21 21:00 06/01/21 08:21 Midodrine 5 Mg T ablet PO 10 mg TID BLADIMIR Administration Non-Formulary Medi cation 1 tab 05/30/21 12:00 06/01/21 13:20 Vit B,C-Fa-Zinc- Selen-Vit D3-E [Re naplex-D] PO Not Given DAILY@12 [facility] Pantoprazole Sodiu m 40 mg 05/30/21 12:00 05/31/21 14:[address] 40 Mg Tablet PO 40 mg DAILY@12 [facility] Administration Senna/Docusate Sod ium 1 tab 06/01/21 09:00 06/01/21 08:20 Sennosides-Docus ate Tablet PO 1 tab DAILY [facility] Administration Vitamin D 1,000 unit 05/30/21 09:00 06/01/21 08:21 Cholecalciferol (Vitamin D3) 1,000 Unit Tablet PO 1,000 unit DAILY BLADIMIR Administration Vitals/I&O/Wt Last Vital Signs Temp 97.6 F 06/03/21 11:00 Pulse 93 06/03/21 11:00 Resp 16 06/03/21 11:00 BP 111/68 06/03/21 11:00 Pulse Ox 96 06/03/21 11:00 06/02/21 06/03/21 06/03/21 22:59 06:59 14:59 Intake Total 470 / 520 110 / 110 Balance 470 / 520 110 / 110 Physical Exam Narrative: EXAM NARRATIVE: Constitutional: Drowsy HEENT: Wet mucosa, no jvp, non icteric Lungs: Bilaterally clear without discernible wheeze or rales in all lung zones CVS: S1 S2, no murmurs Abdo: Soft, BS ok, PD exit site looks good Ext 4: Minimal edema, peripheral perfusion with no cyanosis Neurological: Grossly non-focal Data : 06/03/21 05:30 06/03/21 05:30 Micro: Microbiology 05/31/21 08:50 Gram Stain - Final Peritoneal Fluid Body Fluid Culture - Final A&P Additional A&P Information 1. ESRD To continue peritoneal dialysis CCPD with 10 on the cycler with 4 exchanges of 1.5% (yellow), 1950 mL per exchange. Empty during the day. Being managed by her daughter Dose medication for GFR less than 15 on PD Strict I's and O's 2. Altered mental status CT with findings of subacute RESPIRATORY MEDICINE PHYSICIAN territory CVA Leukocytosis noted with unclear source of infection, unclear infectious source Hemodynamic lability also noted 3. Chemistry Continue oral sodium bicarbonate on DC 4. Hemodynamics Soft but stable ok for DC today from my perspective D/w family at bedside Exam and interview performed with aid of bedside RN using telemedicine Time spent 20 min inc > 50% of time in face to face counseling Gregory Bear MD [facility] [phone] Attestations Medical Necessity Statement*: Eval for ESRD mgmt Coding Level of Care Code Acute Supervisor Mechanic [employer]ilermaking for Lilliang Jules
--- NOTE | 2021-06-03 14:31 | PC.SOCIAL ---
IMM Update pg 2 of [facility] updated and reviewed w/ patient, patients daughter and patients . Copy provided.
== END 2021-06-03 14:08 | disposition home health service (06) | DRG 853 ==
LOC: ER 15:22 → ICU 16:57 → MEDSURG 06-03 11:35 → ICU 06-04 10:58
PROVIDERS: Internal Medicine Nephrology; Admitting Provider Internal Medicine; Emergency Provider Family Medicine; PCP Family Medicine; Visit Provider Internal Medicine
DX: A41.9 Sepsis, unspecified organism (principal); L89.623 Pressure ulcer of left heel, stage 3; R65.21 Severe sepsis with septic shock; N18.6 End stage renal disease; J18.9 Pneumonia, unspecified organism; I21.A1 Myocardial infarction type 2; I48.20 Chronic atrial fibrillation, unspecified; I13.2 Hypertensive heart and chronic kidney disease with heart failure and with stage 5 chronic kidney disease, or end stage renal disease; L03.115 Cellulitis of right lower limb; L89.152 Pressure ulcer of sacral region, stage 2; I25.10 Atherosclerotic heart disease of native coronary artery without angina pectoris; Z95.1 Presence of aortocoronary bypass graft; Z95.5 Presence of coronary angioplasty implant and graft; Z99.2 Dependence on renal dialysis; E11.22 Type 2 diabetes mellitus with diabetic chronic kidney disease; I50.9 Heart failure, unspecified; J44.9 Chronic obstructive pulmonary disease, unspecified; Z87.891 Personal history of nicotine dependence; Z87.01 Personal history of pneumonia (recurrent); D64.9 Anemia, unspecified; K21.9 Gastro-esophageal reflux disease without esophagitis; E78.2 Mixed hyperlipidemia; Z74.01 Bed confinement status; I95.9 Hypotension, unspecified; Z79.4 Long term (current) use of insulin; I65.01 Occlusion and stenosis of right vertebral artery; E83.42 Hypomagnesemia; E87.6 Hypokalemia; I65.21 Occlusion and stenosis of right carotid artery
CPT/HCPCS: 36415; 36416; 36600; 70450; 70496; 70498; 71045; 73700; 74176; 80048; 80051; 80053; 80061; 80500; 82009; 82330; 82533; 82550; 82805; 82962; 83605; 83690; 83735; 84145; 84443; 84484; 85007; 85025; 85651; 86140; 87040; 87070; 87075; 87205; 89050; 92507; 92526; 92610; 93005; 93306; 96365; 96366; 96367; 96372; 96375; 97161; 97530; 97760; 99291; 99292; J0692; J0696; J1650; J1720; J1815; J2543; J3370; J3475; J3480; J7050; P9041; P9047; Q0167; Q3014; Q9967